=== PATIENT | female | born 1980 | race Caucasian/White ===

== ENCOUNTER 2016-11-29 16:11 | Emergency (ER) | payer MEDICAID ==
[~2016-11-29] VITALS: Ht 165.1 cm; Wt 99.8 kg
[~2016-11-29 16:11] MED LIST: ACHD5005 PO; ALPR1TAB2 PO; BUPR150T6 PO; BUTA-234 PO; HYDR1TAB8 OP; IBP600T1 PO; OXYC-197 PO; PREN-115 PO; SRTR100T PO; XANAX; [UNRECOGNIZED DRUG - REMARK]
--- OUTSIDE RECORDS SUMMARY | 2016-11-29 16:16 | XMS REPORT ---
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
--- OUTSIDE RECORDS SUMMARY | 2016-11-29 16:16 | XMS REPORT ---
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
--- OUTSIDE RECORDS SUMMARY | 2016-11-29 16:17 | XMS REPORT | Continuity of Care Document ---
Author Author [facility] Organization [facility] Address Unknown Phone Unavailable Allergies Active Description Code Type Severity Reaction Onset Reported/Identified Relationship to Patient Clinical Status Yes NKANo Known Allergies NKA Miscellaneous Allergy Unknown N/ A 12/21/2005 Medications Problems Date Dx Coded Attending Type Code Diagnosis Diagnosed By 08/11/2009 Ot 303.92 08/11/2009 Ot 571.1 08/11/2009 Ot 577.0 08/11/2009 [facility] 599.0 [facility] Major Depressive Affective Disorder Recurrent Episode Unspecified Degree 10/01/2010 [facility] 305.00 ALCOHOL ABUSE UNSPEC 10/01/2010 [facility] 307.51 Bulimia Nervosa 10/01/2010 [facility] 296.30 Major Depressive Affective Disorder Recurrent Episode Unspecified Degree 10/01/2010 [facility] 305.00 ALCOHOL ABUSE UNSPEC 10/01/2010 [facility] R 307.51 Bulimia Nervosa 10/01/2010 [facility] 296.30 Major Depressive Affective Disorder Recurrent Episode Unspecified Degree 10/01/2010 [facility] 305.00 ALCOHOL ABUSE UNSPEC 10/01/2010 [facility] 307.51 Bulimia Nervosa 10/01/2010 296.30 Major Depressive Affective Disorder Recurrent Episode Unspecified Degree 10/01/2010 305.00 ALCOHOL ABUSE UNSPEC 10/01/2010 307.51 Bulimia Nervosa 10/01/2010 296.30 Major Depressive Affective Disorder Recurrent Episode Unspecified Degree 10/01/2010 305.00 ALCOHOL ABUSE UNSPEC 10/01/2010 307.51 Bulimia Nervosa 10/01/2010 296.30 Major Depressive Affective Disorder Recurrent Episode Unspecified Degree 10/01/2010 305.00 ALCOHOL ABUSE UNSPEC 10/01/2010 307.51 Bulimia Nervosa 10/01/2010 296.30 Major Depressive Affective Disorder Recurrent Episode Unspecified Degree 10/01/2010 305.00 ALCOHOL ABUSE UNSPEC 10/01/2010 307.51 Bulimia Nervosa 10/01/2010 [facility], JAI R 296.30 Major Depressive Affective Disorder Recurrent Episode Unspecified Degree 10/01/2010 [facility], JAI R 305.00 ALCOHOL [facility]BUSE [facility]PEC [facility]51 Bulimia Nervosa 10/01/2010 [facility], JAI R 296.30 Major Depressive Affective Disorder Recurrent Episode Unspecified Degree 10/01[facility] 305.00 ALCOHOL ABUSE UNSPEC 10/01/2010 [facility], JAI R 307.51 Bulimia Nervosa 10/01/2010 [facility], JAI R 296.30 Major Depressive Affective Disorder Recurrent Episode Unspecified Degree 10/01/2010 [facility], JAI R 305.00 ALCOHOL ABUSE UNSPEC 10/01/2010 [facility] 307.51 Bulimia Nervosa 10/01/2010 [facility], JAI R 296.30 Major Depressive Affective Disorder Recurrent Episode Unspecified Degree 10/01/2010 [facility] R 305.00 ALCOHOL ABUSE UNSPEC 10/01/2010 [facility] R 307.51 Bulimia Nervosa 10/01/2010 [facility], JAI R 296.30 Major Depressive Affective Disorder Recurrent Episode Unspecified Degree 10/01/2010 [facility] R 305.00 ALCOHOL ABUSE UNSPEC 10/01/2010 [facility] R 307.51 Bulimia Nervosa 10/01/2010 [facility], JAI R 296.30 Major Depressive Affective Disorder Recurrent Episode Unspecified Degree 10/01/2010 [facility] R 305.00 ALCOHOL ABUSE UNSPEC 10/01/2010 [facility] R 307.51 Bulimia Nervosa 10/01/2010 [facility] R 296.30 Major Depressive Affective Disorder Recurrent Episode Unspecified Degree 10/01/2010 [facility] 305.00 ALCOHOL ABUSE UNSPEC 10/01/2010 [facility], JAI R 307.51 Bulimia Nervosa 10/01/2010 [facility], JAI R 296.30 Major Depressive Affective Disorder Recurrent Episode Unspecified Degree 10/01/[facility] 305.00 ALCOHOL ABUSE UNSPEC 10/01/2010 [facility], JAI R 307.51 Bulimia Nervosa 10/01/2010 [facility], JAI R 296.30 Major Depressive Affective Disorder Recurrent Episode Unspecified Degree 10/01/2010 [facility], JAI R 305.00 ALCOHOL ABUSE UNSPEC 10/01/2010 [facility], JAI R 307.51 Bulimia Nervosa 10/01/2010 [facility], JAI R 296.30 Major Depressive Affective Disorder Recurrent Episode Unspecified Degree 10/01/2010 [facility], JAI R 305.00 ALCOHOL ABUSE UNSPEC 10/01/2010 [facility], JAI R 307.51 Bulimia Nervosa 10/01/2010 [facility] [facility], TERESA R 296.30 Major Depressive Affective Disorder Recurrent Episode Unspecified Degree 10/01/2010 [facility] [employer], TERESA R 305.00 ALCOHOL ABUSE UNSPEC 10/01/2010 [employer] [employer], TERESA R 307.51 Bulimia Nervosa 10/01/2010 CAROLYN ABEBE VLADIMIR S 296.30 Major Depressive Affective Disorder Recurrent Episode Unspecified Degree 10/01/2010 CARLOYN [place] VLADIMIR S 305.00 ALCOHOL ABUSE UNSPEC 10/01/2010 CAROLYN [place]N VLADIMIR S 307.51 Bulimia Nervosa 11/03/2010 [facility], JAI R 078.10 Viral Warts Unspecified 11/03/2010 [facility], JAI R 300.00 AN ANXIETY UNSPEC 11/03/2010 [facility], JAI R 311 DEPRESSIVE DISORDER NOS 11/03/2010 [facility], JAI R 592.9 Urinary Calculus Unspecified 11/03/2010 [facility], JAI R 599.0 Urinary Tract Infection Site Not Specified 11/03/2010 [facility], JIA R 796.2 Elevated Blood Pressure Reading Without Diagnosis Of Hypertension 11/03/2010 [facility], JAI R 078.10 Viral Warts Unspecified 11/03/2010 [facility], JAI R 300.00 AN ANXIETY UNSPEC 11/03/2010 [facility], JAI R 311 DEPRESSIVE DISORDER NOS 11/03/2010 [facility], AJI R 592.9 Urinary Calculus Unspecified 11/03/2010 [facility], JAI R 599.0 Urinary Tract Infection Site Not Specified 11/03/2010 [facility], JAI R 796.2 Elevated Blood Pressure Reading Without Diagnosis Of Hypertension 11/03/2010 [facility], JAI R 078.10 Viral Warts Unspecified 11/03/2010 [facility] R 300.00 AN ANXIETY UNSPEC 11/03/2010 [facility], JAI R 311 DEPRESSIVE DISORDER NOS 11/03/2010 [facility] AJ[facility] R 592.9 Urinary Calculus Unspecified 11/03/2010 [facility], JAI R 599.0 Urinary Tract Infection Site Not Specified 11/03/2010 [facility], JAI R 796.2 Elevated Blood Pressure Reading Without Diagnosis Of Hypertension 11/03/2010 078.10 Viral Warts Unspecified 11/03/2010 300.00 AN ANXIETY UNSPEC 11/03/2010 311 DEPRESSIVE DISORDER NOS 11/03/2010 592.9 Urinary Calculus Unspecified 11/03/2010 599.0 Urinary Tract Infection Site Not Specified 11/03/2010 796.2 Elevated Blood Pressure Reading Without Diagnosis Of Hypertension 11/03/2010 078.10 Viral Warts Unspecified 11/03/2010 300.00 AN ANXIETY UNSPEC 11/03/2010 311 DEPRESSIVE DISORDER NOS 11/03/2010 592.9 Urinary Calculus Unspecified 11/03/2010 599.0 Urinary Tract Infection Site Not Specified 11/03/2010 796.2 Elevated Blood Pressure Reading Without Diagnosis Of Hypertension 11/03/2010 078.10 Viral Warts Unspecified 11/03/2010 300.00 AN ANXIETY UNSPEC 11/03/2010 311 DEPRESSIVE DISORDER NOS 11/03/2010 592.9 Urinary Calculus Unspecified 11/03/2010 599.0 Urinary Tract Infection Site Not Specified 11/03/2010 796.2 Elevated Blood Pressure Reading Without Diagnosis Of Hypertension 11/03/2010 078.10 Viral Warts Unspecified 11/03/2010 300.00 AN ANXIETY UNSPEC 11/03/2010 311 DEPRESSIVE DISORDER NOS 11/03/2010 592.9 Urinary Calculus Unspecified 11/03/2010 599.0 Urinary Tract Infection Site Not Specified 11/03/2010 796.2 Elevated Blood Pressure Reading Without Diagnosis Of Hypertension 11/03/2010 [facility], JAI R 078.10 Viral Warts Unspecified 11/03/2010 [facility] 300.00 AN ANXIETY UNSPEC 11/03/2010 [facility], JAI R 311 DEPRESSIVE DISORDER NOS 11/03/2010 [facility], JAI R 592.9 Urinary Calculus Unspecified 11/03/2010 [facility], JAI R 599.0 Urinary Tract Infection Site Not Specified 11/03/2010 [facility], JAI R 796.2 Elevated Blood Pressure Reading Without Diagnosis Of Hypertension 11/03/2010 [facility], JAI R 078.10 Viral Warts Unspecified 11/03/2010 [facility], JAI R 300.00 AN ANXIETY UNSPEC 11/03/2010 [facility], JAI R 311 DEPRESSIVE DISORDER NOS 11/03/2010 [facility] 592.9 Urinary Calculus Unspecified 11/03/2010 [facility], JAI R 599.0 Urinary Tract Infection Site Not Specified 11/03/2010 [facility] R 796.2 Elevated Blood Pressure Reading Without Diagnosis Of Hypertension 11/03/2010 [facility], JAI R 078.10 Viral Warts Unspecified 11/03/2010 [facility], JAI R 300.00 AN ANXIETY UNSPEC 11/03/2010 [facility], JAI R 311 DEPRESSIVE DISORDER NOS 11/03/2010 [facility] R 592.9 Urinary Calculus Unspecified 11/03/2010 [facility], JAI R 599.0 Urinary Tract Infection Site Not Specified 11/03/2010 [facility] R 796.2 Elevated Blood Pressure Reading Without Diagnosis Of Hypertension 11/03/2010 [facility] R 078.10 Viral Warts Unspecified 11/03/2010 [facility] JAI R 300.00 AN ANXIETY UNSPEC 11/03/2010 [facility], JAI R 311 DEPRESSIVE DISORDER NOS 11/03/2010 [facility] R 592.9 Urinary Calculus Unspecified 11/03/2010 [facility] JAI R 599.0 Urinary Tract Infection Site Not Specified 11/03/2010 [facility] JAI R 796.2 Elevated Blood Pressure Reading Without Diagnosis Of Hypertension 11/03/2010 [facility] JAI R 078.10 Viral Warts Unspecified 11/03/2010 [facility], JAI R 300.00 AN ANXIETY UNSPEC 11/03/2010 [facility], JAI R 311 DEPRESSIVE DISORDER NOS 11/03/2010 [facility], JAI R 592.9 Urinary Calculus Unspecified 11/03/2010 [facility], JAI R 599.0 Urinary Tract Infection Site Not Specified 11/03/2010 [facility] R 796.2 Elevated Blood Pressure Reading Without Diagnosis Of Hypertension 11/03/2010 [facility], JAI R 078.10 Viral Warts Unspecified 11/03/2010 [facility], JAI R 300.00 AN ANXIETY UNSPEC 11/03/2010 [facility], JAI R 311 DEPRESSIVE DISORDER NOS 11/03/2010 [facility], JAI R 592.9 Urinary Calculus Unspecified 11/03/2010 [facility] R 599.0 Urinary Tract Infection Site Not Specified 11/03/2010 [facility] JAI R 796.2 Elevated Blood Pressure Reading Without Diagnosis Of Hypertension 11/03/2010 [facility], JAI R 078.10 Viral Warts Unspecified 11/03/2010 [facility], JAI R 300.00 AN ANXIETY UNSPEC 11/03/2010 [facility] R 311 DEPRESSIVE DISORDER NOS 11/03/2010 [facility] JAI R 592.9 Urinary Calculus Unspecified 11/03/2010 [facility] J[facility] R 599.0 Urinary Tract Infection Site Not Specified 11/03/2010 [facility] JAI R 796.2 Elevated Blood Pressure Reading Without Diagnosis Of Hypertension 11/03/2010 [facility] JAI R 078.10 Viral Warts Unspecified 11/03/2010 [facility] JAI R 300.00 AN ANXIETY UNSPEC 11/03/2010 [facility], JAI R 311 DEPRESSIVE DISORDER NOS 11/03/2010 [facility] J[facility] R 592.9 Urinary Calculus Unspecified 11/03/2010 [facility] J[facility] R 599.0 Urinary Tract Infection Site Not Specified 11/03/2010 [facility] JAI R 796.2 Elevated Blood Pressure Reading Without Diagnosis Of Hypertension 11/03/2010 [facility] JAI R 078.10 Viral Warts Unspecified 11/03/2010 [facility], JAI R 300.00 AN ANXIETY UNSPEC 11/03/2010 [facility], JAI R 311 DEPRESSIVE DISORDER NOS 11/03/2010 [facility], JAI R 592.9 Urinary Calculus Unspecified 11/03/2010 [facility], JAI R 599.0 Urinary Tract Infection Site Not Specified 11/03/2010 [facility], JAI R 796.2 Elevated Blood Pressure Reading Without Diagnosis Of Hypertension 11/03/2010 [facility]THAK [facility], JAI R 078.10 Viral Warts Unspecified 11/03/2010 [facility], JAI R 300.00 AN ANXIETY UNSPEC 11/03/2010 SARHTAK [facility], JAI R 311 DEPRESSIVE DISORDER NOS 11/03/2010 [facility], JAI R 592.9 Urinary Calculus Unspecified 11/03/2010 [facility], JAI R 599.0 Urinary Tract Infection Site Not Specified 11/03/2010 [facility], JAI R 796.2 Elevated Blood Pressure Reading Without Diagnosis Of Hypertension 11/03/2010 GISELLE LEE APRNIA R 078.10 Viral Warts Unspecified 11/03/2010 GISELLE LEE APRNIA R 300.00 AN ANXIETY UNSPEC 11/03/2010 GISELLE LEE APRNIA R 311 DEPRESSIVE DISORDER NOS 11/03/2010 PEGGY LEE APRNRICIA R 592.9 Urinary Calculus Unspecified 11/03/2010 PEGGY LEE APRNRICIA R 599.0 Urinary Tract Infection Site Not Specified 11/03/2010 GISELLE LEE APRNIA R 796.2 Elevated Blood Pressure Reading Without Diagnosis Of Hypertension 11/03/2010 VLADIMIR LEON APRN S 078.10 Viral Warts Unspecified 11/03/2010 VLADIMIR LEON APRN S 300.00 AN ANXIETY UNSPEC 11/03/2010 VLADIMIR LEON APRN S 311 DEPRESSIVE DISORDER NOS 11/03/2010 LOKI LEON APRNNDA S 592.9 Urinary Calculus Unspecified 11/03/2010 LOKI LEON APRNNDA S 599.0 Urinary Tract Infection Site Not Specified 11/03/2010 LOKI LEON APRNNDA S 796.2 Elevated Blood Pressure Reading Without Diagnosis Of Hypertension 01/20/2011 [facility], JAI R 401.9 Unspecified Essential Hypertension 01/20/2011 [facility], JAI R 401.9 Unspecified Essential Hypertension 01/20/2011 [facility], JAI R 401.9 Unspecified Essential Hypertension 01/20/2011 401.9 Unspecified Essential Hypertension 01/20/2011 401.9 Unspecified Essential Hypertension 01/20/2011 401.9 Unspecified Essential Hypertension 01/20/2011 401.9 Unspecified Essential Hypertension 01/20/2011 [facility], JAI R 401.9 Unspecified Essential Hypertension 01/20/2011 [facility], JAI R 401.9 Unspecified Essential Hypertension 01/20/2011 [facility], JAI R 401.9 Unspecified Essential Hypertension 01/20/2011 [facility], JAI R 401.9 Unspecified Essential Hypertension 01/20/2011 [facility], JAI R 401.9 Unspecified Essential Hypertension 01/20/2011 [facility], JAI R 401.9 Unspecified Essential Hypertension 01/20/2011 [facility], JAI R 401.9 Unspecified Essential Hypertension 01/20/2011 [facility], JAI R 401.9 Unspecified Essential Hypertension 01/20/2011 [facility], JAI R 401.9 Unspecified Essential Hypertension 01/20/2011 [facility], JAI R 401.9 Unspecified Essential Hypertension 01/20/2011 JESUS WHITTINGTONNTERESA R 401.9 Unspecified Essential Hypertension 01/20/2011 CAROLYN PERFECT BINDER SETTERADRIANAA S 401.9 Unspecified Essential Hypertension 01/28/2011 [facility], JAI R 401.1 BENIGN ESSENTIAL HYPERTENSION 01/28/2011 [facility], JAI R 401.1 BENIGN ESSENTIAL HYPERTENSION 01/28/2011 [facility], JAI R 401.1 BENIGN ESSENTIAL HYPERTENSION 01/28/2011 401.1 BENIGN ESSENTIAL HYPERTENSION 01/28/2011 401.1 BENIGN ESSENTIAL HYPERTENSION 01/28/2011 401.1 BENIGN ESSENTIAL HYPERTENSION 01/28/2011 401.1 BENIGN ESSENTIAL HYPERTENSION 01/28/2011 [facility], JAI R 401.1 BENIGN ESSENTIAL HYPERTENSION 01/28/2011 [facility], JAI R 401.1 BENIGN ESSENTIAL HYPERTENSION 01/28/2011 [facility], JAI R 401.1 BENIGN ESSENTIAL HYPERTENSION 01/28/2011 [facility], JAI R 401.1 BENIGN ESSENTIAL HYPERTENSION 01/28/2011 [facility], JAI R 401.1 BENIGN ESSENTIAL HYPERTENSION 01/28/2011 [facility], JAI R 401.1 BENIGN ESSENTIAL HYPERTENSION 01/28/2011 [facility], JAI R 401.1 BENIGN ESSENTIAL HYPERTENSION 01/28/2011 [facility], JAI R 401.1 BENIGN ESSENTIAL HYPERTENSION 01/28/2011 [facility], JAI R 401.1 BENIGN ESSENTIAL HYPERTENSION 01/28/2011 [facility], JAI R 401.1 BENIGN ESSENTIAL HYPERTENSION 01/28/2011 TERESA LEE APRN R 401.1 BENIGN ESSENTIAL HYPERTENSION 01/28/2011 VLADIMIR LEON APRN S 401.1 BENIGN ESSENTIAL HYPERTENSION 03/03/2011 [facility], JAI R 786.2 COUGH 03/03/2011 [facility], JAI R 786.2 COUGH 03/03/2011 [facility], JAI R 786.2 COUGH 03/03/2011 786.2 COUGH 03/03/2011 786.2 COUGH 03/03/2011 786.2 COUGH 03/03/2011 786.2 COUGH 03/03/2011 [facility], JAI R 786.2 COUGH 03/03/2011 [facility], JAI R 786.2 [facility]2 COUGH 03/03/2011 [facility], JAI R 786.2 COUGH 03/03/2011 [facility], JAI R 786.2 COUGH 03/03/2011 [facility], JAI R 786.2 COUGH 03/03/2011 [facility], JAI R 786.2 COUGH 03/03/2011 [facility], JAI R 786.2 COUGH 03/03/2011 [facility], JAI R 786.2 COUGH 03/03/2011 [facility] 786.2 COUGH 03/03/2011 TERESA LEE APRN R 786.2 COUGH 03/03/2011 VLADIMIR LEON APRN S 786.2 COUGH 08/05/2011 [facility], JAI R 301.6 PD DEPENDENT 08/05/2011 [facility], JAI R 301.6 PD DEPENDENT 08/05/[facility] 301.6 PD DEPENDENT 08/05/2011 301.6 PD DEPENDENT 08/05/2011 301.6 PD DEPENDENT 08/05/2011 301.6 PD DEPENDENT 08/05/2011 301.6 PD DEPENDENT 08/05/2011 [facility], JAI R 301.6 PD DEPENDENT 08/05/[facility] R 301.6 PD DEPENDENT 08/05/2011 [facility], JAI R 301.6 PD DEPENDENT 08/05/2011 [facility], JAI R 301.6 PD DEPENDENT 08/05/2011 [facility], JAI R 301.6 PD DEPENDENT 08/05/2011 [facility], JAI R 301.6 PD DEPENDENT 08/05/2011 [facility], JAI R 301.6 PD DEPENDENT 08/05/2011 [facility], JAI R 301.6 PD DEPENDENT 08/05/2011 [facility], JAI R 301.6 PD DEPENDENT 08/05/2011 [facility], JAI R 301.6 PD DEPENDENT 08/05/2011 JESUS [employer], TERESA R 301.6 PD DEPENDENT 08/05/2011 CAROLYN [employer]TER, VLADIMIR S 301.6 PD DEPENDENT 12/10/2011 Ot 620.2 OVARIAN CYST NEC/NOS 12/10/2011 Ot 789.03 ABDOMINAL PAIN, RIGHT LOWER QUADRANT 02/10/2012 [facility], JAI R 034.0 STREP THROAT 02/10/2012 034.0 STREP THROAT 02/10/2012 034.0 STREP THROAT 02/10/2012 034.0 STREP THROAT 02/10/2012 034.0 STREP THROAT 02/10/2012 [facility], JAI R 034.0 STREP THROAT 02/10/2012 [facility], JAI R 034.0 STREP THROAT 02/10/2012 [facility], JAI R 034.0 STREP THROAT 02/10/2012 [facility], JAI R 034.0 STREP THROAT 02/10/2012 [facility], JAI R 034.0 STREP THROAT 02/10/2012 [facility], JAI R 034.0 STREP THROAT 02/10/2012 [facility], JAI R 034.0 STREP THROAT 02/10/2012 [facility], JAI R 034.0 STREP THROAT 02/10/2012 [facility], JAI R 034.0 STREP THROAT 02/10/2012 [facility], JAI R 034.0 STREP THROAT 02/10/2012 JESUS PERFECT BINDER SETTERPEGGYTERESA R 034.0 STREP THROAT 02/10/2012 CAROLYN PER[employer]ECT [employer]ER SETTER, VLADIMIR S 034.0 STREP THROAT 08/03/2012 GEOVANNA PANDEY DO Ot 300.00 ANXIETY STATE NOS 08/03/2012 GEOVANNA PANDEY DO Ot 311 DEPRESSIVE DISORDER NEC 08/03/2012 GEOVANNA PANDEY DO Ot 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 08/03/2012 GEOVANNA PANDEY DO Ot 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 08/03/2012 GEOVANNA PANDEY DO Ot V06.4 [id number] 08/03/2012 GEOVANNA PANDEY DO Ot V27.0 DELIVER-SINGLE LIVEBORN 09/11/2012 [facility], JAI R 462 ACUTE PHARYNGITIS 09/11/2012 [facility], JAI R 462 ACUTE PHARYNGITIS 09/11/2012 [facility], JAI R 462 ACUTE PHARYNGITIS 09/11/2012 [facility], JAI R 462 ACUTE PHARYNGITIS 09/11/2012 [facility], JAI R 462 ACUTE PHARYNGITIS 09/11/2012 [facility], JAI R 462 ACUTE PHARYNGITIS 09/11/2012 [facility], JAI R 462 ACUTE PHARYNGITIS 09/11/2012 [facility], JAI R 462 ACUTE PHARYNGITIS 09/11/2012 [facility], JAI R 462 ACUTE PHARYNGITIS 09/11/2012 [facility], JAI R 462 ACUTE PHARYNGITIS 09/11/2012 TERESA LEE APRN R 462 ACUTE PHARYNGITIS 09/11/2012 VLADIMIR LEON APRN S 462 ACUTE PHARYNGITIS 05/22/2013 ELBA HOLLIS, IBETH Kowalski Ot 620.2 OVARIAN CYST NEC/NOS 05/22/2013 ELBA HOLLIS, IBETH Kowalski Ot 789.09 ABDOMINAL PAIN, OTHER SPECIFIED SITE 08/13/2013 TERESA LEE APRN R 692.9 CONTACT DERMATITIS AND OTHER ECZEMA UNSPECIFIED CAUSE 08/13/2013 VLADIMIR LEON APRN S 692.9 CONTACT DERMATITIS AND OTHER ECZEMA UNSPECIFIED CAUSE 05/22/2014 VLADIMIR LEON APRN S 564.00 CONSTIPATION 05/22/2014 VLADIMIR LEON APRN S 780.79 FATIGUE 05/22/2014 VLADIMIR LEON APRN S 789.00 ABDOMINAL PAIN UNSPECIFIED SITE 05/22/2014 VLADIMIR LEON APRN V70.0 EXAM - ROUTINE H&P 06/04/2014 VLADIMIR LEON SIDING INSTALLER Ot 305.00 06/04/2014 VLADIMIR LEON SIDING INSTALLER Ot 780.79 06/04/2014 VLADIMIR LEON SIDING INSTALLER Ot 789.00 07/18/2014 VLADIMIR LEON SIDING INSTALLER Ot 305.00 07/18/2014 VLADIMIR LEON SIDING INSTALLER Ot 780.79 07/18/2014 VLADIMIR LEON SIDING INSTALLER Ot 789.00 05/26/2015 VLADIMIR LEON SIDING INSTALLER Ot 305.00 ALCOHOL ABUSE-UNSPEC 05/26/2015 VLADIMIR LEON SIDING INSTALLER Ot 780.79 OTH MALAISE FATIGUE 05/26/2015 VLADIMIR LEON SIDING INSTALLER Ot 789.00 ABDOMINAL PAIN, UNSPECIFIED SITE 07/13/2015 VLADIMIR LEON SIDING INSTALLER Ot 305.00 ALCOHOL ABUSE-UNSPEC 07/13/2015 VLADIMIR LEON SIDING INSTALLER Ot 780.79 OTH MALAISE FATIGUE 07/13/2015 VLADIMIR LEON SIDING INSTALLER Ot 789.00 ABDOMINAL PAIN, UNSPECIFIED SITE 07/14/2015 VLADIMIR LEON SIDING INSTALLER Ot 305.00 ALCOHOL ABUSE-UNSPEC 07/14/2015 ADRIANA LEONA SIDING INSTALLER Ot 780.79 OTH MALAISE FATIGUE 07/14/2015 VLADIMIR LEON SIDING INSTALLER Ot 789.00 ABDOMINAL PAIN, UNSPECIFIED SITE 12/15/2015 VLADIMIR LEON SIDING INSTALLER Ot 305.00 ALCOHOL ABUSE-UNSPEC 12/15/2015 VLADIMIR LEON SIDING INSTALLER Ot 780.79 OTH MALAISE FATIGUE 12/15/2015 VLADIMIR LEON SIDING INSTALLER Ot 789.00 ABDOMINAL PAIN, UNSPECIFIED SITE 12/15/2015 GREGORIA OQUENDO PERFECT BINDER SETTER Ot F17.210 NICOTINE DEPENDENCE, CIGARETTES, UNCOMPL 12/15/2015 GREGORIA OQUENDO PERFECT BINDER SETTER Ot S93.401A SPRAIN OF UNSPECIFIED LIGAMENT OF RIGHT 12/15/2015 GREGORIA OQUENDO PERFECT BINDER SETTER Ot S99.921A UNSPECIFIED INJURY OF RIGHT FOOT, INITIA 12/15/2015 GREGORIA OQUENDO APRN Ot W17.89XA OTHER FALL FROM ONE LEVEL TO ANOTHER, IN 12/15/2015 GREGORIA OQUENDO APRN Ot W55.19XA OTHER CONTACT WITH HORSE, INITIAL ENCOUN 12/15/2015 GREGORIA OQUENDO APRN Ot Y93.52 ACTIVITY, HORSEBACK RIDING 12/15/2015 GREGORIA OQUENDO APRN Ot Y93.9 ACTIVITY, UNSPECIFIED 12/15/2015 GREGORIA OQUENDO APRN Ot Y99.8 OTHER EXTERNAL CAUSE STATUS 12/16/2015 GREGORIA OQUENDO APRN Ot F17.210 NICOTINE DEPENDENCE, CIGARETTES, UNCOMPL 12/16/2015 GREGORIA OQUENDO APRN Ot S93.401A SPRAIN OF UNSPECIFIED LIGAMENT OF RIGHT 12/16/2015 GREGORIA OQUENDO APRN Ot S99.921A UNSPECIFIED INJURY OF RIGHT FOOT, INITIA 12/16/2015 GREGORIA OQUENDO APRN Ot W17.89XA OTHER FALL FROM ONE LEVEL TO ANOTHER, IN 12/16/2015 GREGORIA OQUENDO APRN Ot W55.19XA OTHER CONTACT WITH HORSE, INITIAL ENCOUN 12/16/2015 GREGORIA OQUENDO APRN Ot Y93.52 ACTIVITY, HORSEBACK RIDING 12/16/2015 GREGORIA OQUENDO APRN Ot Y93.9 ACTIVITY, UNSPECIFIED 12/16/2015 GREGORIA OQUENDO APRN Ot Y99.8 OTHER EXTERNAL CAUSE STATUS 12/25/2015 VLADIMIR LEON Ot 305.00 ALCOHOL ABUSE-UNSPEC 12/25/2015 VLADIMIR LEON Ot 780.79 OTH MALAISE FATIGUE 12/25/2015 VLADIMIR LEON Ot 789.00 ABDOMINAL PAIN, UNSPECIFIED SITE 02/08/2016 VLADIMIR LEONP Ot 305.00 ALCOHOL ABUSE-UNSPEC 02/08/2016 VLADIMIR LEON Ot 780.79 OTH MALAISE FATIGUE 02/08/2016 VLADIMIR LEON Ot 789.00 ABDOMINAL PAIN, UNSPECIFIED SITE Procedures Code Description [place] [address] INDIV PSYTX 45/50 MIN 12/01/2011 90604 INDIV PSYTX 45/50 MIN 12/16/2011 68215 INDIV PSYTX 45/50 MIN 01/21/2012 91981 PSYTX PT&/FAMILY 45 MINUTES 02/10/2012 67678 PSYTX PT&/FAMILY 45 MINUTES 03/16/2012 19290 PSYTX PT&/FAMILY 45 MINUTES 04/06/2012 37948 PSYTX PT&/FAMILY 45 MINUTES 05/19/2012 91208 PSYTX PT&/FAMILY 45 MINUTES 07/06/2012 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 08/01/2012 73.6 EPISIOTOMY 2012 93677 PSYTX PT&/FAMILY 45 MINUTES 10/18/2012 25221 PSYTX PT&/FAMILY 45 MINUTES 12/01/2012 51572 PSYTX PT&/FAMILY 45 MINUTES 02/01/2013 38319 PSYTX PT&/FAMILY 45 MINUTES 03/13/2013 58353 PSYTX PT&/FAMILY 45 MINUTES 03/28/2013 62711 PSYTX PT&/FAMILY 45 MINUTES 05/10/2013 54679 PSYTX PT&/FAMILY 45 MINUTES 05/24/2013 07637 PSYTX PT&/FAMILY 45 MINUTES 06/22/2013 03691 PSYTX PT&/FAMILY 45 MINUTES 07/17/2013 18119 PSYTX PT&/FAMILY 45 MINUTES 07/31/2013 95977 ROUTINE VENIPUNCTURE 05/29/2014 69910 US ABDOMINAL ULTRASOUND, COMPLETE 05/29/2014 67168 CBC 05/29/2014 [id number] GFR CALC (RESULT ONLY) 05/29/2014 96451 CMP 05/29/2014 86798 LIPID PANEL 05/29 53244 LIPASE 2014 55333 TSH 05/29/2014 Results Encounters ACCT No. Visit Date/Time Discharge Status Pt. Type Provider Facility Loc./Unit Complaint [id number] 12/15/2015 10:24:00 2015 12:49:00 DIS Emergency GREGORIA OQUENDO APRN [facility] ER RIGHT FOOT INJURY [id number] 05/29/2014 07:28:00 2014 23:59:59 CLS Outpatient VLADIMIR LEON [facility] RAD ABD PAIN,FATIGUE [id number] 05/22/2013 16:27:00 2013 19:09:00 DIS Emergency ELBA HOLLIS, IBETH T [facility] ER CRAMPING [id number] 08/01/2012 07:25:00 2012 12:30:00 DIS Inpatient GEOVANNA PANDEY DO [facility] WS INDUCTION [id number] 06/04/2014 10:37:00 Document Registration [id number] 06/04/2014 10:37:00 Document Registration [id number] 05/29/2014 08:23:00 05/29/2014 23: 59:59 CLS Outpatient CAROLYN PERFECT BINDER SETTERVLADIMIR Samara [id number] 08/13/2013 13:55:00 08/13/2013 23: 59:59 CLS Outpatient JESUS ABEBETERESA Ronald [id number] 07/31/2013 16:18:00 07/31/2013 23: 59:59 CLS Outpatient SARTHAK LSCS, JAI Cardenas [id number] 07/17/2013 16:58:00 07/17/2013 23: 59:59 CLS Outpatient SARTHAK LSCS, JAI Ronald [id number] 06/22/2013 15:06:00 06/22/2013 23: 59:59 CLS Outpatient SARTHAK LSCS, JAI R [id number] 05/23/2013 15:05:00 05/23/2013 23: 59:59 CLS Outpatient SARTHAK LSCS, JAI R [id number] 05/09/2013 15:08:00 05/09/2013 23: 59:59 CLS Outpatient SARTHAK LSCS, JAI Cardenas [id number] 03/28/2013 15:25:00 03/28/2013 23: 59:59 CLS Outpatient SARTHAK LSCS, JAI R [id number] 03/09/2013 14:01:00 03/09/2013 23: 59:59 CLS Outpatient SARTHAK LSCS, JAI R [id number] 02/01/2013 15:06:00 02/01/2013 23: 59:59 CLS Outpatient SARTHAK LSCS, JAI R [id number] 11/30/2012 16:10:00 11/30/2012 23: 59:59 CLS Outpatient SARTHAK LSCS, JAI R [id number] 10/18/2012 15:07:00 10/18/2012 23: 59:59 CLS Outpatient SARTHAK LSCS, JAI R [id number] 04/06/2012 13:04:00 04/06/2012 23: 59:59 CLS Outpatient [id number] 03/16/2012 16:05:00 03/16/2012 23: 59:59 CLS Outpatient [id number] 02/10/2012 15:02:00 02/10/2012 23: 59:59 [id number] 01/13/2012 15:05:00 01/13/2012 23: 59:59 [id number] 12/01/2011 14:05:00 12/01/2011 23: 59:59 [id number] 07/04/2012 15:05:00 Document Registration [id number] 05/19/2012 15:04:00 Document Registration
[2016-11-29] MEDS ORDERED: ANTACID SUSP 30 ML UDC (MYLANTA) PO ONE (17:00)
[2016-11-29] MEDS ORDERED: LACTATED RINGERS 1,000 ML IV SCH (17:00)
[2016-11-29] MEDS ORDERED: LIDOCAINE 2% VISCOUS 15 ML UDC PO ONE (17:00)
[2016-11-29] MEDS ORDERED: HYOSCYAMINE 0.125 MG (LEVSIN) TAB PO ONE (17:00)
[2016-11-29 17:40] LABS: BASOPHILS % (AUTO) 0 % (0-10); EOSINOPHILS # (AUTO) 0.4 10^3/uL (0.0-0.3); EOSINOPHILS % (AUTO) 4 % (0-10); LYMPHOCYTES # (AUTO) 2.7 X 10^3 (1.0-4.0); LYMPHOCYTES % (AUTO) 23 % (12-44); MEAN CORPUSCULAR HEMOGLOBIN 29 PG (25-34); MEAN CORPUSCULAR HGB CONC 33 G/DL (32-36); MEAN CORPUSCULAR VOLUME 86 FL (80-99); MEAN PLATELET VOLUME 9.6 FL (7.4-10.4); MONOCYTES # (AUTO) 0.8 X 10^3 (0.0-1.0); MONOCYTES % (AUTO) 7 % (0-12); NEUTROPHILS # (AUTO) 7.6 X 10^3 (1.8-7.8); NEUTROPHILS % (AUTO) 66 % (42-75); PLATELET COUNT 306 10^3/uL (130-400); RED BLOOD COUNT 5.36 10^6/uL (4.35-5.85); RED CELL DISTRIBUTION WIDTH 13.6 % (10.0-14.5); WHITE BLOOD COUNT 11.5 10^3/uL (4.3-11.0)
[2016-11-29 17:44] LABS: BILIRUBIN,URINE NEGATIVE (NEGATIVE); KETONES,URINE NEGATIVE (NEGATIVE); LEUKOCYTE ESTERASE ,URINE NEGATIVE (NEGATIVE); NITRITE,URINE NEGATIVE (NEGATIVE); PH,URINE 5 (5-9); PROTEIN,URINE 4+ (NEGATIVE); UROBILINOGEN,URINE NORMAL (NORMAL)
[2016-11-29 17:55] LABS: WBC,URINE 0-2 /HPF
[2016-11-29 18:01] LABS: ALANINE AMINOTRANSFERASE 26 U/L (0-55); ALBUMIN 4.1 GM/DL (3.2-4.5); ANION GAP 7 MMOL/L (5-14); ASPARTATE AMINO TRANSFERASE 25 U/L (5-34); BILIRUBIN,TOTAL 0.5 MG/DL (0.1-1.0); BLOOD UREA NITROGEN 9 MG/DL (7-18); BUN/CREATININE RATIO 11; CALCIUM 9.4 MG/DL (8.5-10.1); CARBON DIOXIDE 23 MMOL/L (21-32); CHLORIDE 108 MMOL/L (98-107); CREATININE SERUM 0.83 MG/DL (0.60-1.30); GFR ESTIMATED > 60; GLUCOSE 104 MG/DL (70-105); LIPASE 12 U/L (8-78); POTASSIUM 3.8 MMOL/L (3.6-5.0); SODIUM 138 MMOL/L (135-145); TOTAL PROTEIN 7.7 GM/DL (6.4-8.2)
--- NOTE | 2016-11-29 18:03 | ED Abdominal Pain ---
General Chief Complaint: Abdominal/GI Problems Stated Complaint: DIARRHEA/STOMACH PAIN Nursing Triage Note: Pt c/o upper abd pain and diarrhea since Sunday 11/26. Pt reports decrease in energy. Sepsis Screen: No Definite Risk Source of Information: Patient Exam Limitations: No Limitations History of Present Illness Time Seen By Provider: 18:02 Initial Comments To ER with a 1 week history of epigastric abdominal pain without vomiting. She has had watery diarrhea. Timing/Duration: 1 Week Severity/Quality: Cramping Location: Epigastric Radiation: No Radiation Activities at Onset: None Associated Symptoms: Nausea/Vomiting (nasuea but no vomiting) Allergies and Home Medications Allergies Coded Allergies: NKANo Known Allergies (Verified Allergy, Unknown, 12/21/05) Home Medications Alprazolam 1 Mg Tablet, 1 MG PO NEEDED, (Reported) Ondansetron 8 Mg Tab.rapdis, 8 MG PO Q6H PRN for NAUSEA/VOMITING-1ST LINE, #14 Prescribed by: GREGORIA OQUENDO on 11/29/16 1841 Oxycodone HCl/Acetaminophen 1 Each Tablet, 1 EACH PO Q4H PRN for PAIN, #10 Prescribed by: GREGORIA OQUENDO on 12/15/15 1242 Sertraline Hcl 100 Mg Tablet, 1 TAB PO DAILY, #30 Prescribed by: GEOVANNA PANDEY on 08/03/12 0906 Review of Systems Constitutional: see HPI EENTM: No Symptoms Reported Respiratory: No Symptoms Reported Cardiovascular: No Symptoms Reported Gastrointestinal: See HPI, Abdominal Pain, Diarrhea, Nausea Genitourinary: No Symptoms Reported Musculoskeletal: no symptoms reported Skin: no symptoms reported Psychiatric/Neurological: No Symptoms Reported Endocrine: No Symptoms Reported Hematologic/Lymphatic: No Symptoms Reported Past Rlgmoks-Bhtzlc-Nzdhzk Hx Patient Social History Recent Foreign Travel: No Contact w/Someone Who Travel: No Recent Infectious Disease Expo: No Recent Hopitalizations: No Immunizations Up To Date Tetanus Booster (TDap): Unknown Seasonal Allergies Seasonal Allergies: Yes Reproductive System Hx Reproductive Disorders: No Genitourinary Genitourinary Disorders: Bladder Infection Psychosocial Behavioral Health Disorders: Anxiety, Depression Blood Transfusions Adverse Reaction to a Blood Tr: No Physical Exam Vital Signs VS - Last 72 Hours, by Label 11/29/16 16:41 Temp 97.2 Pulse 98 Resp 18 B/P (MAP) 164/110 Pulse Ox 96 O2 Delivery Room Air Capillary Refill : Less Than 3 Seconds General Appearance: WD/WN, no apparent distress HEENT: PERRL/EOMI, normal ENT inspection Neck: non-tender, full range of motion Respiratory: no respiratory distress, no accessory muscle use Cardiovascular: regular rate, rhythm, no murmur Gastrointestinal: normal bowel sounds, non tender (mild epigastric tenderness) , soft, tenderness Extremities: normal range of motion, non-tender Neurologic/Psychiatric: alert, normal mood/affect, oriented x 3 Skin: normal color, warm/dry Progress/Results/Core Measures Results/Orders Lab Results Laboratory Tests Test 11/29/16 17:30 11/29/16 17:34 Range/Units White Blood Count 11.5 H 4.3-11.0 10^3/uL Red Blood Count 5.36 4.35-5.85 10^6/uL Hemoglobin 15.3 11.5-16.0 G/DL Hematocrit 46 35-52 % Mean Corpuscular Volume 86 80-99 FL Mean Corpuscular Hemoglobin 29 25-34 PG Mean Corpuscular Hemoglobin Concent 33 32-36 G/DL Red Cell Distribution Width 13.6 10.0-14.5 % Platelet Count 306 130-400 10^3/uL Mean Platelet Volume 9.6 7.4-10.4 FL Neutrophils (%) (Auto) 66 42-75 % Lymphocytes (%) (Auto) 23 12-44 % Monocytes (%) (Auto) 7 0-12 % Eosinophils (%) (Auto) 4 0-10 % Basophils (%) (Auto) 0 0-10 % Neutrophils # (Auto) 7.6 1.8-7.8 X 10^3 Lymphocytes # (Auto) 2.7 1.0-4.0 X 10^3 Monocytes # (Auto) 0.8 0.0-1.0 X 10^3 Eosinophils # (Auto) 0.4 H 0.0-0.3 10^3/uL Basophils # (Auto) 0.0 0.0-0.1 10^3/uL Sodium Level 138 135-145 MMOL/L Potassium Level 3.8 3.6-5.0 MMOL/L Chloride Level 108 H 98-107 MMOL/L Carbon Dioxide Level 23 21-32 MMOL/L Anion Gap 7 5-14 MMOL/L Blood Urea Nitrogen 9 7-18 MG/DL Creatinine 0.83 0.60-1.30 MG/DL Estimat Glomerular Filtration Rate > 60 BUN/Creatinine Ratio 11 Glucose Level 104 70-105 MG/DL Calcium Level 9.4 8.5-10.1 MG/DL Total Bilirubin 0.5 0.1-1.0 MG/DL Aspartate Amino Transf (AST/SGOT) 25 5-34 U/L Alanine Aminotransferase (ALT/SGPT) 26 0-55 U/L Alkaline Phosphatase 92 40-136 U/L Total Protein 7.7 6.4-8.2 GM/DL Albumin 4.1 3.2-4.5 GM/DL Lipase 12 8-78 U/L Urine Color YELLOW Urine Clarity VERY CLOUDY H Urine pH 5 5-9 Urine Specific [place] 1.020 1.016-1.022 Urine Protein 4+ NEGATIVE Urine Glucose (UA) NEGATIVE NEGATIVE Urine Ketones NEGATIVE NEGATIVE Urine Nitrite NEGATIVE NEGATIVE Urine Bilirubin NEGATIVE NEGATIVE Urine Urobilinogen NORMAL NORMAL MG/DL Urine Leukocyte Esterase NEGATIVE NEGATIVE Urine RBC (Auto) 4+ H NEGATIVE Urine RBC 5-10 H /HPF Urine WBC 0-2 /HPF Urine Squamous Epithelial Cells 10-25 H /HPF Urine Crystals NONE /LPF Urine Bacteria LARGE H /HPF Urine Casts NONE /LPF Urine Mucus NEGATIVE /LPF Urine Culture Indicated NO My Orders Orders - GREGORIA OQUENDO APRN Cbc With Automated Diff (11/29/16 16:46) Comprehensive Metabolic Panel (11/29/16 16:46) Ua Culture If Indicated (11/29/16 16:46) Saline Lock/Iv-Start (11/29/16 16:46) Lipase (11/29/16 16:46) Lactated Ringers (Lr 1000 Ml Iv Solution (11/29/16 17:00) Hyoscyamine Sl Tablet (Levsin Sl Tablet) (11/29/16 17:00) Antacid Suspension (Mylanta Suspension (11/29/16 17:00) Lidocaine 2% Viscous 15 Ml (Xylocaine Vi (11/29/16 17:00) Us Gallbladder 83465 (11/29/16 18:01) Acute Abd Series (11/29/16 18:48) Medications Given in ED Current Medications Medications Dose Ordered Sig/Teri Route Start Time Stop Time Status Last Admin Dose Admin Al Hydrox/Mg Hydrox/Simethicone 30 ml ONCE ONCE PO 11/29/16 17:00 11/29/16 17:01 DC 11/29/16 17:57 30 ML Hyoscyamine Sulfate 0.25 mg ONCE ONCE PO 11/29/16 17:00 11/29/16 17:01 DC 11/29/16 17:57 0.25 MG Lidocaine HCl 15 ml ONCE ONCE PO 11/29/16 17:00 11/29/16 17:01 DC 11/29/16 17:57 15 ML Vital Signs/I&O Vital Sign - Last 12Hours 11/29/16 16:41 Temp 97.2 Pulse 98 Resp 18 B/P (MAP) 164/110 Pulse Ox 96 O2 Delivery Room Air Blood Pressure Mean: 128 Departure Impression Impression: Primary Impression: Gastroenteritis Additional Impression: Ileus Disposition: HOME, SELF-CARE Condition: Stable Departure-Patient Inst. Decision time for Depature: 18:39 Referrals: [facility] (PCP/Family) Primary Care Physician Patient Instructions: NO INSTRUCTIONS GIVEN Add. Discharge Instructions: 1. Return to ER for any concerns 2. See your doctor next week 3. Use over the counter imodium as directed on the bottle for the diarrhea All discharge instructions reviewed with patient and/or family. Voiced understanding. Scripts Ondansetron (Zofran Odt) 8 Mg Tab.rapdis 8 MG PO Q6H Y for NAUSEA/VOMITING-1ST LINE, #14 TAB Prov: GREGORIA OQUENDO APRN 11/29/16 Work/School Note: Work Release Form Date Seen in the Emergency Department: Nov 29, 2016 Return to Work: Dec 01, 2016 GREOGRIA OQUENDO APRN Nov 29, 2016 18:03
--- NOTE | 2016-11-29 18:28 | Diagnostic Imaging Report ---
PROCEDURE: US Gallbladder. TECHNIQUE: Multiple real-time grayscale images were obtained over the right upper quadrant in various projections. INDICATION: Abdominal pain with diarrhea. FINDINGS: There is increased echogenicity of the liver. The liver is enlarged measuring 20 cm in long axis. Gallbladder shows no gallstones or wall thickening. The intrahepatic biliary radicles are not dilated. Common bile duct is not seen with considerable bowel gas obscuring the portal region. The pancreas is also obscured. The right kidney measures 10 x 4.7 x 4.5 cm with no evidence of hydronephrosis. No renal masses are seen. There is no ascites. IMPRESSION: Limited study due to considerable ileus. 1. Hepatomegaly with hepatic steatosis. 2. Bile ducts are not dilated. Dictated by: Dictated on workstation # [id number]
[2016-11-29] MEDS ORDERED: ONDA8TAB9 PO (18:41)
--- NOTE | 2016-11-29 19:09 | Diagnostic Imaging Report ---
INDICATION: Nausea and vomiting. FINDINGS: The lungs are well aerated. No infiltrates are present. There is no free air under the diaphragm. There is gas in the stomach, small bowel, and colon without evidence of obstruction. There is very little stool within the colon. There is no organomegaly. No pathologic calcification. IMPRESSION: 1. Findings consistent with mild generalized adynamic ileus. No findings are seen at this time to indicate bowel obstruction. Dictated by: Dictated on workstation # [id number]
[2016-11-29 19:37] VITALS: BP 136/74
== END 2016-11-29 19:36 | disposition home or self-care (01) ==
LOC: EDUNIT# 16:11 → ER 16:13
DX: K52.9 Noninfective gastroenteritis and colitis, unspecified (principal); K56.7 Ileus, unspecified; F41.9 Anxiety disorder, unspecified; F32.9 Major depressive disorder, single episode, unspecified; Z87.448 Personal history of other diseases of urinary system
CPT/HCPCS: 36415; 74022; 76705; 80053; 81000; 83690; 85025; 96360

== ENCOUNTER 2017-02-28 16:16 | Emergency (ER) | payer MEDICAID ==
[~2017-02-28] VITALS: Ht 165.1 cm; Wt 102.1 kg
[~2017-02-28 16:16] MED LIST changes: +ONDA8TAB9 PO
[2017-02-28 17:10] VITALS: BP 193/110
[2017-03-01] MEDS ORDERED: HYDR-757 PO (16:34)
[2017-03-01] MEDS ORDERED: METO-352 PO (17:39)
== END 2017-02-28 18:22 | disposition left against medical advice (07) ==
LOC: EDUNIT# 16:16 → ER 16:18
DX: M54.5 Low back pain (principal); R20.2 Paresthesia of skin
CPT/HCPCS: 99281

== ENCOUNTER 2017-03-01 15:43 | Emergency (ER) | payer MEDICAID ==
[~2017-03-01] VITALS: Ht 165.1 cm; Wt 104.3 kg
--- OUTSIDE RECORDS SUMMARY | 2017-03-01 15:49 | XMS REPORT | Continuity of Care Document ---
Author Author [facility] Organization [facility] Address Unknown Phone Unavailable Allergies Active Description Code Type Severity Reaction Onset Reported/Identified Relationship to Patient Clinical Status Yes NKANo Known Allergies NKA Miscellaneous Allergy Unknown N/A 12/21/2005 Medications There is no data. Problems Date Dx Coded Attending Type Code Diagnosis Diagnosed By 08/11/2009 Ot 303.92 08/11/2009 Ot 571.1 08/11/2009 Ot 577.0 08/11/2009 Ot 599.0 [facility] Major Depressive Affective Disorder Recurrent Episode Unspecified Degree 10/01/2010 [facility] 305.00 ALCOHOL ABUSE UNSPEC 10/01/2010 [facility] 307.51 Bulimia Nervosa 10/01/2010 [facility] 296.30 Major Depressive Affective Disorder Recurrent Episode Unspecified Degree 10/01/2010 [facility] 305.00 ALCOHOL ABUSE UNSPEC 10/01/2010 [facility] 307.51 Bulimia Nervosa 10/01/2010 [facility] 296.30 Major Depressive Affective Disorder Recurrent Episode Unspecified Degree 10/01/2010 [facility] 305.00 ALCOHOL ABUSE UNSPEC 10/01/2010 [facility] 307.51 Bulimia Nervosa 10/01/2010 296.30 Major Depressive [...] ABUSE UNSPEC 10/01/2010 307.51 Bulimia Nervosa 10/01/2010 [facility], JAI R 296.30 Major Depressive Affective Disorder Recurrent Episode Unspecified Degree 10/01/2010 [facility], JAI R 305.00 ALCOHOL ABUSE UNSPEC 10/01/2010 [facility], JAI R 307.51 [facility]imia Nervosa [facility] 296.30 Major Depressive Affective Disorder Recurrent Episode Unspecified Degree 10/01[facility] R 305.00 ALCOHOL ABUSE UNSPEC 10/01/2010 [facility] R 307.51 Bulimia Nervosa 10/01/2010 [facility], JAI R 296.30 Major Depressive Affective Disorder Recurrent Episode Unspecified Degree 10/01[facility] 305.00 ALCOHOL ABUSE UNSPEC 10/01/2010 [facility] R 307.51 Bulimia Nervosa 10/01/2010 [facility], JAI R 296.30 Major Depressive Affective Disorder Recurrent Episode Unspecified Degree 10/01/2010 [facility], JAI R 305.00 ALCOHOL ABUSE UNSPEC 10/01/2010 [facility] 307.51 Bulimia Nervosa 10/01/2010 [facility], JAI R 296.30 Major Depressive Affective Disorder Recurrent Episode Unspecified Degree 10/01/2010 [facility] R 305.00 ALCOHOL ABUSE UNSPEC 10/01/2010 [facility] R 307.51 Bulimia Nervosa 10/01/2010 [facility] R 296.30 Major Depressive Affective Disorder Recurrent Episode Unspecified Degree 10/01/2010 [facility] R 305.00 ALCOHOL ABUSE UNSPEC 10/01/2010 [facility] R 307.51 Bulimia Nervosa 10/01/2010 [facility] R 296.30 Major Depressive Affective Disorder Recurrent Episode Unspecified Degree 10/01/2010 [facility] R 305.00 ALCOHOL ABUSE UNSPEC 10/01/2010 [facility] R 307.51 Bulimia Nervosa 10/01/2010 [facility], JAI R 296.30 Major Depressive Affective Disorder Recurrent Episode Unspecified Degree 10/01/2010 [facility] 305.00 ALCOHOL ABUSE UNSPEC 10/01/2010 [facility], JAI R 307.51 Bulimia Nervosa 10/01/2010 [facility], JAI R 296.30 Major Depressive Affective Disorder Recurrent Episode Unspecified Degree 10/01/2010 [facility], JAI R 305.00 ALCOHOL ABUSE UNSPEC 10/01/2010 [facility], JAI R 307.51 Bulimia Nervosa 10/01/2010 [facility], JAI R 296.30 Major Depressive Affective Disorder Recurrent Episode Unspecified Degree 10/01/2010 [facility], JAI R 305.00 ALCOHOL ABUSE UNSPEC 10/01/2010 [facility], JAI R 307.51 Bulimia Nervosa 10/01/2010 [facility], TERESA R 296.30 Major Depressive Affective Disorder Recurrent Episode Unspecified Degree 10/01/2010 [facility], TERESA R 305.00 ALCOHOL ABUSE UNSPEC 10/01/2010 [facility], TERESA R 307.51 Bulimia Nervosa 10/01/2010 CAROLYN CURATOR OF EDUCATIONLOKIVLADIMIR S 296.30 Major Depressive Affective Disorder Recurrent Episode Unspecified Degree 10/01/2010 [facility], VLADIMIR S 305.00 ALCOHOL ABUSE UNSPEC 10/01/2010 [facility], VLADIMIR S 307.51 Bulimia Nervosa 11/03/2010 [facility], JAI R 078.10 Viral Warts Unspecified 11/03/2010 [facility], JAI R 300.00 AN ANXIETY UNSPEC 11/03/2010 [facility], JAI R 311 DEPRESSIVE DISORDER NOS 11/03/2010 [facility], JAI R 592.9 Urinary Calculus Unspecified 11/03/2010 [facility], JAI R 599.0 Urinary Tract Infection Site Not Specified 11/03/2010 [facility], JAI R 796.2 Elevated Blood Pressure Reading Without Diagnosis Of Hypertension 11/03/2010 [facility], JAI R 078.10 Viral Warts Unspecified 11/03/2010 [facility], JAI R 300.00 AN ANXIETY UNSPEC 11/03/2010 [facility], JAI R 311 DEPRESSIVE DISORDER NOS 11/03/2010 [facility], JAI R 592.9 Urinary Calculus Unspecified 11/03/2010 [facility], JAI R 599.0 Urinary Tract Infection Site Not Specified 11/03/2010 [facility], JAI R 796.2 Elevated Blood Pressure Reading Without Diagnosis Of Hypertension 11/03/2010 [facility], JAI R 078.10 Viral Warts Unspecified 11/03/2010 [facility], JAI R 300.00 AN ANXIETY UNSPEC 11/03/2010 [facility], JAI R 311 DEPRESSIVE DISORDER NOS 11/03/2010 [facility], JAI R 592.9 Urinary Calculus Unspecified 11/03/2010 [facility], JAI R 599.0 Urinary Tract Infection Site Not Specified 11/03/2010 [facility], JAI R 796.2 Elevated Blood [...] Pressure Reading Without Diagnosis Of Hypertension 11/03/2010 [facility], JAI R 078.10 Viral Warts Unspecified 11/03/2010 [facility], JAI R 300.00 AN ANXIETY UNSPEC 11/03/2010 [facility], JAI R 311 DEPRESSIVE DISORDER NOS 11/03/2010 [facility] 592.9 Urinary Calculus Unspecified 11/03/2010 [facility], JAI R 599.0 Urinary Tract Infection Site Not Specified 11/03/2010 [facility] R 796.2 Elevated Blood Pressure Reading Without Diagnosis Of Hypertension 11/03/2010 [facility], JAI R 078.10 Viral Warts Unspecified 11/03/2010 [facility] 300.00 AN ANXIETY UNSPEC 11/03/2010 [facility] R 311 DEPRESSIVE DISORDER NOS 11/03/2010 [facility], JAI R 592.9 Urinary Calculus Unspecified 11/03/2010 [facility] R 599.0 Urinary Tract Infection Site Not Specified 11/03/2010 [facility], JAI R 796.2 Elevated Blood Pressure Reading Without Diagnosis Of Hypertension 11/03/2010 [facility], JAI R 078.10 Viral Warts Unspecified 11/03/2010 [facility], JAI R 300.00 AN ANXIETY UNSPEC 11/03/2010 [facility] R 311 DEPRESSIVE DISORDER NOS 11/03/2010 [facility], JAI R 592.9 Urinary Calculus Unspecified 11/03/2010 [facility] R 599.0 Urinary Tract Infection Site Not Specified 11/03/2010 [facility], JAI R 796.2 Elevated Blood Pressure Reading Without Diagnosis Of Hypertension 11/03/2010 [facility], JAI R 078.10 Viral Warts Unspecified 11/03/2010 [facility], JAI R 300.00 AN ANXIETY UNSPEC 11/03/2010 [facility] 311 DEPRESSIVE DISORDER NOS 11/03/2010 [facility], JAI R 592.9 Urinary Calculus Unspecified 11/03/2010 [facility] R 599.0 Urinary Tract Infection Site Not Specified 11/03/2010 [facility], JAI R 796.2 Elevated Blood Pressure Reading Without Diagnosis Of Hypertension 11/03/2010 [facility], JAI R 078.10 Viral Warts Unspecified 11/03/2010 [facility] R 300.00 AN ANXIETY UNSPEC [...] Urinary Tract Infection Site Not Specified 11/03/2010 [facility] R 796.2 Elevated Blood Pressure Reading Without Diagnosis Of Hypertension 11/03/2010 [facility] R 078.10 Viral Warts Unspecified 11/03/2010 [facility], JAI R 300.00 AN ANXIETY UNSPEC 11/03/2010 [facility], JAI R 311 DEPRESSIVE DISORDER NOS 11/03/2010 [facility] R 592.9 Urinary Calculus Unspecified 11/03/2010 [facility], JAI R 599.0 Urinary Tract Infection Site Not Specified 11/03/2010 [facility] R 796.2 Elevated Blood Pressure Reading Without Diagnosis Of Hypertension 11/03/2010 [facility], JAI R 078.10 Viral Warts Unspecified 11/03/2010 [facility], JAI R 300.00 AN ANXIETY UNSPEC 11/03/2010 [facility], JAI R 311 DEPRESSIVE DISORDER NOS 11/03/2010 [facility] R 592.9 Urinary Calculus Unspecified 11/03/2010 [facility], JAI R 599.0 Urinary Tract Infection Site Not Specified 11/03/2010 [facility] R 796.2 Elevated Blood Pressure Reading Without Diagnosis Of Hypertension 11/03/2010 [facility], JAI R 078.10 Viral Warts Unspecified 11/03/2010 [facility], JAI R 300.00 AN ANXIETY UNSPEC 11/03/2010 [facility], JAI R 311 DEPRESSIVE DISORDER NOS 11/03/2010 [facility], JAI R 592.9 Urinary Calculus Unspecified 11/03/2010 [facility], JAI R 599.0 Urinary Tract Infection Site Not Specified 11/03/2010 [facility], JAI R 796.2 Elevated Blood Pressure Reading Without Diagnosis Of Hypertension 11/03/2010 [facility], JAI R 078.10 Viral Warts Unspecified 11/03/2010 [facility], JAI R 300.00 AN ANXIETY UNSPEC 11/03/2010 [facility], JAI R 311 DEPRESSIVE DISORDER NOS 11/03/2010 [facility], JAI R 592.9 Urinary Calculus Unspecified 11/03/2010 [facility], JAI R 599.0 Urinary Tract Infection Site Not Specified 11/03/2010 [facility], JAI R 796.2 Elevated Blood Pressure Reading Without Diagnosis Of Hypertension 11/03/2010 JESUS CURATOR OF EDUCATIONGISELLEIA R 078.10 Viral Warts Unspecified 11/03/2010 JESUS WHITTINGTONNPEGGYTERESA R 300.00 AN ANXIETY UNSPEC 11/03/2010 PEGGY LEE APRNRICIA R 311 DEPRESSIVE DISORDER NOS 11/03/2010 JESUS WHITTINGTONN TERESA R 592.9 Urinary Calculus Unspecified 11/03/2010 J[facility] TERESA R 599.0 Urinary Tract Infection Site Not Specified 11/03/2010 GISELLE LEE APRNIA R 796.2 Elevated Blood Pressure Reading Without Diagnosis Of Hypertension 11/03/2010 ADRIANA LEON APRNA S 078.10 Viral Warts Unspecified 11/03/2010 LOIK LEON APRNNDA S 300.00 AN ANXIETY UNSPEC 11/03/2010 CAROLYN ABEBE VLADIMIR S 311 DEPRESSIVE DISORDER NOS 11/03/2010 CAROLYN [facility], VLADIMIR S 592.9 Urinary Calculus Unspecified 11/03/2010 [facility], VLADIMIR S 599.0 Urinary Tract Infection Site Not Specified 11/03/2010 CAROLYN [facility]N, VLADIMIR S 796.2 Elevated Blood Pressure Reading Without Diagnosis Of Hypertension 01/20/2011 [facility], JAI R 401.9 Unspecified Essential Hypertension 01/20/2011 [facility], JAI R 401.9 Unspecified Essential Hypertension 01/20/2011 [facility], JAI R 401.9 Unspecified Essential [...] R 401.9 Unspecified Essential Hypertension 01/20/2011 [facility], VLADIMIR S 401.9 Unspecified Essential Hypertension 01/28/2011 [facility] [...] JAI R 401.1 BENIGN ESSENTIAL HYPERTENSION 01/28/2011 [facility], JAI R 401.1 BENIGN ESSENTIAL HYPERTENSION [...] CS, JAI R 786.2 COUGH 03/03/2011 [facility], JAI R 786.2 COUGH 03/03/2011 [facility], JAI R 786.2 COUGH 03/03/2011 [facility], JAI R 786.2 COUGH 03/03/2011 [facility], JAI R 786.2 COUGH 03/03/2011 [facility], JAI R 786.2 COUGH 03/03/2011 [facility], JAI R 786.2 COUGH 03/03/2011 TERESA LEE APRN R 786.2 COUGH 03/03/2011 VLADIMIR LEON APRN S 786.2 COUGH 08/05/2011 [facility], JAI R 301.6 PD DEPENDENT 08/05/2011 [facility], JAI R 301.6 PD DEPENDENT 08/05/2011 [facility], JAI R 301.6 PD DEPENDENT 08/05/2011 301.6 PD DEPENDENT 08/05/2011 301.6 PD DEPENDENT 08/05/2011 301.6 PD DEPENDENT 08/05/2011 301.6 PD DEPENDENT 08/05/2011 [facility], JAI R 301.6 PD DEPENDENT 08/05/2011 SARTHAK [...] JAI R 301.6 PD DEPENDENT 08/05/2011 JESUS ABEBE, TERESA R 301.6 PD DEPENDENT 08/05/2011 ADRIANA LEON APRNA S 301.6 PD DEPENDENT 12/10/2011 Ot 620.2 OVARIAN CYST NEC/NOS 12/10/2011 Ot 789.03 ABDOMINAL PAIN, RIGHT LOWER QUADRANT 02/10/2012 [facility], AJI R 034.0 STREP THROAT 02/10/2012 034.0 STREP [...] LSCS, JAI R 034.0 STREP THROAT 02/10/2012 GISELLE LEE APRNIA R 034.0 STREP THROAT 02/10/2012 LOKI LEON APRNNDA S 034.0 STREP THROAT 08/03/2012 GEOVANNA PANDEY DO Ot 300.00 ANXIETY STATE NOS 08/03/2012 GEOVANNA PANDEY DO Ot 311 DEPRESSIVE DISORDER NEC 08/03/2012 GEOVANNA PANDEY DO Ot 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 08/03/2012 GEOVANNA PANDEY DO Ot 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 08/03/2012 GEOVANNA PANDEY DO Ot V06.4 [id number] 08/03/2012 GEOVANNA PANDEY DO Ot V27.0 DELIVER-SINGLE LIVEBORN 09/11/2012 [facility], JAI R 462 ACUTE PHARYNGITIS 09/11/2012 [facility], JAI R 462 ACUTE PHARYNGITIS 09/11/2012 [facility], JAI R 462 ACUTE PHARYNGITIS 09/11/2012 [facility], JAI R 462 ACUTE PHARYNGITIS 09/11/2012 [facility], JAI R 462 ACUTE PHARYNGITIS 09/11/2012 [facility], JAI R 462 ACUTE PHARYNGITIS 09/11/2012 [facility], JAI R 462 ACUTE PHARYNGITIS 09/11/2012 [facility], JAI R 462 ACUTE PHARYNGITIS 09/11/2012 [facility], JAI R 462 ACUTE PHARYNGITIS 09/11/2012 [facility], JAI R 462 ACUTE PHARYNGITIS 09/11/2012 TERESA LEE APRN R 462 ACUTE PHARYNGITIS 09/11/2012 VLADIMIR LEON APRN S 462 ACUTE PHARYNGITIS 05/22/2013 ELBA HOLLIS, IBETH Kowalski Ot 620.2 OVARIAN CYST NEC/NOS 05/22/2013 IBETH ARREOLA MD Ot 789.09 ABDOMINAL PAIN, OTHER SPECIFIED SITE [...] EXAM - ROUTINE H&P 06/04/2014 VLADIMIR LEON GYROSCOPE TECHNICIAN Ot 305.00 06/04/2014 VLADIMIR LEON GYROSCOPE TECHNICIAN Ot 780.79 06/04/2014 VLADIMIR LEON GYROSCOPE TECHNICIAN Ot 789.00 07/18/2014 VLADIMIR LEONP Ot 305.00 07/18/2014 VLADIMIR LEON GYROSCOPE TECHNICIAN Ot 780.79 07/18/2014 VLADIMIR LEON GYROSCOPE TECHNICIAN Ot 789.00 05/26/2015 VLADIMIR LEON GYROSCOPE TECHNICIAN Ot 305.00 ALCOHOL ABUSE-UNSPEC 05/26/2015 VLADIMIR LEON GYROSCOPE TECHNICIAN Ot 780.79 OTH MALAISE FATIGUE 05/26/2015 VLADIMIR LEON GYROSCOPE TECHNICIAN Ot 789.00 ABDOMINAL PAIN, UNSPECIFIED SITE 07/13/2015 VLADIMIR LEON GYROSCOPE TECHNICIAN Ot 305.00 ALCOHOL ABUSE-UNSPEC 07/13/2015 VLADIMIR LEON GYROSCOPE TECHNICIAN Ot 780.79 OTH MALAISE FATIGUE 07/13/2015 VLADIMIR LEON GYROSCOPE TECHNICIAN Ot 789.00 ABDOMINAL PAIN, UNSPECIFIED SITE 07/14/2015 VLADIMIR LEON GYROSCOPE TECHNICIAN Ot 305.00 ALCOHOL ABUSE-UNSPEC 07/14/2015 VLADIMIR LEON GYROSCOPE TECHNICIAN Ot 780.79 OTH MALAISE FATIGUE 07/14/2015 VLADIMIR LEONP Ot 789.00 ABDOMINAL PAIN, UNSPECIFIED SITE 12/15/2015 VLADIMIR LEON GYROSCOPE TECHNICIAN Ot 305.00 ALCOHOL ABUSE-UNSPEC 12/15/2015 VLADIMIR LEON GYROSCOPE TECHNICIAN Ot 780.79 OTH MALAISE FATIGUE 12/15/2015 VLADIMIR LEON GYROSCOPE TECHNICIAN Ot 789.00 ABDOMINAL PAIN, UNSPECIFIED SITE 12/15/2015 GREGORIA OQUENDO CURATOR OF EDUCATION Ot F17.210 NICOTINE DEPENDENCE, CIGARETTES, UNCOMPL 12/15/2015 GREGORIA OQUENDO CURATOR OF EDUCATION Ot S93.401A SPRAIN OF UNSPECIFIED LIGAMENT OF RIGHT 12/15/2015 GREGORIA OQUENDO CURATOR OF EDUCATION Ot S99.921A UNSPECIFIED INJURY OF RIGHT FOOT, [...] Y99.8 OTHER EXTERNAL CAUSE STATUS 12/25/2015 VLADIMIR LEONP Ot 305.00 ALCOHOL ABUSE-UNSPEC 12/25/2015 VLADIMIR LEONP Ot 780.79 OTH MALAISE FATIGUE 12/25/2015 VLADIMIR LEON GYROSCOPE TECHNICIAN Ot 789.00 ABDOMINAL PAIN, UNSPECIFIED SITE 02/08/2016 VLADIMIR LEON GYROSCOPE TECHNICIAN Ot 305.00 ALCOHOL ABUSE-UNSPEC 02/08/2016 VLADIMIR LEONP Ot 780.79 OTH MALAISE FATIGUE 02/08/2016 VLADIMIR LEONP Ot 789.00 ABDOMINAL PAIN, UNSPECIFIED SITE 11/29/2016 VLADIMIR LEON GYROSCOPE TECHNICIAN Ot 305.00 ALCOHOL ABUSE-UNSPEC 11/29/2016 VLADIMIR LEON GYROSCOPE TECHNICIAN Ot 780.79 OTH MALAISE FATIGUE 11/29/2016 VLADIMIR LEON GYROSCOPE TECHNICIAN Ot 789.00 ABDOMINAL PAIN, UNSPECIFIED SITE 11/29/2016 GREGORIA OQUENDO APRN Ot F32.9 MAJOR DEPRESSIVE DISORDER, SINGLE EPISOD 11/29/2016 GREGORIA OQUENDO CURATOR OF EDUCATION Ot F41.9 ANXIETY DISORDER, UNSPECIFIED 11/29/2016 GREGORIA OQUENDO CURATOR OF EDUCATION Ot K52.9 NONINFECTIVE GASTROENTERITIS AND COLITIS 11/29/2016 GREGORIA OQUENDO CURATOR OF EDUCATION Ot K56.7 ILEUS, UNSPECIFIED 11/29/2016 GREGORIA OQUENDO CURATOR OF EDUCATION Ot R10.13 EPIGASTRIC PAIN 11/29/2016 GREGORIA OQUENDO CURATOR OF EDUCATION Ot Z87.448 PERSONAL HISTORY OF OTHER DISEASES OF UR 12/01/2016 GREGORIA OQUENDO CURATOR OF EDUCATION Ot F32.9 MAJOR DEPRESSIVE DISORDER, SINGLE EPISOD 12/01/2016 GREGORIA OQUENDO APRN Ot F41.9 ANXIETY DISORDER, UNSPECIFIED 12/01/2016 GREGORIA OQUENDO APRN Ot K52.9 NONINFECTIVE GASTROENTERITIS AND COLITIS 12/01/2016 GREGORIA OQUENDO CURATOR OF EDUCATION Ot K56.7 ILEUS, UNSPECIFIED 12/01/2016 GREGORIA OQUENDO CURATOR OF EDUCATION Ot R10.13 EPIGASTRIC PAIN 12/01/2016 GREGORIA OQUENDO CURATOR OF EDUCATION Ot Z87.448 PERSONAL HISTORY OF OTHER DISEASES OF UR Procedures Code [place] [address] INDIV PSYTX 45/50 MIN 12/01/2011 60626 INDIV PSYTX 45/50 MIN 12/16/2011 51978 INDIV PSYTX 45/50 MIN 01/21/2012 43075 PSYTX PT&/FAMILY 45 MINUTES 02/10/2012 68264 PSYTX PT&/FAMILY 45 MINUTES 03/16/2012 41965 PSYTX PT&/FAMILY 45 MINUTES 04/06/2012 77201 PSYTX PT&/FAMILY 45 MINUTES 05/19/2012 32861 PSYTX PT&/FAMILY 45 MINUTES 07/06/2012 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 08/01/2012 73.6 EPISIOTOMY 08/01/2012 63028 PSYTX PT&/FAMILY 45 MINUTES 10/18/2012 47394 PSYTX PT&/FAMILY 45 MINUTES 12/01/2012 94782 PSYTX PT&/FAMILY 45 MINUTES 02/01/2013 00075 PSYTX PT&/FAMILY 45 MINUTES 03/13/2013 17719 PSYTX PT&/FAMILY 45 MINUTES 03/28/2013 06900 PSYTX PT&/FAMILY 45 MINUTES 05/10/2013 48082 PSYTX PT&/FAMILY 45 MINUTES 05/24/2013 00524 PSYTX PT&/FAMILY 45 MINUTES 06/22/2013 97793 PSYTX PT&/FAMILY 45 MINUTES 07/17/2013 71179 PSYTX PT&/FAMILY 45 MINUTES 07/31/2013 33411 ROUTINE VENIPUNCTURE 05/29/2014 54490 US ABDOMINAL ULTRASOUND, COMPLETE 05/29/2014 31153 CBC 05/29/2014 [id number] GFR CALC (RESULT ONLY) 05/29/2014 48756 CMP 05/29/2014 15293 LIPID PANEL 05/29/2014 62059 LIPASE 05/29/2014 77531 TSH 05/29/2014 Results Test Result Range Complete blood count (CBC) with automated white blood cell (WBC) differential - 11/29/16 17:30 Blood leukocytes automated count (number/volume) 11.5 10*3/uL 4.3-11.0 Blood erythrocytes automated count (number/volume) 5.36 10*6/uL 4.35-5.85 Venous blood hemoglobin measurement (mass/volume) 15.3 g/dL 11.5-16.0 Blood hematocrit (volume fraction) 46 % 35-52 Automated erythrocyte mean corpuscular volume 86 [foz_us] 80-99 Automated erythrocyte mean corpuscular hemoglobin (mass per erythrocyte) 29 pg 25-34 Automated erythrocyte mean corpuscular hemoglobin concentration measurement ( mass/volume) 33 g/dL 32-36 Automated erythrocyte distribution width ratio 13.6 % 10.0-14.5 Automated blood platelet count (count/volume) 306 10*3/uL 130-400 Automated blood platelet mean volume measurement 9.6 [foz_us] 7.4-10.4 Automated blood neutrophils/100 leukocytes 66 % 42-75 Automated blood lymphocytes/100 leukocytes 23 % 12-44 Blood monocytes/100 leukocytes 7 % 0-12 Automated blood eosinophils/100 leukocytes 4 % 0-10 Automated blood basophils/100 leukocytes 0 % 0-10 Blood neutrophils automated count (number/volume) 7.6 10*3 1.8-7.8 Blood lymphocytes automated count (number/volume) 2.7 10*3 1.0-4.0 Blood monocytes automated count (number/volume) 0.8 10*3 0.0-1.0 Automated eosinophil count 0.4 10*3/uL 0.0-0.3 Automated blood basophil count (count/volume) 0.0 10*3/uL 0.0-0.1 Comprehensive metabolic panel - 11/29/16 17:30 Serum or plasma sodium measurement (moles/volume) 138 mmol/L 135-145 Serum or plasma potassium measurement (moles/volume) 3.8 mmol/L 3.6-5.0 Serum or plasma chloride measurement (moles/volume) 108 mmol/L 98-107 Carbon dioxide 23 mmol/L 21-32 Serum or plasma anion gap determination (moles/volume) 7 mmol/L 5-14 Serum or plasma urea nitrogen measurement (mass/volume) 9 mg/dL 7-18 Serum or plasma creatinine measurement (mass/volume) 0.83 mg/dL 0.60-1.30 Serum or plasma urea nitrogen/creatinine mass ratio 11 NRG Serum or plasma creatinine measurement with calculation of estimated glomerular filtration rate > NRG Serum or plasma glucose measurement (mass/volume) 104 mg/dL 70-105 Serum or plasma calcium measurement (mass/volume) 9.4 mg/dL 8.5-10.1 Serum or plasma total bilirubin measurement (mass/volume) 0.5 mg/dL 0.1-1.0 Serum or plasma alkaline phosphatase measurement (enzymatic activity/volume) 92 U/L 40-136 Serum or plasma aspartate aminotransferase measurement (enzymatic activity/ volume) 25 U/L 5-34 Serum or plasma alanine aminotransferase measurement (enzymatic activity/volume ) 26 U/L 0-55 Serum or plasma protein measurement (mass/volume) 7.7 g/dL 6.4-8.2 Serum or plasma albumin measurement (mass/volume) 4.1 g/dL 3.2-4.5 Lipase - 11/29/16 17:30 Lipase 12 U/L 8-78 Complete urinalysis with reflex to culture - 11/29/16 17:34 Urine color determination YELLOW NRG Urine clarity determination VERY CLOUDY NRG Urine pH measurement by test strip 5 5-9 Specific gravity of urine by test strip 1.020 1.016- 1.022 Urine protein assay by test strip, semi-quantitative 4+ NEGATIVE Urine glucose detection by automated test strip NEGATIVE NEGATIVE Erythrocytes detection in urine sediment by light microscopy 4+ NEGATIVE Urine ketones detection by automated test strip NEGATIVE NEGATIVE Urine nitrite detection by test strip NEGATIVE NEGATIVE Urine total bilirubin detection by test strip NEGATIVE NEGATIVE Urine urobilinogen measurement by automated test strip (mass/volume) NORMAL NORMAL Urine leukocyte esterase detection by dipstick NEGATIVE NEGATIVE Automated urine sediment erythrocyte count by microscopy (number/high power field) [HPF] NRG Automated urine sediment leukocyte count by microscopy (number/high power field ) [HPF] NRG Bacteria detection in urine sediment by light microscopy LARGE NRG Squamous epithelial cells detection in urine sediment by light microscopy 10-25 NRG Crystals detection in urine sediment by light microscopy NONE NRG Casts detection in urine sediment by light microscopy NONE NRG Mucus detection in urine sediment by light microscopy NEGATIVE NRG Complete urinalysis with reflex to culture NO NRG Encounters ACCT No. Visit Date/Time Discharge Status Pt. Type Provider Facility Loc./Unit Complaint [id number] 11/29/2016 16:13:00 11/29/2016 19:36:00 DIS Emergency GREGORIA OQUENDO APRN [facility] ER DIARRHEA/STOMACH PAIN [id number] 12/15/2015 10:24:00 12/15/2015 12:49:00 DIS Emergency GREGORIA OQUENDO APRN [facility] ER RIGHT FOOT INJURY [id number] 05/29/2014 07:28:00 05/29/2014 23:59:59 CLS Outpatient VLADIMIR LEON [facility] RAD ABD PAIN,FATIGUE [id number] 05/22/2013 16:27:00 05/22/2013 19:09:00 DIS Emergency IBETH ARREOLA MD [facility] ER CRAMPING [id number] 08/01/2012 07:25:00 08/03/2012 12:30:00 DIS Inpatient GEOVANNA PANDEY DO [facility] WS INDUCTION [id number] 06/04/2014 10:37:00 Document Registration [id number] 06/04/2014 10:37:00 Document Registration [id number] 05/29/2014 08:23:00 05/29/2014 23:59:59 CLS Outpatient VLADIMIR LEON APRN [id number] 08/13/2013 13:55:00 08/13/2013 23:59:59 CLS Outpatient TERESA LEE APRN [id number] 07/31/2013 16:18:00 07/31/2013 23:59:59 CLS Outpatient SARTHAK LSCS, JAI Cardenas [id number] 07/17/2013 16:58:00 07/17/2013 23:59:59 CLS Outpatient SARTHAK LSCS, JAI Cardenas [id number] 06/22/2013 15:06:00 06/22/2013 23:59:59 CLS Outpatient SARTHAK LSCS, JAI Cardenas [id number] 05/23/2013 15:05:00 05/23/2013 23:59:59 CLS Outpatient SARTHAK LSCS, JAI R [id number] 05/09/2013 15:08:00 05/09/2013 23:59:59 CLS Outpatient SARTHAK LSCS, JAI Cardenas [id number] 03/28/2013 15:25:00 03/28/2013 23:59:59 CLS Outpatient SARTAHK LSCS, JAI Cardenas [id number] 03/09/2013 14:01:00 03/09/2013 23:59:59 CLS Outpatient SARTHAK LSCS, JAI Cardenas [id number] 02/01/2013 15:06:00 02/01/2013 23:59:59 CLS Outpatient SARTHAK LSCS, JAI Cardenas [id number] 11/30/2012 16:10:00 11/30/2012 23:59:59 CLS Outpatient SARTHAK LSCS, JAI Cardenas [id number] 10/18/2012 15:07:00 10/18/2012 23:59:59 CLS Outpatient SARTHAK LSCS, JAI Cardenas [id number] 04/06/2012 13:04:00 04/06/2012 23:59:59 CLS Outpatient [id number] 03/16/2012 16:05:00 03/16/2012 23:59:59 CLS Outpatient [id number] 02/10/2012 15:02:00 02/10/2012 23:59:59 CLS Outpatient SARTHAK LSCS, JAI Cardenas [id number] 01/13/2012 15:05:00 01/13/2012 23:59:59 CLS Outpatient SARTHAK LSCS, JAI Cardenas [id number] 12/01/2011 14:05:00 12/01/2011 23:59:59 [facility] Outpatient JAI ROSE [id number] 07/04/2012 15:05:00 Document Registration [id number] 05/19/2012 15:04:00 Document Registration
[2017-03-01] MEDS ORDERED: KETOROLAC 60 MG/2 ML VIAL IM ONE (16:30)
[2017-03-01] MEDS ORDERED: morphine INJ 10 MG/ML 1ML (SYR OR VIAL) IJ ONE (16:30)
[2017-03-01] MEDS ORDERED: HYDR-757 PO (16:34)
--- NOTE | 2017-03-01 16:34 | ED Back Pain ---
General Chief Complaint: Back Problems Stated Complaint: BACK PAIN Nursing Triage Note: PT REPORTS BACK PAIN STARTING APPROX 2 WEEKS AGO. PT WAS SEEN IN [facility] TODAY, AND PRESCRIBED STERIODS, UNABLE TO GET IN TO PCP UNTIL LATE MARCH. CAME IN TODAY D/T UNCONTROLLED PAIN. Nursing Sepsis Screen: No Definite Risk Source of Information: Patient Exam Limitations: No Limitations History of Present Illness Date Seen by Provider: Mar 01, 2017 Time Seen by Provider: 16:30 Initial Comments To ER with complaints of severe low back pain. She was seen in [facility] earlier today and given a prescription for steroids. She has not yet started this. She called her primary care provider to make an appointment for follow-up and cannot be seen until March. She's only had these symptoms once before. This particular episode began about 2 weeks ago and has been getting worse. Pain is in the left low back radiating down the left posterior thigh left leg causing the left toes to tingle. She denies any personal history of cancer, any fevers or chills, any trauma preceding this, denies any IV drug use, loss of bowel or bladder control or saddle anesthesia or hypoesthesia. Location: Lumbar Spine, Paraspinous Muscles Timing/Duration: 2-3 Days Severity: Moderate Associated Symptoms: No fever Allergies and Home Medications Allergies Coded Allergies: NKANo Known Allergies (Verified Allergy, Unknown, 12/21/05) Home Medications Alprazolam 1 Mg Tablet, 1 MG PO NEEDED, (Reported) Hydrocodone/Acetaminophen 1 Each Tablet, 1 EACH PO Q4H PRN for PAIN-SEVERE, #20 Prescribed by: GREGORIA OQUENDO on 03/01/17 1634 Ondansetron 8 Mg Tab.rapdis, 8 MG PO Q6H PRN for NAUSEA/VOMITING-1ST LINE, #14 Prescribed by: GREGORIA OQUENDO on 11/29/16 1841 Oxycodone HCl/Acetaminophen 1 Each Tablet, 1 EACH PO Q4H PRN for PAIN, #10 Prescribed by: GREGORIA OQUENDO on 12/15/15 1242 Sertraline Hcl 100 Mg Tablet, 1 TAB PO DAILY, #30 Prescribed by: GEOVANNA PANDEY on 08/03/12 0906 Constitutional: see HPI, No chills, No fever EENTM: see HPI Respiratory: no symptoms reported Cardiovascular: no symptoms reported Genitourinary: no symptoms reported Musculoskeletal: see HPI, back pain Skin: no symptoms reported Past Hqdjcvy-Ctaccd-Vdrpcd Hx Patient Social History Recent Foreign Travel: No Contact w/Someone Who Travel: No Recent Infectious Disease Expo: No Recent Hopitalizations: No Physical Abuse: No Sexual Abuse: No Mistreated: No Fear: No Immunizations Up To Date Tetanus Booster (TDap): Unknown Seasonal Allergies Seasonal Allergies: Yes Surgeries History of Surgeries: No Respiratory History of Respiratory Disorde: No Cardiovascular History of Cardiac Disorders: No Neurological History of Neurological Disord: No Reproductive System : No Hx Reproductive Disorders: No Genitourinary Genitourinary Disorders: Bladder Infection Gastrointestinal History of Gastrointestinal Di: No Musculoskeletal History of Musculoskeletal Dis: No Endocrine History of Endocrine Disorders: No Cancer History of Cancer: No Psychosocial History of Psychiatric Problem: Yes Behavioral Health Disorders: Anxiety, Depression Suicide Risk Score: 1 Integumentary History of Skin or Integumenta: No Blood Transfusions History of Blood Disorders: No Adverse Reaction to a Blood Tr: No Physical Exam Vital Signs Vital Sign - Last 12Hours 03/01/17 16:20 Temp 96.7 Pulse 87 Resp 18 B/P (MAP) 146/106 (119) Pulse Ox 98 O2 Delivery Room Air Capillary Refill : Less Than 3 Seconds General Appearance: No Apparent Distress HEENT: PERRL/EOMI, TMs Normal Neck: Full Range of Motion, Normal Inspection Cardiovascular: Regular Rate, Rhythm, Normal Peripheral Pulses Respiratory: No Accessory Muscle Use, No Respiratory Distress Gastrointestinal: Non Tender, Soft Extremity: Normal Capillary Refill Neurologic/Psychiatric: Alert, Oriented x3 Skin: Normal Color, Warm/Dry Progress/Results/Core Measures Results/Orders My Orders Orders - GREGORIA OQUENDO APRN Ketorolac Injection (Toradol Injection) (03/01/17 16:30) Morphine Injection (Morphine Injection (03/01/17 16:30) Ondansetron Oral Dissolve Tab (Zofran (03/01/17 17:30) Ondansetron Oral Dissolve Tab (Zofran (03/01/17 17:16) Clonidine Tablet (Catapres Tablet) (03/01/17 17:45) Medications Given in ED Current Medications Medications Dose Ordered Sig/Teri Route Start Time Stop Time Status Last Admin Dose Admin Ketorolac Tromethamine 60 mg ONCE ONCE IM 03/01/17 16:30 03/01/17 16:31 DC 03/01/17 16:53 60 MG Morphine Sulfate 8 mg ONCE ONCE IJ 03/01/17 16:30 03/01/17 16:31 DC 03/01/17 16:53 8 MG Vital Signs/I&O Vital Sign - Last 12Hours 03/01/17 16:20 Temp 96.7 Pulse 87 Resp 18 B/P (MAP) 146/106 (119) Pulse Ox 98 O2 Delivery Room Air Blood Pressure Mean: 119 Departure Impression Impression: Primary Impression: Lumbar radiculopathy Disposition: HOME, SELF-CARE Condition: Stable Departure-Patient Inst. Decision time for Depature: 16:32 Referrals: [facility] (PCP/Family) Primary Care Physician Patient Instructions: Radiculopathy (DC) Add. Discharge Instructions: 1. Return to ER for any concerns such as high fevers, loss of bowel or bladder control, loss of sensation of your genitals. 2. Follow-up with your doctor as scheduled 3. Start your steroids as soon as you get home Scripts Metoprolol Succinate (Toprol Xl) 50 Mg Tab.er.24h 50 MG PO DAILY, #14 TAB Prov: GREGORIA OQUENDO [employer] 03/01/17 Hydrocodone/Acetaminophen ([place] 5-325 Tablet) 1 Each Tablet 1 EACH PO Q4H Y for PAIN-SEVERE, #20 TAB Prov: GREGORIA OQUENDO APRN 03/01/17 GREGORIA OQUENDO APRN Mar 01, 2017 16:34
[2017-03-01] MEDS ORDERED: ONDANSETRON 4 MG (ZOFRAN) ORAL DISSOLVE TAB ONE (17:16)
[2017-03-01] MEDS ORDERED: ONDANSETRON 4 MG (ZOFRAN) ORAL DISSOLVE TAB PO ONE (17:30)
[2017-03-01] MEDS ORDERED: cloNIDine 0.1 MG (CATAPRES) TAB ONE (17:39)
[2017-03-01] MEDS ORDERED: METO-352 PO (17:39)
[2017-03-01 17:43] VITALS: BP 146/106
[2017-03-01] MEDS ORDERED: cloNIDine 0.1 MG (CATAPRES) TAB PO ONE (17:45)
== END 2017-03-01 17:43 | disposition home or self-care (01) ==
LOC: ER 15:43
DX: M54.16 Radiculopathy, lumbar region (principal); F41.9 Anxiety disorder, unspecified; F32.9 Major depressive disorder, single episode, unspecified
CPT/HCPCS: 96372; 99284

== ENCOUNTER 2017-03-10 12:42 | Emergency (ER) | payer MEDICAID ==
[~2017-03-10] VITALS: Ht 165.1 cm; Wt 104.3 kg
[~2017-03-10 12:42] MED LIST changes: +HYDR-757 PO; +METO-352 PO
--- OUTSIDE RECORDS SUMMARY | 2017-03-10 12:49 | XMS REPORT | Continuity of Care Document ---
Author Author [facility] Organization [facility] Address Unknown Phone Unavailable Allergies Active Description Code Type Severity Reaction Onset Reported/Identified Relationship to Patient Clinical Status Yes NKANo Known Allergies NKA Miscellaneous Allergy Unknown N/A 12/21/2005 Medications There is no data. Problems Date Dx Coded Attending Type Code Diagnosis Diagnosed By 08/11/2009 Ot 303.92 08/11/2009 Ot 571.1 08/11/2009 Ot 577.0 08/11/2009 [facility] 599.0 [facility] Major Depressive Affective Disorder Recurrent Episode Unspecified Degree 10/01/2010 [facility] 305.00 ALCOHOL ABUSE UNSPEC 10/01/2010 [facility] 307.51 Bulimia Nervosa 10/01/2010 [facility] 296.30 Major Depressive Affective Disorder Recurrent Episode Unspecified Degree 10/01/2010 [facility] 305.00 ALCOHOL ABUSE UNSPEC 10/01/2010 [facility] 307.51 Bulimia Nervosa 10/01/2010 [facility] 296.30 Major Depressive Affective Disorder Recurrent Episode Unspecified Degree 10/01/2010 [facility] 305.00 ALCOHOL ABUSE UNSPEC 10/01/2010 [facility] 307.51 Bulimia Nervosa 10/01/2010 296.30 Major Depressive [...] ABUSE UNSPEC 10/01/2010 307.51 Bulimia Nervosa 10/01/2010 [facility], JAI R 296.30 Major Depressive Affective Disorder Recurrent Episode Unspecified Degree 10/01/2010 [facility], JAI R 305.00 ALCOHOL ABUSE UNSPEC 10/01/2010 [facility], JAI R 307.51 Bulimia Nervosa 10/01[facility]2010 [facility] 296.30 Major Depressive Affective Disorder Recurrent Episode Unspecified Degree 10/01/2010 [facility] R 305.00 ALCOHOL ABUSE UNSPEC 10/01/2010 [facility] R 307.51 Bulimia Nervosa 10/01/2010 [facility], JAI R 296.30 Major Depressive Affective Disorder Recurrent Episode Unspecified Degree 10/01/2010 [facility] R 305.00 ALCOHOL ABUSE UNSPEC 10/01/2010 [facility] R 307.51 Bulimia Nervosa 10/01/2010 [facility], JAI R 296.30 Major Depressive Affective Disorder Recurrent Episode Unspecified Degree 10/01/2010 [facility], JAI R 305.00 ALCOHOL ABUSE UNSPEC 10/01/2010 [facility] R 307.51 Bulimia Nervosa 10/01/2010 [facility], JAI R 296.30 Major Depressive Affective Disorder Recurrent Episode Unspecified Degree 10/01/2010 [facility] R 305.00 ALCOHOL ABUSE UNSPEC 10/01/2010 [facility] R 307.51 Bulimia Nervosa 10/01/2010 [facility] R 296.30 Major Depressive Affective Disorder Recurrent Episode Unspecified Degree 10/01/2010 [facility] R 305.00 ALCOHOL ABUSE UNSPEC 10/01/2010 [facility] R 307.51 Bulimia Nervosa 10/01/2010 [facility] R 296.30 Major Depressive Affective Disorder Recurrent Episode Unspecified Degree 10/01/2010 [facility] R 305.00 ALCOHOL ABUSE UNSPEC 10/01/2010 [facility] R 307.51 Bulimia Nervosa 10/01/2010 [facility], JAI R 296.30 Major Depressive Affective Disorder Recurrent Episode Unspecified Degree 10/01/2010 [facility] R 305.00 ALCOHOL ABUSE UNSPEC 10/01/2010 [facility], JAI R 307.51 Bulimia Nervosa 10/01/2010 [facility], JAI R 296.30 Major Depressive Affective Disorder Recurrent Episode Unspecified Degree 10/01/2010 [facility], JAI R 305.00 ALCOHOL ABUSE UNSPEC 10/01/2010 [facility], JAI R 307.51 Bulimia Nervosa 10/01/2010 [facility], JAI R 296.30 Major Depressive Affective Disorder Recurrent Episode Unspecified Degree 10/01/2010 [facility], JAI R 305.00 ALCOHOL ABUSE UNSPEC 10/01/2010 [facility], JAI R 307.51 Bulimia Nervosa 10/01/2010 LEE SCOREKEEPER, TERESA R 296.30 Major Depressive Affective Disorder Recurrent Episode Unspecified Degree 10/01/2010 JESUS SCOREKEEPER, TERESA R 305.00 ALCOHOL ABUSE UNSPEC 10/01/2010 JESUS SCOREKEEPER, TERESA R 307.51 Bulimia Nervosa 10/01/2010 CAROLYN SCOREKEEPERLOKIVLADIMIR S 296.30 Major Depressive Affective Disorder Recurrent Episode Unspecified Degree 10/01/2010 CAROLYN SCOREKEEPER, VLADIMIR S 305.00 ALCOHOL ABUSE UNSPEC 10/01/2010 CAROLYN SCOREKEEPER, VLADIMIR S 307.51 Bulimia Nervosa 11/03/2010 [facility], JAI R 078.10 Viral Warts Unspecified 11/03/2010 [facility], JAI R 300.00 AN ANXIETY UNSPEC 11/03/2010 [facility], JAI R 311 DEPRESSIVE DISORDER NOS 11/03/2010 [facility], JAI R 592.9 Urinary Calculus Unspecified 11/03/2010 [facility], JAI R 599.0 Urinary Tract Infection Site Not Specified 11/03/2010 [facility], JAI R 796.2 Elevated Blood Pressure Reading Without Diagnosis Of Hypertension 11/03/2010 [facility], JAI R 078.10 Viral Warts Unspecified 11/03/2010 [facility], JAI R 300.00 AN ANXIETY UNSPEC 11/03/2010 [facility], JAI R 311 DEPRESSIVE DISORDER NOS 11/03/2010 [facility], JAI R 592.9 Urinary Calculus Unspecified 11/03/2010 [facility], JAI R 599.0 Urinary Tract Infection Site Not Specified 11/03/2010 [facility], JAI R 796.2 Elevated Blood Pressure Reading Without Diagnosis Of Hypertension 11/03/2010 [facility], JAI R 078.10 Viral Warts Unspecified 11/03/2010 [facility], JAI R 300.00 AN ANXIETY UNSPEC 11/03/2010 [facility], JAI R 311 DEPRESSIVE DISORDER NOS 11/03/2010 [facility], JAI R 592.9 Urinary Calculus Unspecified 11/03/2010 [facility], JAI R 599.0 Urinary Tract Infection Site Not Specified 11/03/2010 [facility], JAI R 796.2 Elevated Blood Pressure Reading [...] Pressure Reading Without Diagnosis Of Hypertension 11/03/2010 [facility], JAI R 078.10 Viral Warts Unspecified 11/03/2010 [facility], JAI R 300.00 AN ANXIETY UNSPEC 11/03/2010 [facility], JAI R 311 DEPRESSIVE DISORDER NOS 11/03/2010 [facility] 592.9 Urinary Calculus Unspecified 11/03/2010 [facility], JAI R 599.0 Urinary Tract Infection Site Not Specified 11/03/2010 [facility] R 796.2 Elevated Blood Pressure Reading Without Diagnosis Of Hypertension 11/03/2010 [facility], JAI R 078.10 Viral Warts Unspecified 11/03/2010 [facility] R 300.00 AN ANXIETY UNSPEC 11/03/2010 [facility] R 311 DEPRESSIVE DISORDER NOS 11/03/2010 [facility], JAI R 592.9 Urinary Calculus Unspecified 11/03/2010 [facility] R 599.0 Urinary Tract Infection Site Not Specified 11/03/2010 [facility], JAI R 796.2 Elevated Blood Pressure Reading Without Diagnosis Of Hypertension 11/03/2010 [facility], JAI R 078.10 Viral Warts Unspecified 11/03/2010 [facility], JAI R 300.00 AN ANXIETY UNSPEC 11/03/2010 [facility] R 311 DEPRESSIVE DISORDER NOS 11/03/2010 [facility], JAI R 592.9 Urinary Calculus Unspecified 11/03/2010 [facility] R 599.0 Urinary Tract Infection Site Not Specified 11/03/2010 [facility], JAI R 796.2 Elevated Blood Pressure Reading Without Diagnosis Of Hypertension 11/03/2010 [facility], JAI R 078.10 Viral Warts Unspecified 11/03/2010 [facility], JAI R 300.00 AN ANXIETY UNSPEC 11/03/2010 [facility] R 311 DEPRESSIVE DISORDER NOS 11/03/2010 [facility], JAI R 592.9 Urinary Calculus Unspecified 11/03/2010 [facility] R 599.0 Urinary Tract Infection Site Not Specified 11/03/2010 [facility], JAI R 796.2 Elevated Blood Pressure Reading Without Diagnosis Of Hypertension 11/03/2010 [facility], JAI R 078.10 Viral Warts Unspecified 11/03/2010 [facility] R 300.00 AN ANXIETY UNSPEC 11/03/2010 [...] Urinary Tract Infection Site Not Specified 11/03/2010 [facility] R 796.2 Elevated Blood Pressure Reading Without Diagnosis Of Hypertension 11/03/2010 [facility] R 078.10 Viral Warts Unspecified 11/03/2010 [facility], JAI R 300.00 AN ANXIETY UNSPEC 11/03/2010 [facility], JAI R 311 DEPRESSIVE DISORDER NOS 11/03/2010 [facility] R 592.9 Urinary Calculus Unspecified 11/03/2010 [facility], JAI R 599.0 Urinary Tract Infection Site Not Specified 11/03/2010 [facility] R 796.2 Elevated Blood Pressure Reading Without Diagnosis Of Hypertension 11/03/2010 [facility], JAI R 078.10 Viral Warts Unspecified 11/03/2010 [facility], JAI R 300.00 AN ANXIETY UNSPEC 11/03/2010 [facility], JAI R 311 DEPRESSIVE DISORDER NOS 11/03/2010 [facility] R 592.9 Urinary Calculus Unspecified 11/03/2010 [facility], JAI R 599.0 Urinary Tract Infection Site Not Specified 11/03/2010 [facility] R 796.2 Elevated Blood Pressure Reading Without Diagnosis Of Hypertension 11/03/2010 [facility], JAI R 078.10 Viral Warts Unspecified 11/03/2010 [facility], JAI R 300.00 AN ANXIETY UNSPEC 11/03/2010 [facility], JAI R 311 DEPRESSIVE DISORDER NOS 11/03/2010 [facility], JAI R 592.9 Urinary Calculus Unspecified 11/03/2010 [facility], JAI R 599.0 Urinary Tract Infection Site Not Specified 11/03/2010 [facility], AJI R 796.2 Elevated Blood Pressure Reading Without Diagnosis Of Hypertension 11/03/2010 [facility], JAI R 078.10 Viral Warts Unspecified 11/03/2010 [facility], JAI R 300.00 AN ANXIETY UNSPEC 11/03/2010 [facility], JAI R 311 DEPRESSIVE DISORDER NOS 11/03/2010 [facility], JAI R 592.9 Urinary Calculus Unspecified 11/03/2010 [facility], JAI R 599.0 Urinary Tract Infection Site Not Specified 11/03/2010 [facility], JAI R 796.2 Elevated Blood Pressure Reading Without Diagnosis Of Hypertension 11/03/2010 JESUS SCOREKEEPERGISELLEIA R 078.10 Viral Warts Unspecified 11/03/2010 JESUS WHITTINGTONNPEGGYTERESA R 300.00 AN ANXIETY UNSPEC 11/03/2010 PEGGY LEE APRNRICIA R 311 DEPRESSIVE DISORDER NOS 11/03/2010 JESUS WHITTINGTONN TERESA R 592.9 Urinary Calculus Unspecified 11/03/2010 JESUS SCOREKEEPER TERESA R 599.0 Urinary Tract Infection Site Not Specified 11/03/2010 GISELLE LEE APRNIA R 796.2 Elevated Blood Pressure Reading Without Diagnosis Of Hypertension 11/03/2010 ADRIANA LEON APRNA S 078.10 Viral Warts Unspecified 11/03/2010 LOKI LEON APRNNDA S 300.00 AN ANXIETY UNSPEC 11/03/2010 CAROLYN ABEBE VLADIMIR S 311 DEPRESSIVE DISORDER NOS 11/03/2010 [facility] WHITTINGTONN, VLADIMIR S 592.9 Urinary Calculus Unspecified 11/03/2010 CAROLYN SCOREKEEPER, VLADIMIR S 599.0 Urinary Tract Infection Site Not Specified 11/03/2010 [facility] WHITTINGTONN, VLADIMIR S 796.2 Elevated Blood Pressure Reading Without Diagnosis Of Hypertension 01/20/2011 [facility], JAI R 401.9 Unspecified Essential Hypertension 01/20/2011 [facility], JAI R 401.9 Unspecified Essential Hypertension 01/20/2011 [facility], JAI R 401.9 Unspecified Essential Hypertension 01/20/2011 [...] R 401.9 Unspecified Essential Hypertension 01/20/2011 CAROLYN SCOREKEEPER, VLADIMIR S 401.9 Unspecified Essential Hypertension 01/28/2011 [...] 401.1 BENIGN ESSENTIAL HYPERTENSION 01/28/2011 [facility], JIA R 401.1 BENIGN ESSENTIAL HYPERTENSION 01/28/2011 [facility] [...] R 034.0 STREP THROAT 02/10/2012 [facility], AJI R 034.0 STREP THROAT 02/10/2012 GISELLE LEE APRNIA R 034.0 STREP THROAT 02/10/2012 LOKI LEON APRNNDA S 034.0 STREP THROAT 08/03/2012 GEOVANNA PANDEY DO Ot 300.00 ANXIETY STATE NOS 08/03/2012 GEOVANNA PANDEY DO Ot 311 DEPRESSIVE DISORDER NEC 08/03/2012 GEOVANNA PANDEY DO Ot 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 08/03/2012 GEOVANNA PANDEY DO Ot 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 08/03/2012 GEOVANNA PANDEY DO Ot V06.4 [id number] 08/03/2012 GEOVANNA PANDEY DO Ot V27.0 DELIVER-SINGLE LIVEBORN 09/11/2012 [facility], JAI R 462 ACUTE PHARYNGITIS 09/11/2012 [facility], JAI R 462 ACUTE PHARYNGITIS 09/11/2012 [facility], JAI R 462 ACUTE PHARYNGITIS 09/11/2012 [facility], JAI R 462 ACUTE PHARYNGITIS 09/11/2012 [facility], JAI R 462 ACUTE PHARYNGITIS 09/11/2012 [facility], JAI R 462 ACUTE PHARYNGITIS 09/11/2012 [facility], JAI R 462 ACUTE PHARYNGITIS 09/11/2012 [facility], JAI R 462 ACUTE PHARYNGITIS 09/11/2012 [facility], JAI R 462 ACUTE PHARYNGITIS 09/11/2012 [facility], JAI R 462 ACUTE PHARYNGITIS 09/11/2012 TERESA [...] EXAM - ROUTINE H&P 06/04/2014 VLADIMIR LEON CLEANER AND PREPARER Ot 305.00 06/04/2014 VLADIMIR LEON CLE[employer]ER AND PREPARER Ot 780.79 06/04/2014 VLADIMIR LEON CLE[employer]ER AND PREPARER Ot 789.00 07/18/2014 VLADIMIR LEONP Ot 305.00 07/18/2014 VLADIMIR LEON CLEANER AND PREPARER Ot 780.79 07/18/2014 VLADIMIR LEON CLEANER AND PREPARER Ot 789.00 05/26/2015 VLADIMIR LEON CLEANER AND PREPARER Ot 305.00 ALCOHOL ABUSE-UNSPEC 05/26/2015 VLADIMIR LEON CLE[employer]ER AND PREPARER Ot 780.79 OTH MALAISE FATIGUE 05/26/2015 VLADIMIR LEON CLEANER AND PREPARER Ot 789.00 ABDOMINAL PAIN, UNSPECIFIED SITE 07/13/2015 VLADIMIR LEON CLEANER AND PREPARER Ot 305.00 ALCOHOL ABUSE-UNSPEC 07/13/2015 VLADIMIR LEON CLEANER AND PREPARER Ot 780.79 OTH MALAISE FATIGUE 07/13/2015 VLADIMIR LEON CLEANER AND PREPARER Ot 789.00 ABDOMINAL PAIN, UNSPECIFIED SITE 07/14/2015 VLADIMIR LEON CLEANER AND PREPARER Ot 305.00 ALCOHOL ABUSE-UNSPEC 07/14/2015 VLADIMIR LEON CLEANER AND PREPARER Ot 780.79 OTH MALAISE FATIGUE 07/14/2015 VLADIMIR LEONP Ot 789.00 ABDOMINAL PAIN, UNSPECIFIED SITE 12/15/2015 VLADIMIR LEON CLEANER AND PREPARER Ot 305.00 ALCOHOL ABUSE-UNSPEC 12/15/2015 VLADIMIR LEON CLEANER AND PREPARER Ot 780.79 OTH MALAISE FATIGUE 12/15/2015 VLADIMIR LEON CLEANER AND PREPARER Ot 789.00 ABDOMINAL PAIN, UNSPECIFIED SITE 12/15/2015 GREGORIA OQUENDO SCOREKEEPER Ot F17.210 NICOTINE DEPENDENCE, CIGARETTES, UNCOMPL 12/15/2015 GREGORIA OQUENDO SCOREKEEPER Ot S93.401A SPRAIN OF UNSPECIFIED LIGAMENT OF RIGHT 12/15/2015 GREGORIA OQUENDO SCOREKEEPER Ot S99.921A UNSPECIFIED INJURY OF RIGHT FOOT, [...] 780.79 OTH MALAISE FATIGUE 12/25/2015 VLADIMIR LEON CLEANER AND PREPARER Ot 789.00 ABDOMINAL PAIN, UNSPECIFIED SITE 02/08/2016 VLADIMIR LEON CLEANER AND PREPARER Ot 305.00 ALCOHOL ABUSE-UNSPEC 02/08/2016 VLADIMIR LEONP Ot 780.79 OTH MALAISE FATIGUE 02/08/2016 VLADIMIR LEONP Ot 789.00 ABDOMINAL PAIN, UNSPECIFIED SITE 11/29/2016 VLADIMIR LEON CLEANER AND PREPARER Ot 305.00 ALCOHOL ABUSE-UNSPEC 11/29/2016 VLADIMIR LEON CLEANER AND PREPARER Ot 780.79 OTH MALAISE FATIGUE 11/29/2016 VLADIMIR LEON CLEANER AND PREPARER Ot 789.00 ABDOMINAL PAIN, UNSPECIFIED SITE 11/29/2016 GREGORIA OQUENDO APRN Ot F32.9 MAJOR DEPRESSIVE DISORDER, SINGLE EPISOD 11/29/2016 GREGORIA OQUENDO SCOREKEEPER Ot F41.9 ANXIETY DISORDER, UNSPECIFIED 11/29/2016 GREGORIA OQUENDO SCOREKEEPER Ot K52.9 NONINFECTIVE GASTROENTERITIS AND COLITIS 11/29/2016 GREGORIA OQUENDO SCOREKEEPER Ot K56.7 ILEUS, UNSPECIFIED 11/29/2016 GREGORIA OQUENDO SCOREKEEPER Ot R10.13 EPIGASTRIC PAIN 11/29/2016 GREGORIA OQUENDO SCOREKEEPER Ot Z87.448 PERSONAL HISTORY OF OTHER DISEASES OF UR 12/01/2016 GREGORIA OQUENDO SCOREKEEPER Ot F32.9 MAJOR DEPRESSIVE DISORDER, SINGLE EPISOD 12/01/2016 GREGORIA OQUENDO APRN Ot F41.9 ANXIETY DISORDER, UNSPECIFIED 12/01/2016 GREGORIA OQUENDO APRN Ot K52.9 NONINFECTIVE GASTROENTERITIS AND COLITIS 12/01/2016 GREGORIA OQUENDO SCOREKEEPER Ot K56.7 ILEUS, UNSPECIFIED 12/01/2016 GREGORIA OQUENDO APRN Ot R10.13 EPIGASTRIC PAIN 12/01/2016 GREGORIA OQUENDO SCOREKEEPER Ot Z87.448 PERSONAL HISTORY OF OTHER DISEASES OF UR 03/02/2017 BUZZ HOLLIS, JHONY Pascual Ot M54.5 LOW BACK PAIN 03/02/2017 BUZZ HOLLIS, JHONY Pascual Ot R20.2 PARESTHESIA OF SKIN Procedures Code Description [place] [address] INDIV PSYTX 45/50 MIN 12/01/2011 09688 INDIV PSYTX 45/50 MIN 12/16/2011 81922 INDIV PSYTX 45/50 MIN 01/21/2012 12542 PSYTX PT&/FAMILY 45 MINUTES 02/10/2012 12130 PSYTX PT&/FAMILY 45 MINUTES 03/16/2012 01831 PSYTX PT&/FAMILY 45 MINUTES 04/06/2012 01358 PSYTX PT&/FAMILY 45 MINUTES 05/19/2012 05457 PSYTX PT&/FAMILY 45 MINUTES 07/06/2012 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 08/01/2012 73.6 EPISIOTOMY 08/01/2012 29124 PSYTX PT&/FAMILY 45 MINUTES 10/18/2012 91146 PSYTX PT&/FAMILY 45 MINUTES 12/01/2012 57162 PSYTX PT&/FAMILY 45 MINUTES 02/01/2013 18956 PSYTX PT&/FAMILY 45 MINUTES 03/13/2013 77106 PSYTX PT&/FAMILY 45 MINUTES 03/28/2013 84940 PSYTX PT&/FAMILY 45 MINUTES 05/10/2013 96632 PSYTX PT&/FAMILY 45 MINUTES 05/24/2013 45295 PSYTX PT&/FAMILY 45 MINUTES 06/22/2013 46240 PSYTX PT&/FAMILY 45 MINUTES 07/17/2013 97138 PSYTX PT&/FAMILY 45 MINUTES 07/31/2013 55800 ROUTINE VENIPUNCTURE 05/29/2014 65109 US ABDOMINAL ULTRASOUND, COMPLETE 05/29/2014 56870 CBC 05/29/2014 8710450 GFR CALC (RESULT ONLY) 05/29/2014 40215 CMP 05/29/2014 16739 LIPID PANEL 05/29/2014 71037 LIPASE 05/29/2014 28660 TSH 05/29/2014 Results Test Result Range Complete [...] Status Pt. Type Provider Facility Loc./Unit Complaint [id number] 03/01/2017 15:43:00 03/01/2017 17:43:00 DIS Emergency GREGORIA OQUENDO APRN [facility] ER BACK PAIN [id number] 02/28/2017 16:18:00 02/28/2017 18:22:00 DIS Outpatient BUZZ HOLLIS, JHONY Pascual [facility] ER PINCHED NERVE IN BACK, TOES ARE GOING NUMB [id number] 11/29/2016 16:13:00 11/29/2016 19:36:00 DIS Emergency GREGORIA OQUENDO APRN [facility] ER DIARRHEA/STOMACH PAIN [id number] 12/15/2015 10:24:00 12/15/2015 12:49:00 DIS Emergency GREGORIA OQUENDO APRN [facility] ER RIGHT FOOT INJURY [id number] 05/29/2014 07:28:00 05/29/2014 23:59:59 CLS Outpatient VLADIMIR LEON [facility] RAD ABD PAIN,FATIGUE [id number] 05/22/2013 16:27:00 05/22/2013 19:09:00 DIS Emergency IBETH ARREOLA MD [facility] ER CRAMPING [id number] 08/01/2012 07:25:00 08/03/2012 12:30:00 DIS Inpatient GEOVANNA PANDEY DO [facility] WS INDUCTION [id number] 06/04/2014 10:37:00 Document Registration [id number] 06/04/2014 10:37:00 Document Registration [id number] 05/29/2014 08:23:00 05/29/2014 23:59:59 CLS Outpatient VLADIMIR LEON APRN [id number] 08/13/2013 13:55:00 08/13/2013 23:59:59 CLS Outpatient TERESA LEE APRN [id number] 07/31/2013 16:18:00 07/31/2013 23:59:59 CLS Outpatient SARTHAK LSCS, JAI Cardenas [id number] 07/17/2013 16:58:00 07/17/2013 23:59:59 CLS Outpatient SARTHAK LSCS, JAI R [id number] 06/22/2013 15:06:00 06/22/2013 23:59:59 CLS Outpatient SARTHAK LSCS, JAI R [id number] 05/23/2013 15:05:00 05/23/2013 23:59:59 CLS Outpatient SARTHAK LSCS, JAI Cardenas [id number] 05/09/2013 15:08:00 05/09/2013 23:59:59 CLS Outpatient SARTHAK LSCS, JAI Cardenas [id number] 03/28/2013 15:25:00 03/28/2013 23:59:59 CLS Outpatient SARTHAK LSCS, JAI R [id number] 03/09/2013 14:01:00 03/09/2013 23:59:59 CLS Outpatient SARTHAK LSCS, JAI R [id number] 02/01/2013 15:06:00 02/01/2013 23:59:59 CLS Outpatient SARTHAK LSCS, JAI Cardenas [id number] 11/30/2012 16:10:00 11/30/2012 23:59:59 CLS Outpatient SARTHAK LSCS, JIA Cardenas [id number] 10/18/2012 15:07:00 10/18/2012 23:59:59 CLS Outpatient SARTHAK LSCS JAI Cardenas [id number] 04/06/2012 13:04:00 04/06/2012 23:59:59 CLS Outpatient [id number] 03/16/2012 16:05:00 03/16/2012 23:59:59 CLS Outpatient [id number] 02/10/2012 15:02:00 02/10/2012 23:59:59 CLS Outpatient JAI ROSE [id number] 01/13/2012 15:05:00 01/13/2012 23:59:59 CLS Outpatient SARTHAK LSJAI CARVAJAL [id number] 12/01/2011 14:05:00 12/01/2011 23:59:59 [id number] 07/04/2012 15:05:00 Document Registration [id number] 05/19/2012 15:04:00 Document Registration
--- NOTE | 2017-03-10 12:59 | ED Back Pain ---
General Chief Complaint: Back Problems Stated Complaint: BACK PAIN-OUT OF PAIN MEDS Nursing Triage Note: PT CO OF ONGOING BACK PAIN, OUT OF MEDS, CANT GET INTO SEE DR FOR A FEW WEEKS, STATES HAVING SOME DIFF W URINATION, STATES INC, STATES HURTS TO HOLD URINE. PT STATES NOT ABLE TO LIE DOWN SITTING IN CHAIR Nursing Sepsis Screen: No Definite Risk Source of Information: Patient Exam Limitations: No Limitations History of Present Illness Date Seen by Provider: Mar 10, 2017 Time Seen by Provider: 12:58 Initial Comments To ER by her mother with reports of ongoing and worsening low back pain, worsening numbness down the left leg. She was seen here recently for this and given prescription for hydrocodone as she had just been to urgent care and given a steroid Dosepak. She finished all of those but no improvement. She states it hurts to hold her urine and has been having some incontinence that she cannot make it to the bathroom in time since her last visit. At the time of her last visit she had none of the red flags for low back pain she was treated conservatively. Given worsening of symptoms we'll proceed with MRI lumbar spine today. Location: Lumbar Spine Timing/Duration: 1 Week, Getting Worse Severity: Moderate Associated Symptoms: tingling in legs/feet, sensory/motor loss, lower back pain Allergies and Home Medications Allergies Coded Allergies: NKANo Known Allergies (Verified Allergy, Unknown, 12/21/05) Home Medications Alprazolam 1 Mg Tablet, 1 MG PO NEEDED, (Reported) Hydrocodone/Acetaminophen 1 Each Tablet, 1 EACH PO Q4H PRN for PAIN-SEVERE, #20 Prescribed by: GREGORIA OQUENDO on 03/01/17 1634 Metoprolol Succinate 50 Mg Tab.er.24h, 50 MG PO DAILY, #14 Prescribed by: GREGORIA OQUENDO on 03/01/17 1739 Ondansetron 8 Mg Tab.rapdis, 8 MG PO Q6H PRN for NAUSEA/VOMITING-1ST LINE, #14 Prescribed by: GREGORIA OQUENDO on 11/29/16 1841 Oxycodone HCl/Acetaminophen 1 Each Tablet, 1 EACH PO Q4H PRN for PAIN, #10 Prescribed by: GREGORIA OQUENDO on 12/15/15 1242 Oxycodone HCl/Acetaminophen 1 Each Tablet, 1 EACH PO Q6H PRN for PAIN-MODERATE TO SEVERE, #20 Prescribed by: GREGORIA OQUENDO on 03/10/17 1510 Sertraline Hcl 100 Mg Tablet, 1 TAB PO DAILY, #30 Prescribed by: GEOVANNA PANDEY on 08/03/12 0906 Constitutional: see HPI EENTM: see HPI Respiratory: no symptoms reported Cardiovascular: no symptoms reported Genitourinary: no symptoms reported Musculoskeletal: see HPI, back pain Skin: no symptoms reported Psychiatric/Neurological: No Symptoms Reported Past Ghyoymd-Utxkux-Hbycym Hx Patient Social History Alcohol Beverage of Choice: Cheap Liquor Type Used: Cigarettes Recent Foreign Travel: No Contact w/Someone Who Travel: No Recent Infectious Disease Expo: No Recent Hopitalizations: No Physical Abuse: No Sexual Abuse: No Immunizations Up To Date Tetanus Booster (TDap): Less than 5yrs Seasonal Allergies Seasonal Allergies: Yes Surgeries History of Surgeries: No Respiratory History of Respiratory Disorde: No Cardiovascular History of Cardiac Disorders: No Neurological History of Neurological Disord: No Reproductive System Last Menstrual Period: Mar 10, 2017 Hx Reproductive Disorders: No Genitourinary History of Genitourinary Disor: Yes Genitourinary Disorders: Bladder Infection Gastrointestinal History of Gastrointestinal Di: No Musculoskeletal History of Musculoskeletal Dis: No Endocrine History of Endocrine Disorders: No HEENT History of HEENT Disorders: No Cancer History of Cancer: No Psychosocial History of Psychiatric Problem: Yes Behavioral Health Disorders: Anxiety, Depression Suicide Risk Score: 0 Integumentary History of Skin or Integumenta: No Blood Transfusions History of Blood Disorders: No Adverse Reaction to a Blood Tr: No Physical Exam Vital Signs Vital Sign - Last 12Hours 03/10/17 12:50 Temp 97.0 Pulse 90 Resp 18 B/P (MAP) 175/115 (135) Pulse Ox 98 Capillary Refill : Less Than 3 Seconds General Appearance: No Apparent Distress, WD/WN HEENT: PERRL/EOMI, TMs Normal Neck: Full Range of Motion, Normal Inspection Respiratory: No Accessory Muscle Use, No Respiratory Distress Gastrointestinal: Normal Bowel Sounds, Non Tender, Soft Extremity: Normal Capillary Refill, Normal Inspection Neurologic/Psychiatric: Alert, Oriented x3, No Motor/Sensory Deficits Skin: Normal Color, Warm/Dry Progress/Results/Core Measures Results/Orders Lab Results Laboratory Tests Test 03/10/17 13:15 Range/Units Urine Color YELLOW Urine Clarity CLEAR Urine pH 5 5-9 Urine Specific Chandler 1.020 1.016-1.022 Urine Protein 3+ H NEGATIVE Urine Glucose (UA) NEGATIVE NEGATIVE Urine Ketones NEGATIVE NEGATIVE Urine Nitrite NEGATIVE NEGATIVE Urine Bilirubin NEGATIVE NEGATIVE Urine Urobilinogen NORMAL NORMAL MG/DL Urine Leukocyte Esterase 1+ H NEGATIVE Urine RBC (Auto) 5+ H NEGATIVE Urine RBC 5-10 H /HPF Urine WBC 10-25 H /HPF Urine Squamous Epithelial Cells 5-10 /HPF Urine Crystals NONE /LPF Urine Bacteria LARGE H /HPF Urine Casts NONE /LPF Urine Mucus NEGATIVE /LPF Urine Culture Indicated YES My Orders Orders - GREGORIA OQUENDO APRN Ua Culture If Indicated (03/10/17 12:56) Bladder Scan (03/10/17 12:56) Mri Lumbar Spine W/O Contrast (03/10/17 12:56) Clonidine Tablet (Catapres Tablet) (03/10/17 13:30) Urine Culture (03/10/17 13:15) Sulfamethoxazole/Trimet Ds Tab (Bactrim (03/10/17 13:45) Hydrocodone/Apap 5/325 Tablet (Lortab 5 (03/10/17 14:00) Medications Given in ED Current Medications Medications Dose Ordered Sig/Teri Route Start Time Stop Time Status Last Admin Dose Admin Acetaminophen/ Hydrocodone Bitart 1 tab ONCE ONCE PO 03/10/17 14:00 03/10/17 14:01 DC 03/10/17 13:54 1 TAB Clonidine HCl 0.1 mg ONCE ONCE PO 03/10/17 13:30 03/10/17 13:31 DC 03/10/17 13:48 0.1 MG Trimethoprim/ Sulfamethoxazole 1 ea ONCE ONCE PO 03/10/17 13:45 03/10/17 13:46 DC 03/10/17 13:48 1 EA Vital Signs/I&O Vital Sign - Last 12Hours 03/10/17 12:50 Temp 97.0 Pulse 90 Resp 18 B/P (MAP) 175/115 (135) Pulse Ox 98 Blood Pressure Mean: 135 Diagnostic Imaging Diagonstic Imaging: Xray Comments NAME: CASTILLO LOPEZ MED REC#: [id number] PT STATUS: REG ER : 1980 PHYSICIAN: GREGORIA OQUENDO APRN ADMIT DATE: 03/10/17/ER Draft Date of Exam:03/10/17 MRI LUMBAR SPINE W/O CONTRAST INDICATION: Low back pain and left leg pain with left foot numbness. Multiplanar multisequence imaging of the lumbar spine was performed without contrast. No prior studies are available for comparison. FINDINGS: Curvature and alignment of the lumbar spine is normal. Vertebral body heights are maintained. The marrow signal intensity is unremarkable. No geographic marrow lesion or compression fracture is identified. There is fairly normal height and signal intensity to the lumbar discs with the exception of some desiccation at the L5-S1 level. The conus is unremarkable at the T12-L1 level. T12-L1: No central canal or neuroforaminal stenosis is identified. L1-L2: There is some asymmetric left paracentral wide-based disc bulging producing slight indentation upon the ventral thecal sac. There is linear signal within the posterior annulus at this location suggestive of annular tear. However, no resultant central canal or neuroforaminal stenosis is seen. L2-L3: There is a small midline disc bulge indenting the ventral thecal sac. Very slight narrowing of the central canal is noted. The neuroforamina are patent. L3-L4: There is ligamentous thickening present. The central canal is widely patent. The neuroforamina are patent. L4-L5: Ligamentous thickening and facet changes are noted. There does appear to be trefoil narrowing of the central canal. There is narrowing of the lateral recesses bilaterally. Neuroforamina are patent. L5-S1: There are facet changes and ligamentous thickening producing moderate narrowing of the canal. Broad based disc/osteophyte complex does appear to indent the exiting S1 nerve roots at the lateral recesses. Neuroforamina are patent. The paraspinous tissues are unremarkable. IMPRESSION: Lumbar spondylosis and facet arthropathy. There is multilevel central canal and lateral recess stenosis, described level by level above. No significant neuroforaminal stenosis is seen. Dictated on workstation # [id number] Dict: 03/10/17 1424 Trans: 03/10/17 1434 ANTWAN [id number] Interpreted by: SAMEERA MURRAY MD Electronically signed by: Departure Communication (Admissions) Progress Notes 1338- postvoid residual bladder scan shows 11ml, 12ML, 10MLon each of 3 readings , no loss of bowel or bladder control, no fevers. Impression Impression: Primary Impression: Lumbar radiculopathy Additional Impression: Urinary tract infection Disposition: HOME, SELF-CARE Condition: Stable Departure-Patient Inst. Decision time for Depature: 13:46 Referrals: [facility] [place] (PCP/Family) Primary Care Physician GEOFFREY OZUNA MD, TOBY G DO Patient Instructions: Radiculopathy Add. Discharge Instructions: 1. Pain medication as directed 2. Follow-up with your doctor this week to discuss treatment options which may include lumbar spine injections. I did make an appointment for you on April 12 at 3 PM Scripts Oxycodone HCl/Acetaminophen (Oxycodone-Acetaminophen 5-325) 1 Each Tablet 1 EACH PO Q6H Y for PAIN-MODERATE TO SEVERE, #20 TAB Prov: GREGORIA OQUENDO APRN 03/10/17 Copy Copies To 1: ANNIE NICE DO; GEOFFREY OZUNA MD; SHAHZAD NOBLE PETER J APRN Mar 10, 2017 12:59
[2017-03-10 13:24] LABS: BILIRUBIN,URINE NEGATIVE (NEGATIVE); CLARITY,URINE CLEAR; COLOR,URINE YELLOW; GLUCOSE, URINE (UA) NEGATIVE (NEGATIVE); KETONES,URINE NEGATIVE (NEGATIVE); LEUKOCYTE ESTERASE ,URINE 1+ (NEGATIVE); NITRITE,URINE NEGATIVE (NEGATIVE); PH,URINE 5 (5-9); PROTEIN,URINE 3+ (NEGATIVE); UROBILINOGEN,URINE NORMAL (NORMAL)
[2017-03-10] MEDS ORDERED: cloNIDine 0.1 MG (CATAPRES) TAB PO ONE (13:30)
[2017-03-10 13:40] LABS: BACTERIA,URINE LARGE /HPF
[2017-03-10] MEDS ORDERED: TRIM/SULFAMETH 160/800 (SEPTRA DS) TAB PO ONE (13:45)
[2017-03-10] MEDS ORDERED: HYDROcodone/APAP 5 MG/325 MG (LORTAB) TAB PO ONE (14:00)
--- NOTE | 2017-03-10 14:34 | Diagnostic Imaging Report ---
INDICATION: Low back pain and left leg pain with left foot numbness. Multiplanar multisequence imaging of the lumbar spine was performed without contrast. No prior studies are available for comparison. FINDINGS: Curvature and alignment of the lumbar spine is normal. Vertebral body heights are maintained. The marrow signal intensity is unremarkable. No geographic marrow lesion or compression fracture is identified. There is fairly normal height and signal intensity to the lumbar discs with the exception of some desiccation at the L5-S1 level. The conus is unremarkable at the T12-L1 level. T12-L1: No central canal or neuroforaminal stenosis is identified. L1-L2: There is some asymmetric left paracentral wide-based disc bulging producing slight indentation upon the ventral thecal sac. There is linear signal within the posterior annulus at this location suggestive of annular tear. However, no resultant central canal or neuroforaminal stenosis is seen. L2-L3: There is a small midline disc bulge indenting the ventral thecal sac. Very slight narrowing of the central canal is noted. The neuroforamina are patent. L3-L4: There is ligamentous thickening present. The central canal is widely patent. The neuroforamina are patent. L4-L5: Ligamentous thickening and facet changes are noted. There does appear to be trefoil narrowing of the central canal. There is narrowing of the lateral recesses bilaterally. Neuroforamina are patent. L5-S1: There are facet changes and ligamentous thickening producing moderate narrowing of the canal. Broad based disc/osteophyte complex does appear to indent the exiting S1 nerve roots at the lateral recesses. Neuroforamina are patent. The paraspinous tissues are unremarkable. IMPRESSION: Lumbar spondylosis and facet arthropathy. There is multilevel central canal and lateral recess stenosis, described level by level above. No significant neuroforaminal stenosis is seen. Dictated by: Dictated on workstation # [id number]
[2017-03-10] MEDS ORDERED: OXYC-471 PO (15:10)
[2017-03-10] MEDS ORDERED: SULF1TAB35 PO (15:24)
[2017-03-10 15:30] VITALS: BP 146/104
== END 2017-03-10 15:30 | disposition home or self-care (01) ==
LOC: EDUNIT# 12:42 → ER 12:44
DX: M54.16 Radiculopathy, lumbar region (principal); N39.0 Urinary tract infection, site not specified; F41.9 Anxiety disorder, unspecified; F32.9 Major depressive disorder, single episode, unspecified
CPT/HCPCS: 72148; 81000; 87088; 99283

== ENCOUNTER 2017-08-18 14:47 | Outpatient (CLI) | payer MEDICAID ==
[~2017-08-18] VITALS: Ht 165.1 cm; Wt 98.9 kg
[~2017-08-18 14:47] MED LIST changes: +OXYC-471 PO; +SULF1TAB35 PO
[2017-08-18] MEDS ORDERED: methylPREDNISolone 80 MG/ML (DEPO MEDROL) VIAL ONE (14:51)
[2017-08-18 14:56] VITALS: BP 191/124
[2017-08-18] MEDS ORDERED: DEXAMETHASONE 10 MG/ML (DECADRON) 1 ML VIAL ONE (15:10)
[2017-08-18 15:20] VITALS: BP 195/116
--- NOTE | 2017-08-18 22:42 | OPERATIVE REPORT ---
DATE OF SERVICE: 08/18/2017 PREOPERATIVE AND POSTOPERATIVE DIAGNOSIS: Lumbar radiculopathy. OPERATIVE PROCEDURE: Left-sided transforaminal epidural steroid injection at the levels of L4-L5 and L5-S1. ANESTHESIA: Propofol. COMPLICATIONS: None. CLINICAL SURGICAL COURSE: After being placed in the prone position upon a procedure table, we then administered Propofol for anesthesia. The area overlying the (higher process, sacral ala) transverse process was identified under fluoroscopic guidance. The skin overlying the area was prepped with Betadine. The skin and the deep structures were anesthetized with 5 mL of 1% Lidocaine. A 25 gauge needle was then carried down to the neural foramen under direct fluoroscopic guidance. The needle was directed to lie under the pedicle at a 6 o'clock position. The needle depth was confirmed by lateral fluoroscopy. The tip of the needle was directed to the posterior aspect of the foramen. Following the appropriate positioning of the needle in the foramen, 1 cc of Isovue 300 was injected. A proximal and distal spread of the dye was noted. No vascular uptake was noted. Finally, 80 mg of Dexamethasone diluted in a total volume of 3 mms of preservative free saline was injected with good wash out of the contrast media observed. No blood, CSF or paresthesia was noted during the procedure. Job ID: [id number] DocumentID: [id number] Dictated Date: 08/18/2017 15:21:31 Sleeve Fixer Date: 08/18/2017 22:41:20 Dictated By: BARBARA CASEY DO
== END 2017-08-18 15:21 ==
LOC: CARD 14:47
PROVIDERS: ATTEND Pain Medicine Interventional Pain Medicine
DX: M54.16 Radiculopathy, lumbar region (principal)
CPT/HCPCS: 64483; 64484

== ENCOUNTER 2019-01-02 23:59 | Emergency (ER) | payer OTHER, MEDICAID ==
[~2019-01-02] VITALS: Ht 170 cm; Wt 113.3 kg
[~2019-01-02 23:59] MED LIST changes: +HYDR-4226 PO; -HYDR-757 PO; -OXYC-197 PO; +OXYC1TAB87 PO
[2019-01-03] VITALS: BP 126/78
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
[2019-01-03] MEDS ORDERED: LIDOCAINE 1% INJ 20 ML 20 ML VIAL ONE (00:25)
[2019-01-03] MEDS ORDERED: KETAMINE/NaCl 50 MG/5 ML SYRINGE (ED ONLY) IV ONE (00:30)
[2019-01-03] MEDS ORDERED: ceFAZolin 2 GM IV Premixed 50 ML IV ONE (00:30)
[2019-01-03] MEDS ORDERED: fentaNYL INJECTION 100 MCG/2 ML AMP ONE (00:38)
[2019-01-03] MEDS ORDERED: TETANUS,DIPTH,PERTUSS P/F (BOOSTRIX) 0.5 ML VIAL IM ONE (01:15)
[2019-01-03 01:31] LABS: BILIRUBIN,URINE NEGATIVE (NEGATIVE); CLARITY,URINE CLEAR; COLOR,URINE YELLOW; GLUCOSE, URINE (UA) NEGATIVE (NEGATIVE); KETONES,URINE NEGATIVE (NEGATIVE); LEUKOCYTE ESTERASE ,URINE NEGATIVE (NEGATIVE); NITRITE,URINE NEGATIVE (NEGATIVE); PROTEIN,URINE 1+ (NEGATIVE)
[2019-01-03 01:44] LABS: AMPHETAMINE SCREEN, URINE NEGATIVE (NEGATIVE); BACTERIA,URINE NEGATIVE /HPF; BARBITURATE SCREEN URINE NEGATIVE (NEGATIVE); BENZODIAZEPINES SCREEN URINE NEGATIVE (NEGATIVE); CANNABINOID SCREEN, URINE NEGATIVE (NEGATIVE); COCAINE SCREEN URINE NEGATIVE (NEGATIVE); HYALINE CASTS, URINE 0-2 /LPF; METHADONE STAT NEGATIVE (NEGATIVE); METHAMPHETAMINE SCREEN URINE S NEGATIVE (NEGATIVE); OPIATE SCREEN URINE NEGATIVE (NEGATIVE); OXYCODONE STAT NEGATIVE (NEGATIVE); PROPOXYPHENE STAT NEGATIVE (NEGATIVE); TRICYCLIC ANTIDEPRESSANTS SCRE NEGATIVE (NEGATIVE)
[2019-01-03] MEDS ORDERED: fentaNYL INJECTION 100 MCG/2 ML AMP IVP ONE (01:45)
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
== END 2019-01-03 02:10 | disposition short-term general hospital (02) ==
LOC: EDUNIT# 23:59 → ER 01-03 00:01
DX: S61.411A Laceration without foreign body of right hand, initial encounter (principal); S01.81XA Laceration without foreign body of other part of head, initial encounter; S82.301B Unspecified fracture of lower end of right tibia, initial encounter for open fracture type I or II; S82.451B Displaced comminuted fracture of shaft of right fibula, initial encounter for open fracture type I or II; I10 Essential (primary) hypertension; F32.9 Major depressive disorder, single episode, unspecified; F41.9 Anxiety disorder, unspecified; F17.210 Nicotine dependence, cigarettes, uncomplicated; R40.2132 Coma scale, eyes open, to sound, at arrival to emergency department; R40.2252 Coma scale, best verbal response, oriented, at arrival to emergency department; R40.2362 Coma scale, best motor response, obeys commands, at arrival to emergency department; V89.2XXA Person injured in unspecified motor-vehicle accident, traffic, initial encounter
CPT/HCPCS: 51702; 71045; 73590; 80306; 81000; 85027; 90471; 90715; 93041; 96365; 96375; 96376

== ENCOUNTER 2019-02-19 13:00 | Outpatient (CLI) | payer OTHER, MEDICAID ==
[~2019-02-19] VITALS: Ht 165 cm; Wt 113.3 kg
[2019-02-19 13:17] VITALS: BP 107/65
[2019-02-19] MEDS ORDERED: ERTAPENEM IV NR (13:30)
[2019-02-19] MEDS ORDERED: NS IV NR (13:30)
== END 2019-02-19 14:30 | disposition home or self-care (01) ==
LOC: SDC 13:00
PROVIDERS: ATTEND Internal Medicine Infectious Disease
DX: S82.891A Other fracture of right lower leg, initial encounter for closed fracture (principal); M00.9 Pyogenic arthritis, unspecified
CPT/HCPCS: 96365

== ENCOUNTER 2019-03-14 18:50 | Emergency (ER) | payer MEDICAID, OTHER ==
[~2019-03-14] VITALS: Ht 165 cm; Wt 113.3 kg
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
[2019-03-14 20:50] VITALS: BP 121/74
== END 2019-03-14 20:53 | disposition home or self-care (01) ==
LOC: EDUNIT# 18:50 → ER 18:51
DX: Z45.2 Encounter for adjustment and management of vascular access device (principal); I10 Essential (primary) hypertension; F41.9 Anxiety disorder, unspecified; F32.9 Major depressive disorder, single episode, unspecified; Z88.1 Allergy status to other antibiotic agents
CPT/HCPCS: 99281

== ENCOUNTER → 2019-06-25 | Outpatient (CLI) | payer MEDICAID ==
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
== END ==
LOC: RAD 10:58
PROVIDERS: ATTEND Orthopaedic Surgery
DX: S82.201 Unspecified fracture of shaft of right tibia (principal); S82.401 Unspecified fracture of shaft of right fibula; S52.231D Displaced oblique fracture of shaft of right ulna, subsequent encounter for closed fracture with routine healing; V89.2XXD Person injured in unspecified motor-vehicle accident, traffic, subsequent encounter; Z98.890 Other specified postprocedural states; Z87.81 Personal history of (healed) traumatic fracture
CPT/HCPCS: 73090; 73130; 73610

== ENCOUNTER → 2019-08-13 | Outpatient (CLI) | payer OTHER, MEDICAID ==
[2019-08-13 18:36] LABS: ALANINE AMINOTRANSFERASE 14 U/L (0-55); ALBUMIN 3.8 GM/DL (3.2-4.5); ALKALINE PHOSPHATASE 96 U/L (40-136); BILIRUBIN,TOTAL 0.4 MG/DL (0.1-1.0); BUN/CREATININE RATIO 19; CALCIUM 9.3 MG/DL (8.5-10.1); CARBON DIOXIDE 21 MMOL/L (21-32); CHLORIDE 103 MMOL/L (98-107); CREATININE SERUM 0.72 MG/DL (0.60-1.30); GFR ESTIMATED > 60; GLUCOSE 84 MG/DL (70-105); POTASSIUM 4.3 MMOL/L (3.6-5.0); SODIUM 137 MMOL/L (135-145); TOTAL PROTEIN 6.6 GM/DL (6.4-8.2)
== END ==
LOC: GIR 17:35
PROVIDERS: ATTEND Orthopaedic Surgery
DX: Z01.89 Encounter for other specified special examinations (principal)
CPT/HCPCS: 80053; 86141

== ENCOUNTER 2019-09-24 05:54 | Outpatient (CLI) | payer MEDICAID ==
[~2019-09-24] VITALS: Ht 170.2 cm; Wt 95.0 kg
== END 2019-09-24 14:34 | disposition home or self-care (01) ==
LOC: PREOP 05:54
PROVIDERS: ATTEND Surgery
DX: Z01.818 Encounter for other preprocedural examination (principal)

== ENCOUNTER 2019-10-01 08:07 | Day surgery (SDC) | payer MEDICAID ==
[~2019-10-01] VITALS: Ht 170.2 cm; Wt 95.0 kg
[2019-10-01] MEDS ORDERED: LACTATED RINGERS 1,000 ML IV STA (08:22)
[2019-10-01] MEDS ORDERED: LACTATED RINGERS 1,000 ML IV ONE (08:27)
--- NOTE | 2019-10-01 08:28 | Progress Note-Pre Operative ---
Pre-Operative Progress Note H&P Reviewed The H&P was reviewed, patient examined and no changes noted. Time Seen by Provider: 08:22 Date H&P Reviewed: Oct 01, 2019 Time H&P Reviewed: 08:23 Pre-Operative Diagnosis: Rectal pain, rectal bleed MERCED MIDDLETON DO Oct 01, 2019 08:28
[2019-10-01 08:45] VITALS: BP 125/89
[2019-10-01] MEDS ORDERED: PROPOFOL INJECTION 50 ML IV ONE ×2 (08:48→09:08)
[2019-10-01] MEDS ORDERED: MIDAZOLAM 2 MG/2 ML (VERSED) VIAL ONE (08:48)
[2019-10-01 09:25] VITALS: BP 101/60
--- NOTE | 2019-10-01 09:29 | Progress Note-Post Operative ---
Post-Operative Progess Note Surgeon (s)/Electrical Transmission Engineer (s) Surgeon MERCED MIDDLETON DO Electrical Transmission Engineer: Nichole Kaba Pre-Operative Diagnosis Rectal pain, rectal bleed Post-Operative Diagnosis Melanosis coli Desc colon polyp int hemorrhoids anal fissure Procedure & Operative Findings Date of Procedure 10/01/19 Procedure Performed/Findings Colon with snare Colon with cold bx Anesthesia Type IV sedation by SHIPWRIGHT HELPER Estimated Blood Loss Estimated blood loss (mL): scant Specimens/Packing Specimens Removed colon bx Desc colon polyp MERCED MIDDLETON DO Oct 01, 2019 09:29
[2019-10-01 09:30] VITALS: BP 104/65
--- NOTE | 2019-10-01 09:31 | Endoscopy Discharge Instruct ---
Endo Procedure/Findings Findings 1.: Polyp 2.: Internal Hemorrhoids 3.: Other Findings (Melanosis Coli, Anal Fissure) Discharge Instructions - Activity: You might feel a little sleepy until tomorrow. This is due to the medicine you received to relax you. Until tomorrow, you should: NOT drive a car, operate machinery or power tools. NOT drink any alcoholic beverages. NOT make any important decisions or sign importortant papers. Do not return to work until tomorrow, unless otherwise instructed. Resume previous activities tomorrow. Diet: Start by taking liquids. If you tolerate liquids, advance to solid food. make an appointment for one week 1.: Colonscopy in 5 years Notify Physician - If you experience excessive bleeding, unusual abdominal pain, fever, or chest pain, contact your doctor immediately. MERCED MIDDLETON DO Oct 01, 2019 09:31
[2019-10-01 09:35] VITALS: BP 108/72
[2019-10-01] MEDS ORDERED: ONDANSETRON 4 MG/2 ML (SDV) Z0FRAN IVP ONE (09:35)
[2019-10-01] MEDS ORDERED: ONDANSETRON 4 MG/2 ML (SDV) Z0FRAN ONE (09:38)
[2019-10-01 10:05] VITALS: BP 116/74
--- NOTE | 2019-10-01 10:19 | Anesthesia-General Post-Op ---
MAC Patient Condition Mental Status/LOC: Same as Preop Cardiovascular: Satisfactory Nausea/Vomiting: Absent Respiratory: Satisfactory Pain: Controlled Complications: Absent Post Op Complications Complications None Follow Up Care/Instructions Patient Instructions None needed. Anesthesiology Discharge Order Discharge Order Patient is doing well, no complaints, stable vital signs, no apparent adverse anesthesia problems. No complications reported per nursing. LJ ZULETA CRNA Oct 01, 2019 10:19
[2019-10-01 10:25] VITALS: BP 116/74
--- NOTE | 2019-10-02 02:04 | OPERATIVE REPORT ---
DATE OF SERVICE: PREOPERATIVE DIAGNOSES: 1. Rectal pain. 2. Rectal bleed. POSTOPERATIVE DIAGNOSES: 1. Rectal bleed. 2. Anal fissure. 3. Melanosis coli. 4. Descending colon polyp. 5. Internal hemorrhoids. PROCEDURES: 1. Colonoscopy with snare polypectomy. 2. Colonoscopy with cold biopsy. SURGEON: Julius Tidwell DO. DEGREASING WHEEL OPERATOR: Nichole Kaba MS3. ANESTHESIA: IV sedation by the BENEFITS SALES CONSULTANT. SPECIMEN: Random biopsy from the colon for melanosis and then a descending colon polyp. BLOOD LOSS: Scant. FLUIDS: Per anesthesia. POSTOPERATIVE CONDITION: Stable. INDICATION FOR PROCEDURE: The patient is a 38-year-old female who has been having rectal pain, rectal bleeding, and needed a workup. FINDINGS: The patient had a large anal fissure. She also noted some melanosis coli and then found the descending colon polyp, took a picture and then snared this. She also had some mild internal hemorrhoids. PROCEDURE NOTE: After informed consent was obtained, the patient was brought to the endoscopy suite, placed in bed in left lateral decubitus position. She was administered IV sedation by the BENEFITS SALES CONSULTANT who then monitored her vitals the entire time, heart rate, blood pressure, and pulse ox and the scope was inserted, pushed all the way into about 140 cm, able to get to the cecum. On the way in, noted some melanosis coli, took a picture of this in the cecum, took a picture of appendiceal orifice, noted ileocecal valve, and then slowly withdrew the scope insufflating to look circumferentially at the bronson looking the cecum, up the ascending colon to the hepatic flexure, and then down the transverse colon. Saw some melanosis, elected to do a biopsy of this to confirm this diagnosis and then continued down to the splenic flexure, then into the descending colon. In the descending colon, saw relatively large polyp, able to get a snare around this and then removed it completely with a snare. Suctioned this up, to be sent to pathology and then continued down the descending colon into the sigmoid, finally into the rectum, retroflexed in rectal vault, saw some very minimal internal hemorrhoids, took a picture of this and also carefully everted the anus and took a picture of her large anal fissure. The patient tolerated the procedure and was recovered in endoscopy suite. Job ID: [id number] DocumentID: [id number] Dictated Date: 10/01/2019 15:33:32 Banking Center Manager Date: 10/02/2019 02:03:26 Dictated By: JULIUS TIDWELL DO
== END 2019-10-01 10:25 | disposition home or self-care (01) ==
LOC: ENDO 08:07
PROVIDERS: ATTEND Surgery
DX: K60.2 Anal fissure, unspecified (principal); D12.4 Benign neoplasm of descending colon; K64.8 Other hemorrhoids; K63.89 Other specified diseases of intestine; F32.9 Major depressive disorder, single episode, unspecified; F41.9 Anxiety disorder, unspecified; I10 Essential (primary) hypertension; E66.9 Obesity, unspecified; Z68.32 Body mass index [BMI] 32.0-32.9, adult; F17.210 Nicotine dependence, cigarettes, uncomplicated; Z87.19 Personal history of other diseases of the digestive system; Z88.1 Allergy status to other antibiotic agents; Z79.899 Other long term (current) drug therapy
CPT/HCPCS: 84703; 88305

== ENCOUNTER 2020-08-24 09:45 | Inpatient (IN) | payer MEDICAID ==
[~2020-08-24] VITALS: Ht 167 cm; Wt 95.6 kg
[~2020-08-24 09:45] MED LIST changes: -OXYC-471 PO; +OXYC1TAB11 PO; -SULF1TAB35 PO; +SULF1TAB38 PO
--- NOTE | 2020-08-24 10:24 | Diagnostic Imaging Report ---
EXAMINATION: Chest 1 view HISTORY: Dyspnea. Covid positive. COMPARISON: 01/03/2019. FINDINGS: Patchy opacities are seen in the mid and lower lungs bilaterally. No large pleural effusion or pneumothorax. The cardiac silhouette is unremarkable. No acute osseous abnormalities. IMPRESSION: 1. Bilateral patchy opacities in the mid and lower lungs, concerning for multifocal pneumonia. No pleural effusion. Dictated by: Dictated on workstation # [id number]
[2020-08-24 10:43] LABS: BASOPHILS % (AUTO) 0 % (0-10); EOSINOPHILS % (AUTO) 0 % (0-10); HEMATOCRIT 40 % (35-52); HEMOGLOBIN 13.2 g/dL (11.5-16.0); LYMPHOCYTES % (AUTO) 19 % (12-44); MEAN CORPUSCULAR HEMOGLOBIN 28 pg (25-34); MEAN CORPUSCULAR HGB CONC 33 g/dL (32-36); MEAN CORPUSCULAR VOLUME 85 fL (80-99); MEAN PLATELET VOLUME 9.8 fL (9.0-12.2); MONOCYTES # (AUTO) 0.2 10^3/uL (0.0-1.0); MONOCYTES % (AUTO) 3 % (0-12); NEUTROPHILS # (AUTO) 4.1 10^3/uL (1.8-7.8); NEUTROPHILS % (AUTO) 77 % (42-75); PLATELET COUNT 242 10^3/uL (130-400); WHITE BLOOD COUNT 5.4 10^3/uL (4.3-11.0)
[2020-08-24] MEDS ORDERED: ACETAMINOPHEN 500 MG TAB (TYLENOL) ONE (10:43)
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
[2020-08-24] MEDS ORDERED: LACTATED RINGERS 1,000 ML IV ONE (10:45)
[2020-08-24] MEDS ORDERED: ONDANSETRON 4 MG/2 ML (SDV) Z0FRAN IVP ONE ×2 (10:45→12:15)
[2020-08-24] MEDS ORDERED: RT-ALBUTEROL INHALER HFA (VENTOLIN HFA) 18 GM IH ONE (10:48)
[2020-08-24] MEDS: ACETAMINOPHEN 500 MG TAB (TYLENOL) PO STA ×2 (10:50→11:17)
[2020-08-24] MEDS: IBUPROFEN 800 MG (MOTRIN) TAB PO STA ×2 (10:51→11:17)
[2020-08-24 10:59] LABS: ALBUMIN 3.6 GM/DL (3.2-4.5); CHLORIDE 102 MMOL/L (98-107); POTASSIUM 3.8 MMOL/L (3.6-5.0); SODIUM 136 MMOL/L (135-145)
[2020-08-24 11:00] LABS: CALCIUM 8.5 MG/DL (8.5-10.1); ERYTHROCYTE SEDIMENTATION RATE 55 MM/HR (0-20)
[2020-08-24] MEDS ORDERED: IBUPROFEN SUSP 100MG/5ML (MOTRIN) UDC PO ONE (11:00)
[2020-08-24] MEDS ORDERED: KETOROLAC 30 MG/ML VIAL IVP ONE (11:00)
[2020-08-24] MEDS ORDERED: ENOXAPARIN 40 MG/0.4 ML (LOVENOX) SYR SC SCH ×2 (11:00→14:00)
[2020-08-24] MEDS ORDERED: APAP 325 MG/10.15 ML LIQ (TYLENOL) UDC PO ONE (11:00)
[2020-08-24 11:01] LABS: GLUCOSE 133 MG/DL (70-105); TOTAL PROTEIN 7.1 GM/DL (6.4-8.2)
[2020-08-24 11:03] LABS: BILIRUBIN,TOTAL 0.3 MG/DL (0.1-1.0); CARBON DIOXIDE 20 MMOL/L (21-32)
[2020-08-24 11:05] LABS: ALKALINE PHOSPHATASE 71 U/L (40-136); CREATININE SERUM 0.92 MG/DL (0.60-1.30); GFR ESTIMATED > 60
[2020-08-24 11:06] LABS: BUN/CREATININE RATIO 9
[2020-08-24 11:08] LABS: ALANINE AMINOTRANSFERASE 13 U/L (0-55); CREATINE KINASE 36 U/L (29-168); MAGNESIUM 1.7 MG/DL (1.6-2.4)
[2020-08-24 11:23] LABS: CREATINE KINASE MB 0.1 NG/ML (<6.6)
[2020-08-24 11:43] LABS: BILIRUBIN,URINE NEGATIVE (NEGATIVE); CLARITY,URINE CLEAR; COLOR,URINE YELLOW; GLUCOSE, URINE (UA) NEGATIVE (NEGATIVE); KETONES,URINE NEGATIVE (NEGATIVE); LEUKOCYTE ESTERASE ,URINE NEGATIVE (NEGATIVE); NITRITE,URINE NEGATIVE (NEGATIVE); PH,URINE 6.5 (5-9); PROTEIN,URINE 3+ (NEGATIVE)
[2020-08-24] MEDS ORDERED: ENOXAPARIN 40 MG/0.4 ML (LOVENOX) SYR SC ONE (11:45)
[2020-08-24] MEDS ORDERED: AZITHROMYCIN INJECTION 500 MG in NS (IVPB) 250 ML IV ONE (11:45)
[2020-08-24] MEDS ORDERED: PIPERACILLIN SODIUM/TAZOBACTAM 4.5 GM in NS (IVPB) 100 ML IV ONE (11:45)
[2020-08-24 11:50] LABS: BACTERIA,URINE TRACE /HPF
[2020-08-24 11:58] LABS: AMPHETAMINE SCREEN, URINE NEGATIVE (NEGATIVE); BARBITURATE SCREEN URINE NEGATIVE (NEGATIVE); BENZODIAZEPINES SCREEN URINE NEGATIVE (NEGATIVE); CANNABINOID SCREEN, URINE NEGATIVE (NEGATIVE); COCAINE SCREEN URINE NEGATIVE (NEGATIVE); METHADONE STAT NEGATIVE (NEGATIVE); METHAMPHETAMINE SCREEN URINE S NEGATIVE (NEGATIVE); OPIATE SCREEN URINE NEGATIVE (NEGATIVE); OXYCODONE STAT NEGATIVE (NEGATIVE); PROPOXYPHENE STAT NEGATIVE (NEGATIVE); TRICYCLIC ANTIDEPRESSANTS SCRE NEGATIVE (NEGATIVE)
[2020-08-24 13:35] VITALS: BP 116/75
[2020-08-24] MEDS ORDERED: APAP 325 MG/10.15 ML LIQ (TYLENOL) UDC PO PRN (13:45)
[2020-08-24] MEDS ORDERED: RT-ALBUTEROL INHALER HFA (VENTOLIN HFA) 18 GM IH PRN (13:45)
[2020-08-24] MEDS ORDERED: RT-ALBUTEROL INHALER HFA (VENTOLIN HFA) 18 GM IH SCH (14:00)
[2020-08-24] MEDS ORDERED: PIPERACILLIN/TAZO 4.5 GM/NS 100 ML IV SCH ×2 (14:00)
[2020-08-24] MEDS: D5 1/2 NS W/KCL 20 MEQ/L 1,000 ML IV SCH ×2 (14:17→21:58)
[2020-08-24 16:00] VITALS: BP 95/66
[2020-08-24] MEDS: RT-ALBUTEROL INHALER HFA (VENTOLIN HFA) 18 GM IH SCH ×2 (18:16→21:30)
[2020-08-24 20:14] VITALS: BP 108/72
[2020-08-24] MEDS: IBUPROFEN SUSP 100MG/5ML (MOTRIN) UDC PO PRN (21:22)
[2020-08-24] MEDS: PIPERACILLIN/TAZO 4.5 GM/NS 100 ML IV SCH ×2 (21:22)
[2020-08-24] MEDS: ONDANSETRON 4 MG/2 ML (SDV) Z0FRAN IV PRN (21:23)
[2020-08-24] MEDS: ENOXAPARIN 40 MG/0.4 ML (LOVENOX) SYR SC SCH (23:44)
[2020-08-24 23:56] VITALS: BP 104/68
[2020-08-25] MEDS: D5 1/2 NS W/KCL 20 MEQ/L 1,000 ML IV SCH (01:30)
[2020-08-25] MEDS: RT-ALBUTEROL INHALER HFA (VENTOLIN HFA) 18 GM IH SCH ×6 (02:12→23:21)
[2020-08-25] MEDS: PIPERACILLIN/TAZO 4.5 GM/NS 100 ML IV SCH ×6 (03:53→20:07)
[2020-08-25] MEDS: ONDANSETRON 4 MG/2 ML (SDV) Z0FRAN IV PRN (03:54)
[2020-08-25 04:06] LABS: BASOPHILS % (AUTO) 1 % (0-10); EOSINOPHILS % (AUTO) 0 % (0-10); HEMATOCRIT 39 % (35-52); HEMOGLOBIN 12.3 g/dL (11.5-16.0); LYMPHOCYTES # (AUTO) 0.6 10^3/uL (1.0-4.0); LYMPHOCYTES % (AUTO) 26 % (12-44); MEAN CORPUSCULAR HEMOGLOBIN 28 pg (25-34); MEAN CORPUSCULAR HGB CONC 31 g/dL (32-36); MEAN CORPUSCULAR VOLUME 89 fL (80-99); MEAN PLATELET VOLUME 10.1 fL (9.0-12.2); MONOCYTES # (AUTO) 0.1 10^3/uL (0.0-1.0); MONOCYTES % (AUTO) 6 % (0-12); NEUTROPHILS # (AUTO) 1.5 10^3/uL (1.8-7.8); NEUTROPHILS % (AUTO) 67 % (42-75); PLATELET COUNT 253 10^3/uL (130-400); WHITE BLOOD COUNT 2.2 10^3/uL (4.3-11.0)
[2020-08-25 04:15] LABS: ALBUMIN 3.3 GM/DL (3.2-4.5); POTASSIUM 3.8 MMOL/L (3.6-5.0)
[2020-08-25 04:16] LABS: CALCIUM 8.2 MG/DL (8.5-10.1)
[2020-08-25 04:18] LABS: TOTAL PROTEIN 6.6 GM/DL (6.4-8.2)
[2020-08-25 04:19] LABS: BILIRUBIN,TOTAL 0.2 MG/DL (0.1-1.0); SMEAR SCAN COMMENT YES
[2020-08-25 04:21] LABS: CREATININE SERUM 1.04 MG/DL (0.60-1.30)
[2020-08-25 05:00] VITALS: BP 110/64
--- NOTE | 2020-08-25 05:57 | History & Physical-Hospitalist ---
History of Present Illness HPI/Chief Complaint CC: SOB with fever HPI: This is a 39yoWF clinic Pt of [facility] who is unvaccinated against Covid-19 who presented with fever and chills and SOB found to have Covid-19 pneumonia to the [place] ER. Currently Pt is feeling about the same, she is not using her IS as instructed. Pulmonology will be consulted, we will also heplock her IV fluid, restart her Decadron of 6 mg daily and will watch for increasing oxygen requirements since she has gone from two liters to five liters. We will go ahead and initiate a regular diet. Source: patient Exam Limitations: clinical condition Date Seen 08/25/20 Time Seen by a Provider: 11:00 Attending Physician Sierra Albert DO [facility] Referring Physician Date of Admission Aug 24, 2020 at 11:30 Home Medications & Allergies Home Medications Reviewed patient Home Medication Reconciliation performed by pharmacy medication reconciliations meter technician and/or nursing. Patients Allergies have been reviewed. Allergies Allergies Coded Allergies ceftriaxone (Verified Allergy, Mild, rash, 08/24/20) Past Qzjwntw-Ypvodx-Xszhdl Hx Patient Social History Marrital Status: single Employed/Student: unemployed Tobacco Use?: Yes Tobacco type used: Cigarettes Smoking Status: Current Everyday Smoker Use of E-Cig and/or Vaping dev: Yes Substance use?: No Substance frequency: Couple times a week Alcohol Use?: Yes Alcohol Frequency: Several times a month Seasonal Allergies Seasonal Allergies: Yes Current Status Advance Directives: No Communicates: Verbally Primary Language: Montenegrin Preferred Spoken Language: Montenegrin Is interpretation needed?: No Past Medical History Surgeries: Orthopedic Currently Using CPAP: No Currently Using BIPAP: No Hypertension Sexually Transmitted Disease: No HIV/AIDS: No Bladder Infection Hemorrhoids, Polyps Anxiety, Depression Blood Disorders: No Adverse Reaction/Blood Tranf: No Review of Systems Constitutional: see HPI Respiratory: cough, dyspnea on exertion, phlegm, short of breath Physical Exam Physical Exam Vital Signs Vital Signs - First Documented 08/24/20 08/24/20 08/24/20 09:55 10:30 13:35 Temp 39.2 Pulse 109 Resp 16 B/P (MAP) 138/93 (108) Pulse Ox 92 O2 Delivery Room Air O2 Flow Rate 2.00 FiO2 28 Capillary Refill : Less Than 3 Seconds Height, Weight, BMI Height: 5'5.00" Weight: 218lbs. 0.0oz. 98.544601wv; 36.89 BMI Method:Stated General Appearance: No Apparent Distress, Anxious, Chronically ill, Obese Eyes: Right Eye Normal Inspection, Right Eye PERRL HEENT: PERRL/EOMI, Normal ENT Inspection, Pharynx Normal, Moist Mucous Membra kin Neck: Full Range of Motion, Normal Inspection, Non Tender Respiratory: Chest Non Tender, No Accessory Muscle Use, No Respiratory Distress, Decreased Breath Sounds, Rales Cardiovascular: Regular Rate, Rhythm, No Edema, No Gallop, No JVD, No Murmur, Normal Peripheral Pulses Gastrointestinal: Normal Bowel Sounds, No Organomegaly, No Pulsatile Mass, Non Tender, Soft Back: Normal Inspection, No CVA Tenderness, No Vertebral Tenderness Extremity: Normal Capillary Refill, Normal Inspection, Normal Range of Motion, Non Tender, No Calf Tenderness, No Pedal Edema Neurologic/Psychiatric: Alert, Oriented x3, No Motor/Sensory Deficits, Normal Mood/Affect Skin: Normal Color, Warm/Dry Lymphatic: No Adenopathy Results Results/Procedures Labs Laboratory Tests 08/24/20 10:30 08/25/20 03:31 Patient resulted labs reviewed. Assessment/Plan Admission Diagnosis Assessment: COVID-19 pneumonia Hypoxia Hypertension Plan: Pulmonary consult Monitor closely Admission Status: Inpatient Order (span 2 midnights) Reason for Inpatient Admission: COVID-19 Diagnosis/Problems Diagnosis/Problems (1) Pneumonia due to COVID-19 virus Status: Acute (2) Acute respiratory failure with hypoxia Status: Acute (3) Smoker Status: Acute SIERRA ALBERT DO Aug 25, 2020 05:57
[2020-08-25 08:00] VITALS: BP 112/74
[2020-08-25] MEDS ORDERED: AZITHROMYCIN 500 MG/NS 250 ML IVPB IV SCH ×2 (11:30)
[2020-08-25 12:00] VITALS: BP 108/74
[2020-08-25] MEDS: ENOXAPARIN 40 MG/0.4 ML (LOVENOX) SYR SC SCH ×2 (12:26→22:24)
--- NOTE | 2020-08-25 13:05 | Pulmonary Consultation ---
History of Present Illness History of Present Illness Date Seen by Provider: Aug 25, 2020 Time Seen by Provider: 12:56 Date of Admission 39 F admitted with COVID PNA, CXR shows bilateral opacities, started on chinmay thromycin, Zosyn, Decadron, bid enoxaparin, d dimer 0.73, not on remdesivir due to time frame, gets out of breath, Not much cough now, no hemoptysis, some chest pain, Has lost smell/tense but improving COVID + on 08/18, Sx started one day before SOB, chest pain, body aches, loss taste/smell, has not been vaccinated Smoker 1 PPD SpO2 on 5 lpm NC 95% WBC has dropped to 2.2 Allergies and Home Medications Allergies Coded Allergies: ceftriaxone (Verified Allergy, Mild, rash, 08/24/20) Home Medications Acetaminophen 325 Mg Tablet, 650 MG PO Q6H PRN for PAIN-MILD (1-4), (Reported) TAKES 2 (325MG) TABLETS Amlodipine Besylate 5 Mg Tablet, 5 MG PO HS, (Reported) Duloxetine HCl 30 Mg Capsule.dr, 60 MG PO HS, (Reported) TAKES 2 (30MG) CAPSULES Lisinopril/Hydrochlorothiazide 1 Each Tablet, 1 EACH PO HS, (Reported) Past Medical/Social/Family Hx Patient Social History Tobacco Use?: Yes Tobacco type used: Cigarettes Smoking Status: Current Everyday Smoker Use of E-Cig and/or Vaping dev: Yes Substance use?: No Substance frequency: Couple times a week Alcohol Use?: Yes Alcohol Frequency: Several times a month Current Status Advance Directives: No Communicates: Verbally Primary Language: Georgian Preferred Spoken Language: Georgian Is interpretation needed?: No Review of Systems Constitutional: no symptoms reported Respiratory: cough, dyspnea on exertion Cardiovascular: chest pain Sepsis Event Evaluation Height, Weight, BMI Height: 5'5.00" Weight: 218lbs. 0.0oz. 98.480818zq; 36.89 BMI Method:Stated Exam Exam Patient acknowledged, consented, and participated in this virtual visit which was conducted using real time audio/video Vital Signs Date Time Temp Pulse Resp B/P (MAP) Pulse Ox O2 Delivery O2 Flow Rate FiO2 08/25/20 12:00 35.9 95 18 108/74 (85) 95 Nasal Cannula 5.00 08/25/20 10:52 Nasal Cannula 3.00 08/25/20 10:50 96 Nasal Cannula 5.00 08/25/20 08:00 35.4 77 18 112/74 (87) 92 Nasal Cannula 5.00 08/25/20 07:29 96 Nasal Cannula 5.00 08/25/20 07:00 64 08/25/20 05:00 36.8 71 20 110/64 (79) 91 Nasal Cannula 5.00 08/25/20 02:12 94 Nasal Cannula 5.00 08/25/20 01:00 68 08/24/20 23:56 36.4 69 20 104/68 (80) 92 Nasal Cannula 5.00 08/24/20 20:48 93 5.00 08/24/20 20:14 36.4 80 20 108/72 (84) 88 Nasal Cannula 3.00 08/24/20 19:00 89 08/24/20 18:16 93 Nasal Cannula 2.00 08/24/20 17:38 75 08/24/20 16:00 36.8 88 20 95/66 (76) 93 Nasal Cannula 3.00 08/24/20 14:44 92 Nasal Cannula 3.00 08/24/20 13:50 Nasal Cannula 2.00 08/24/20 13:35 39.2 97 92 28 08/24/20 13:00 97 16 116/75 92 Nasal Cannula 2.00 I & O 08/25/20 07:00 Intake Total 2550 ml Balance 2550 ml Height & Weight Height: 5'5.00" Weight: 218lbs. 0.0oz. 98.736087rk; 36.89 BMI Method:Stated General Appearance: Mild Distress Respiratory: Rhonci, Other (sounds not clearly heard) Cardiovascular: Regular Rate, Rhythm Capillary Refill: Less Than 3 Seconds Gastrointestinal: normal bowel sounds, non tender, soft Extremity: Non Tender, No Pedal Edema Results Lab Laboratory Tests 08/24/20 10:30 08/25/20 03:31 Assessment/Plan Assessment/Plan mild COVID PNA, continue with above meds and watch SpO2, should improve Time spent with patient (mins): 20 MONCHO DUNAWAY MD Aug 25, 2020 13:05
[2020-08-25] MEDS ORDERED: DULO30CA49 PO (13:42)
[2020-08-25] MEDS ORDERED: AMLO-250 PO (13:42)
[2020-08-25] MEDS ORDERED: ACET325T38 PO (13:42)
[2020-08-25] MEDS ORDERED: LISI1TAB26 PO (13:42)
[2020-08-25 16:15] VITALS: BP 104/70
[2020-08-25] MEDS ORDERED: diphenhydrAMINE 25 MG TAB (BENADRYL) PO PRN (18:45)
[2020-08-25] MEDS ORDERED: CALCIUM CARBONATE 500 MG (TUMS) TAB.CHEW PO PRN (18:45)
[2020-08-25] MEDS ORDERED: DOCUSATE SODIUM 100 MG (COLACE) CAP PO PRN (18:45)
[2020-08-25] MEDS ORDERED: LOPERAMIDE 2 MG (IMODIUM) TABLET PO PRN (18:45)
[2020-08-25 19:40] VITALS: BP 119/62
[2020-08-25] MEDS: polyethylene glycoL POWDER 17 GM (MIRALAX) PACK PO SCH (20:06)
[2020-08-25] MEDS: SENNA W/DOCUSATE (SENOKOT S) TABLET PO SCH (20:07)
[2020-08-25] MEDS: ALPRAZolam 0.25 MG (XANAX) TAB PO PRN (20:07)
[2020-08-25] MEDS: ZOLPIDEM 5 MG (AMBIEN) TAB PO SCH (21:52)
[2020-08-25] MEDS: ACETAMINOPHEN 325 MG TABLET PO PRN (21:52)
[2020-08-25 23:30] VITALS: BP 134/87
[2020-08-25] MEDS: HYDROcodone/APAP 5 MG/325 MG (LORTAB) TAB PO PRN (23:40)
[2020-08-26] VITALS (14 sets, daily range): BP systolic 106–161; BP diastolic 64–104
[2020-08-26] MEDS: PIPERACILLIN/TAZO 4.5 GM/NS 100 ML IV SCH ×6 (03:52→22:55)
[2020-08-26] MEDS: RT-ALBUTEROL INHALER HFA (VENTOLIN HFA) 18 GM IH SCH ×6 (05:08→22:30)
--- NOTE | 2020-08-26 05:22 | Progress Note - Hospitalist ---
Subjective HPI/CC On Admission Date Seen by Provider: Aug 26, 2020 Time Seen by Provider: 10:00 CC: SOB with fever HPI: This is a 39yoWF clinic Pt of [facility] who is unvaccinated against Covid-19 who presented with fever and chills and SOB found to have Covid-19 pneumonia to the [place] ER. Currently Pt is feeling about the same, she is not using her IS as instructed. Pulmonology will be consulted, we will also heplock her IV fluid, restart her Decadron of 6 mg daily and will watch for increasing oxygen requirements since she has gone from two liters to five liters. We will go ahead and initiate a regular diet. Subjective/Events-last exam Pt having significant fever Zosyn and Azithromycin maintained along with Decadron, and Lovenox If Pt worsens, she will have to go up to the ICU Noncompliant with IS and inhalers Nursing and RT and I have counseled her on the need to be compliant with i ncreasing lung expansion to prevent further decline Review of Systems General: Fatigue, Malaise Pulmonary: Dyspnea, Cough Neurological: Weakness Focused Exam Lactate Level 08/24/20 10:30: Lactic Acid Level 1.18 Objective Exam Vital Signs Vital Signs Date Time Temp Pulse Resp B/P (MAP) Pulse Ox O2 Delivery O2 Flow Rate FiO2 08/26/20 20:37 37.4 80 22 133/74 (93) 87 Nasal Cannula 5.00 08/24/20 13:35 28 Capillary Refill : Less Than 3 Seconds General Appearance: Anxious, Chronically ill, Mild Distress Respiratory: No Respiratory Distress, Accessory Muscle Use, Decreased Breath Sounds Cardiovascular: Regular Rate, Rhythm Neurologic/Psychiatric: Alert, Oriented x3, Depressed Affect Results/Procedures Lab Laboratory Tests 08/26/20 05:47 Patient resulted labs reviewed. Assessment/Plan Assessment and Plan Assess & Plan/Chief Complaint Assessment: COVID-19 pneumonia Hypoxia Hypertension Depression Hypertension Chronic debility Plan: Pulmonary consult Monitor closely 08/26/2020: Patient not compliant with ProAir inhaler or incentive spirometer or prone position Patient declining will transfer to the ICU due to increasing oxygen requirements Diagnosis/Problems Diagnosis/Problems (1) Pneumonia due to COVID-19 virus Status: Acute (2) Acute respiratory failure with hypoxia Status: Acute (3) Smoker Status: Acute KAMINI ELI DO Aug 26, 2020 05:22
[2020-08-26 06:37] LABS: BASOPHILS % (AUTO) 0 % (0-10); EOSINOPHILS % (AUTO) 0 % (0-10); HEMATOCRIT 39 % (35-52); HEMOGLOBIN 11.9 g/dL (11.5-16.0); LYMPHOCYTES # (AUTO) 0.8 10^3/uL (1.0-4.0); LYMPHOCYTES % (AUTO) 9 % (12-44); MEAN CORPUSCULAR HEMOGLOBIN 27 pg (25-34); MEAN CORPUSCULAR HGB CONC 31 g/dL (32-36); MEAN CORPUSCULAR VOLUME 89 fL (80-99); MEAN PLATELET VOLUME 9.5 fL (9.0-12.2); MONOCYTES # (AUTO) 0.3 10^3/uL (0.0-1.0); MONOCYTES % (AUTO) 3 % (0-12); NEUTROPHILS % (AUTO) 88 % (42-75); PLATELET COUNT 252 10^3/uL (130-400); WHITE BLOOD COUNT 9.1 10^3/uL (4.3-11.0)
[2020-08-26] MEDS: ACETAMINOPHEN 325 MG TABLET PO PRN (06:43)
[2020-08-26 06:59] LABS: ALBUMIN 3.1 GM/DL (3.2-4.5); BILIRUBIN,TOTAL 0.2 MG/DL (0.1-1.0); CALCIUM 8.1 MG/DL (8.5-10.1); CREATININE SERUM 1.05 MG/DL (0.60-1.30); POTASSIUM 4.6 MMOL/L (3.6-5.0); TOTAL PROTEIN 6.4 GM/DL (6.4-8.2)
[2020-08-26 07:21] LABS: BAND NEUTROPHILS 11 %; LYMPHOCYTES % (MANUAL) 8 %; MONOCYTES % (MANUAL) 3 %; NEUTROPHILS % (MANUAL) 78 %
--- NOTE | 2020-08-26 08:19 | Diagnostic Imaging Report ---
HISTORY: Covid pneumonia COMPARISON: 08/24/2020 TECHNIQUE: Frontal view of the chest FINDINGS: There are patchy airspace opacities in the lungs bilaterally. Overall aeration appears slightly decreased compared to the prior exam. There is no pleural effusion or pneumothorax. The cardiac silhouette is normal in size. IMPRESSION: 1. Patchy airspace opacities in the lungs bilaterally with mildly decreased aeration compared to the prior exam. Dictated by: Dictated on workstation # [id number]
[2020-08-26] MEDS: polyethylene glycoL POWDER 17 GM (MIRALAX) PACK PO SCH ×2 (08:23→22:01)
[2020-08-26] MEDS: SENNA W/DOCUSATE (SENOKOT S) TABLET PO SCH ×2 (08:23→22:01)
[2020-08-26] MEDS: HYDROcodone/APAP 5 MG/325 MG (LORTAB) TAB PO PRN (08:24)
[2020-08-26] MEDS: AZITHROMYCIN 500 MG/NS 250 ML IVPB IV SCH ×2 (10:50)
[2020-08-26] MEDS: ENOXAPARIN 40 MG/0.4 ML (LOVENOX) SYR SC SCH ×2 (10:50→22:01)
--- NOTE | 2020-08-26 21:14 | Diagnostic Imaging Report ---
INDICATION: Covid positive, cough. COMPARISON: 08/26/2020 FINDINGS: Single view of the chest demonstrates slightly worsening bilateral pulmonary infiltrates. There is no pneumothorax or large effusion. The heart is slightly enlarged. Osseous structures are age-appropriate. IMPRESSION: Slightly worsening bilateral pulmonary infiltrates. Dictated by: Dictated on workstation # [id number]
[2020-08-26] MEDS ORDERED: LORazepam INJ 2 MG/ML (ATIVAN) VIAL IVP PRN (21:45)
[2020-08-26] MEDS: ZOLPIDEM 5 MG (AMBIEN) TAB PO SCH (22:01)
[2020-08-26] MEDS: ALPRAZolam 0.25 MG (XANAX) TAB PO PRN (22:01)
--- NOTE | 2020-08-26 22:44 | Tele-ICU Progress Note ---
Progress Note 39F admitted 08/24 with COVID pna, at that point had been symptomatic since 08/17, COVID+ on 08/18. Has had increasing O2 demand over her hospital course. Did not tolerate albuterol 4 puff but tolerating 2 puffs. Unable to prone. On transfer to ICU went from 5L NC to [id number]%/30L with SpO2 93-95%. Gradually declined into the 87-88% range. Attempted to place BiPap with improvement in SpO2, but patient not tolerating due to severe claustrophobia. CXR at time of transfer to ICU with slight worsening of pulmonary infiltrates when compared tothat morning. - continue current regimen of azithro, zosyn, albuterol, decadron, lovenox 0.5 mg/kg/q12 hr - BiPap for supportive care, ativan for claustrophobia. Will initiate precedex if needed. - Remains high risk for intubation. Focused Exam Lactate Level 08/24/20 10:30: Lactic Acid Level 1.18 Height, Weight, BMI Height: 5'5.00" Weight: 218lbs. 0.0oz. 98.669170eb; 36.89 BMI Method:Stated EVERT WOO MD Aug 26, 2020 22:44
[2020-08-26] MEDS ORDERED: LORazepam INJ 2 MG/ML (ATIVAN) VIAL ONE (23:11)
[2020-08-27] VITALS (27 sets, daily range): BP systolic 99–139; BP diastolic 51–92
[2020-08-27 01:20] LABS: ABG OXYGEN SATURATION 95 % (94-100); ABG PCO2 35 MMHG (35-45); ABG PH 7.43 (7.37-7.43); ABG PO2 72 MMHG (79-93); ABG TCO2 23.6 MMOL/L (21.0-31.0)
[2020-08-27 01:23] LABS: ALLENS TEST YES-POS; INSPIRED O2 45% bi-pap; PATIENT TEMP 37.5; VENTILATOR NO
[2020-08-27] MEDS: RT-ALBUTEROL INHALER HFA (VENTOLIN HFA) 18 GM IH SCH ×6 (02:55→22:40)
[2020-08-27] MEDS: PIPERACILLIN/TAZO 4.5 GM/NS 100 ML IV SCH ×6 (04:14→19:31)
[2020-08-27] MEDS: ALPRAZolam 0.25 MG (XANAX) TAB PO PRN ×2 (05:59→20:26)
--- NOTE | 2020-08-27 06:09 | Progress Note - Hospitalist ---
Subjective HPI/CC On Admission Date Seen by Provider: Aug 27, 2020 Time Seen by Provider: 10:00 CC: SOB with fever HPI: This is a 39yoWF clinic Pt of [facility] who is unvaccinated against Covid-19 who presented with fever and chills and SOB found to have Covid-19 pneumonia to the [facility]. Currently Pt is feeling about the same, she is not using her IS as instructed. Pulmonology will be consulted, we will also heplock her IV fluid, restart her Decadron of 6 mg daily and will watch for increasing oxygen requirements since she has gone from two liters to five liters. We will go ahead and initiate a regular diet. Subjective/Events-last exam Pt required ICU transfer last night Maintain on BiPAP Becoming more compliant with treatment She is actually lying on her left side to help Covid Picc line will be placed New medication Actemra to prevent the progression to ventilator will be initia hector after informed consent obtained Review of Systems General: Fatigue, Malaise Pulmonary: Dyspnea Focused Exam Lactate Level Objective Exam Vital Signs Vital Signs Date Time Temp Pulse Resp B/P (MAP) Pulse Ox O2 Delivery O2 Flow Rate FiO2 08/28/20 05:40 NIV Bilevel 60.00 08/28/20 05:00 45 32 130/81 (97) 93 08/28/20 03:40 65 08/28/20 03:25 36.7 Capillary Refill : Less Than 3 Seconds General Appearance: No Apparent Distress, WD/WN, Chronically ill, Other (On BiPAP) Respiratory: No Accessory Muscle Use, No Respiratory Distress, Decreased Breath Sounds Cardiovascular: Regular Rate, Rhythm Neurologic/Psychiatric: Alert, Oriented x3, No Motor/Sensory Deficits, Normal Mood/Affect Results/Procedures Lab Laboratory Tests 08/27/20 08:45 08/28/20 03:30 Patient resulted labs reviewed. Assessment/Plan Assessment and Plan Assess & Plan/Chief Complaint Assessment: COVID-19 pneumonia Hypoxia Hypertension Depression Hypertension Chronic debility Plan: Pulmonary consult Monitor closely 08/26/2020: Patient not compliant with ProAir inhaler or incentive spirometer or prone position Patient declining will transfer to the ICU due to increasing oxygen requirements 08/27/2020: BiPAP High risk for intubation Actemra to be infused Diagnosis/Problems Diagnosis/Problems (1) Pneumonia due to COVID-19 virus Status: Acute (2) Acute respiratory failure with hypoxia Status: Acute (3) Smoker Status: Acute KAMINI ELI DO Aug 27, 2020 06:09
[2020-08-27] MEDS: polyethylene glycoL POWDER 17 GM (MIRALAX) PACK PO SCH ×2 (08:41→20:34)
[2020-08-27] MEDS: SENNA W/DOCUSATE (SENOKOT S) TABLET PO SCH ×2 (08:41→20:35)
--- NOTE | 2020-08-27 08:42 | Tele-ICU Progress Note ---
Subjective Date Seen by a Provider: Aug 27, 2020 Time Seen by a Provider: 11:10 Subjective/Events-last exam 39 yo F admitted 08/24 with COVID PNA,transferred to MICU yesterday,probably has had for 10 days, increasing oxygen needs On BIPAP 20/09 50% getting pronning CXR from 08/26 shows extensive bilateral infiltrates On Decadron, azithromycin, Zosyn Awake and alert, Is working hard to breathe SpO2 staying in 90's Review of Systems Pulmonary: Dyspnea Sepsis Event Evaluation Height, Weight, BMI Height: 5'5.00" Weight: 218lbs. 0.0oz. 98.906680ay; 36.89 BMI Method:Stated Focused Exam Lactate Level 08/24/20 10:30: Lactic Acid Level 1.18 Exam Exam Patient acknowledged, consented, and participated in this virtual visit which was conducted using real time audio/video Vital Signs Date Time Temp Pulse Resp B/P (MAP) Pulse Ox O2 Delivery O2 Flow Rate FiO2 08/27/20 08:00 37.8 08/27/20 07:12 73 34 94 55.00 08/27/20 06:00 76 120/79 (93) 89 NIV Bilevel 50.00 08/27/20 06:00 77 34 135/85 (102) 94 NIV Bilevel 50.00 08/27/20 04:17 37.2 NIV Bilevel 50.00 08/27/20 04:00 78 38 130/75 (94) 95 NIV Bilevel 55.00 08/27/20 03:18 84 97 55.00 08/27/20 03:00 71 11 131/78 (92) 97 NIV Bilevel 55.00 08/27/20 02:00 68 22 124/77 (93) 95 NIV Bilevel 55.00 08/27/20 01:35 78 22 96 NIV Bilevel 55.00 08/27/20 01:00 78 08/27/20 01:00 78 131/86 (101) 91 NIV Bilevel 45.00 08/27/20 00:00 65 129/86 (100) 95 NIV Bilevel 45.00 08/26/20 23:45 70 131/82 (98) 94 NIV Bilevel 45.00 08/26/20 23:33 NIV Bilevel 45.00 08/26/20 23:09 71 45.00 08/26/20 23:00 72 136/89 (105) 100 Vapotherm 40.00 90.00 08/26/20 22:45 82 130/104 (113) 86 Vapotherm 40.00 90.00 08/26/20 22:37 Vapotherm 40.00 90.00 08/26/20 22:30 75 135/88 (104) 91 Vapotherm 30.00 100.00 08/26/20 22:15 81 137/87 (104) 87 Vapotherm 30.00 100.00 08/26/20 22:00 92 123/80 (94) 90 Vapotherm 30.00 100.00 08/26/20 21:55 91 Vapotherm 25.00 100 08/26/20 21:45 88 125/73 (90) 88 Vapotherm 30.00 100.00 08/26/20 21:42 37.6 86 22 124/86 (99) 91 Vapotherm 30.00 100.00 08/26/20 20:37 37.4 80 22 133/74 (93) 87 Nasal Cannula 5.00 08/26/20 19:00 72 08/26/20 16:20 36.1 79 22 116/64 (81) 91 Nasal Cannula 5.00 08/26/20 14:39 91 Nasal Cannula 5.00 08/26/20 12:45 92 08/26/20 12:00 35.4 99 22 109/71 (84) 91 Nasal Cannula 5.00 08/26/20 11:02 Nasal Cannula 5.00 08/26/20 10:38 83 Nasal Cannula 3.00 08/26/20 09:41 36.7 08/26/20 08:48 94 Nasal Cannula 3.00 I & O 08/27/20 07:00 Intake Total 1890 ml Output Total 1600 ml Balance 290 ml Height & Weight Height: 5'5.00" Weight: 218lbs. 0.0oz. 98.754073nq; 36.89 BMI Method:Stated General Appearance: Anxious, Chronically ill, Mild Distress, Moderate Distress HEENT: PERRL/EOMI, Normal ENT Inspection, Pharynx Normal, Moist Mucous Membr anes Neck: Full Range of Motion, Normal Inspection, Non Tender Respiratory: No Respiratory Distress, Accessory Muscle Use, Decreased Breath Sounds, Rhonci Cardiovascular: Regular Rate, Rhythm Capillary Refill: Less Than 3 Seconds Gastrointestinal: normal bowel sounds, non tender, soft Extremity: Normal Capillary Refill, Normal Inspection, Normal Range of Motion, Non Tender, No Calf Tenderness, No Pedal Edema, Pedal Edema, Other (trace leg edema, has Alonso, will keep, 2 peripheral IV's) Neurologic/Psychiatric: Alert, Oriented x3, Depressed Affect Skin: Normal Color, Warm/Dry Lymphatic: No Adenopathy Results Lab Laboratory Tests 08/26/20 05:47 Assessment/Plan Assessment/Plan Extensive COVID PNA continue decadron, on Xanax Ativan for anxiety d dimer not that high but on bid Lovenox ABG today 7.43//72 on 50% BiPAP, 20/09 will continue Asked RN to call me if SpO2 goes into 80's physical exam is per health services director: Critically Ill Patient Time spent with patient (mins): 20 MONCHO DUNAWAY MD Aug 27, 2020 08:42
[2020-08-27 08:53] LABS: BASOPHILS % (AUTO) 0 % (0-10); EOSINOPHILS % (AUTO) 0 % (0-10); HEMATOCRIT 39 % (35-52); HEMOGLOBIN 12.2 g/dL (11.5-16.0); LYMPHOCYTES % (AUTO) 11 % (12-44); MEAN CORPUSCULAR HEMOGLOBIN 27 pg (25-34); MEAN CORPUSCULAR HGB CONC 31 g/dL (32-36); MEAN CORPUSCULAR VOLUME 88 fL (80-99); MONOCYTES # (AUTO) 0.4 10^3/uL (0.0-1.0); MONOCYTES % (AUTO) 4 % (0-12); NEUTROPHILS % (AUTO) 84 % (42-75); PLATELET COUNT 319 10^3/uL (130-400); WHITE BLOOD COUNT 9.5 10^3/uL (4.3-11.0)
[2020-08-27 09:13] LABS: BUN/CREATININE RATIO 10; CALCIUM 8.7 MG/DL (8.5-10.1); CARBON DIOXIDE 22 MMOL/L (21-32); CHLORIDE 106 MMOL/L (98-107); CREATININE SERUM 0.91 MG/DL (0.60-1.30); GFR ESTIMATED > 60; GLUCOSE 125 MG/DL (70-105); MAGNESIUM 1.8 MG/DL (1.6-2.4); PHOSPHORUS 3.3 MG/DL (2.3-4.7); POTASSIUM 4.2 MMOL/L (3.6-5.0); SODIUM 139 MMOL/L (135-145)
[2020-08-27] MEDS ORDERED: TOCILIZUMAB INJECTION (NON-FOR 800 MG in NS (IVPB) 60 ML IV NR (11:23)
[2020-08-27] MEDS: AZITHROMYCIN 500 MG/NS 250 ML IVPB IV SCH ×2 (11:49)
[2020-08-27] MEDS: ENOXAPARIN 40 MG/0.4 ML (LOVENOX) SYR SC SCH ×2 (11:53→22:08)
[2020-08-27] MEDS: IBUPROFEN SUSP 100MG/5ML (MOTRIN) UDC PO PRN (11:53)
--- NOTE | 2020-08-27 16:49 | Progress Note ---
Standard Progress Note Progress Notes/Assess & Plan Date Seen by a Provider: Aug 27, 2020 Time Seen by a Provider: 16:47 Progress/Assessment & Plan Called by RN as SpO2 in low 90's, RR shallow but in low 30's, on camera not working hard to breathe, HR has dropped in 40's or 50's Not on Precedex to make sure drop in SpO2 and drop in HR not due to acidosis will get ABG MONCHO DUNAWAY MD Aug 27, 2020 16:49
[2020-08-27 19:57] LABS: ABG BASE EXCESS -0.4 MMOL/L (-2.5-2.5); ABG OXYGEN SATURATION 96 % (94-100); ABG PCO2 37 MMHG (35-45); ABG PH 7.41 (7.37-7.43); ABG PO2 75 MMHG (79-93); ABG TCO2 24.9 MMOL/L (21.0-31.0)
[2020-08-27 20:01] LABS: ALLENS TEST YES-POS; INSPIRED O2 60%; PATIENT TEMP 36.3; VENTILATOR NO
[2020-08-27] MEDS: ZOLPIDEM 5 MG (AMBIEN) TAB PO SCH (20:34)
[2020-08-27] MEDS: MELATONIN 3 MG TABLET PO PRN (22:08)
[2020-08-28] VITALS (29 sets, daily range): BP systolic 118–148; BP diastolic 65–97
[2020-08-28] MEDS: ONDANSETRON 4 MG/2 ML (SDV) Z0FRAN IV PRN (00:12)
[2020-08-28] MEDS ORDERED: PROMETHAZINE INJ 25 MG/ML (PHENERGAN) AMP ONE (01:26)
[2020-08-28] MEDS ORDERED: PROMETHAZINE INJ 25 MG/ML (PHENERGAN) AMP IVP ONE (01:30)
[2020-08-28] MEDS: RT-ALBUTEROL INHALER HFA (VENTOLIN HFA) 18 GM IH SCH ×6 (02:00→21:55)
[2020-08-28] MEDS ORDERED: DexMEDEtomidine 250 ML DRIP 250 ML IV SCH (02:45)
[2020-08-28 03:41] LABS: ABG BASE EXCESS 0.5 MMOL/L (-2.5-2.5); ABG OXYGEN SATURATION 98 % (94-100); ABG PCO2 39 MMHG (35-45); ABG PH 7.41 (7.37-7.43); ABG PO2 98 MMHG (79-93); ABG TCO2 25.9 MMOL/L (21.0-31.0)
[2020-08-28 03:42] LABS: ALLENS TEST YES-POS; BASOPHILS % (AUTO) 0 % (0-10); EOSINOPHILS % (AUTO) 0 % (0-10); HEMATOCRIT 37 % (35-52); HEMOGLOBIN 11.6 g/dL (11.5-16.0); LYMPHOCYTES # (AUTO) 0.8 10^3/uL (1.0-4.0); LYMPHOCYTES % (AUTO) 19 % (12-44); MEAN CORPUSCULAR HEMOGLOBIN 27 pg (25-34); MEAN CORPUSCULAR HGB CONC 32 g/dL (32-36); MEAN CORPUSCULAR VOLUME 87 fL (80-99); MEAN PLATELET VOLUME 9.1 fL (9.0-12.2); MONOCYTES # (AUTO) 0.3 10^3/uL (0.0-1.0); MONOCYTES % (AUTO) 6 % (0-12); NEUTROPHILS % (AUTO) 75 % (42-75); PLATELET COUNT 318 10^3/uL (130-400)
[2020-08-28 03:43] LABS: INSPIRED O2 65%; PATIENT TEMP 36.7; VENTILATOR NO
[2020-08-28 03:49] LABS: CALCIUM 8.6 MG/DL (8.5-10.1)
[2020-08-28 03:53] LABS: PHOSPHORUS 3.4 MG/DL (2.3-4.7)
[2020-08-28 03:54] LABS: CREATININE SERUM 0.69 MG/DL (0.60-1.30)
[2020-08-28 03:56] LABS: MAGNESIUM 2.1 MG/DL (1.6-2.4)
[2020-08-28] MEDS: PIPERACILLIN/TAZO 4.5 GM/NS 100 ML IV SCH ×6 (03:58→20:04)
--- NOTE | 2020-08-28 06:32 | Progress Note - Hospitalist ---
Subjective HPI/CC On Admission Date Seen by Provider: Aug 28, 2020 Time Seen by Provider: 11:00 CC: SOB with fever HPI: This is a 39yoWF clinic Pt of [facility] who is unvaccinated against Covid-19 who presented with fever and chills and SOB found to have Covid-19 pneumonia to the [place] [facility]. Currently Pt is feeling about the same, she is not using her IS as instructed. Pulmonology will be consulted, we will also heplock her IV fluid, restart her Decadron of 6 mg daily and will watch for increasing oxygen requirements since she has gone from two liters to five liters. We will go ahead and initiate a regular diet. Subjective/Events-last exam Pt could not tolerate being off BiPAP Will DC Ambien Pressures are 18/10 on 70% BiPAP Patient declines to give me any more details Review of Systems General: Fatigue, Malaise Neurological: Weakness Objective Exam Vital Signs Vital Signs Date Time Temp Pulse Resp B/P (MAP) Pulse Ox O2 Delivery O2 Flow Rate FiO2 08/29/20 04:01 36.4 08/29/20 03:47 97 NIV Bilevel 70 08/29/20 02:49 41 37 60.00 08/29/20 00:00 145/88 (107) Capillary Refill : Less Than 3 Seconds General Appearance: No Apparent Distress, WD/WN, Chronically ill Respiratory: No Accessory Muscle Use, No Respiratory Distress, Decreased Breath Sounds, Other (On BiPAP) Cardiovascular: Regular Rate, Rhythm Neurologic/Psychiatric: Alert, Oriented x3, No Motor/Sensory Deficits, Normal Mood/Affect Results/Procedures Lab Laboratory Tests 08/29/20 02:45 Patient resulted labs reviewed. Assessment/Plan Assessment and Plan Assess & Plan/Chief Complaint Assessment: COVID-19 pneumonia Hypoxia Hypertension Depression Hypertension Chronic debility Plan: Pulmonary consult Monitor closely 08/26/2020: Patient not compliant with ProAir inhaler or incentive spirometer or prone pos ition Patient declining will transfer to the ICU due to increasing oxygen requirements 08/27/2020: BiPAP High risk for intubation Actemra to be infused 08/28/2020: Supportive care BiPAP High risk for intubation Critical Care Critically Ill Patient Diagnosis/Problems Diagnosis/Problems (1) Pneumonia due to COVID-19 virus Status: Acute (2) Acute respiratory failure with hypoxia Status: Acute (3) Smoker Status: Acute ELI,KAMINI DO Aug 28, 2020 06:32
[2020-08-28] MEDS: SENNA W/DOCUSATE (SENOKOT S) TABLET PO SCH ×2 (08:14→20:04)
[2020-08-28] MEDS: polyethylene glycoL POWDER 17 GM (MIRALAX) PACK PO SCH ×2 (08:14→20:04)
--- NOTE | 2020-08-28 11:30 | Tele-ICU Progress Note ---
Subjective Date Seen by a Provider: Aug 28, 2020 Time Seen by a Provider: 11:29 Sepsis Event Evaluation Height, Weight, BMI Height: 5'5.00" Weight: 218lbs. 0.0oz. 98.835440ud; 36.89 BMI Method:Stated Exam Exam Patient acknowledged, consented, and participated in this virtual visit which was conducted using real time audio/video Vital Signs Date Time Temp Pulse Resp B/P (MAP) Pulse Ox O2 Delivery O2 Flow Rate FiO2 08/28/20 11:00 46 7 146/91 (109) 96 NIV Bilevel 70.00 08/28/20 10:00 55 31 137/88 (104) 91 NIV Bilevel 70.00 08/28/20 09:44 49 35 93 70.00 08/28/20 09:00 57 27 142/91 (108) 91 NIV Bilevel 70.00 08/28/20 08:00 94 NIV Bilevel 70 08/28/20 08:00 36.2 08/28/20 08:00 55 17 144/89 (107) 97 NIV Bilevel 70.00 08/28/20 07:02 NIV Bilevel 70.00 08/28/20 07:00 60 13 143/87 (105) 94 NIV Bilevel 60.00 08/28/20 06:44 63 08/28/20 06:37 49 35 93 55.00 08/28/20 06:00 44 129/81 (97) 94 NIV Bilevel 60.00 08/28/20 05:40 NIV Bilevel 60.00 08/28/20 05:00 45 32 130/81 (97) 93 NIV Bilevel 65.00 08/28/20 04:00 44 41 118/65 (82) 93 NIV Bilevel 65.00 08/28/20 04:00 NIV Bilevel 50.00 08/28/20 03:40 NIV Bilevel 65 08/28/20 03:25 36.7 NIV Bilevel 65.00 08/28/20 03:00 47 12 120/95 (103) 93 NIV Bilevel 80.00 08/28/20 02:00 60 29 98 75.00 08/28/20 02:00 61 12 135/97 (110) 96 NIV Bilevel 80.00 08/28/20 01:00 48 24 127/82 (97) NIV Bilevel 80.00 08/28/20 01:00 60 08/28/20 00:38 NIV Bilevel 80.00 08/28/20 00:00 NIV Bilevel 80 08/28/20 00:00 52 28 141/80 (100) 99 NIV Bilevel 90.00 08/27/20 23:00 58 26 99/51 (67) 95 NIV Bilevel 90.00 08/27/20 22:45 NIV Bilevel 90.00 08/27/20 22:40 52 39 86 60.00 08/27/20 22:00 51 27 114/87 (96) 94 NIV Bilevel 60.00 08/27/20 21:00 56 24 121/78 (92) 94 NIV Bilevel 60.00 08/27/20 20:36 NIV Bilevel 60 08/27/20 20:00 36.3 08/27/20 20:00 57 29 124/84 (97) 94 NIV Bilevel 60.00 08/27/20 19:34 56 31 126/76 (93) 94 NIV Bilevel 60.00 08/27/20 19:00 62 08/27/20 18:00 60 20 136/80 (98) 93 NIV Bilevel 60.00 08/27/20 17:52 59 27 94 60.00 08/27/20 17:00 54 34 118/66 (83) 92 NIV Bilevel 60.00 08/27/20 16:00 NIV Bilevel 60.00 08/27/20 16:00 93 NIV Bilevel 60 08/27/20 16:00 58 25 120/72 (88) 90 NIV Bilevel 45.00 08/27/20 15:50 36.2 08/27/20 15:00 66 33 108/67 (81) 90 NIV Bilevel 45.00 08/27/20 15:00 NIV Bilevel 60.00 08/27/20 14:11 66 36 94 60.00 08/27/20 13:00 74 34 118/74 (89) 90 NIV Bilevel 45.00 08/27/20 12:36 82 08/27/20 12:00 93 NIV Bilevel 45 08/27/20 12:00 87 32 139/89 (106) 92 NIV Bilevel 45.00 08/27/20 11:30 38.0 I & O 08/28/20 07:00 Intake Total 1100 ml Output Total 2000 ml Balance -900 ml Height & Weight Height: 5'5.00" Weight: 218lbs. 0.0oz. 98.693921ks; 36.89 BMI Method:Stated General Appearance: No Apparent Distress, WD/WN, Chronically ill, Other (On BiPAP) HEENT: PERRL/EOMI, Normal ENT Inspection, Pharynx Normal, Moist Mucous Membranes Neck: Full Range of Motion, Normal Inspection, Non Tender Respiratory: No Accessory Muscle Use, No Respiratory Distress, Decreased Breath Sounds Cardiovascular: Regular Rate, Rhythm Capillary Refill: Less Than 3 Seconds Gastrointestinal: normal bowel sounds, non tender, soft Extremity: Normal Capillary Refill, Normal Inspection, Normal Range of Motion, Non Tender, No Calf Tenderness, No Pedal Edema, Pedal Edema, Other (trace leg edema, has Alonso, will keep, 2 peripheral IV's) Neurologic/Psychiatric: Alert, Oriented x3, No Motor/Sensory Deficits, Normal Mood/Affect Skin: Normal Color, Warm/Dry Lymphatic: No Adenopathy Results Lab Laboratory Tests 08/27/20 08:45 08/28/20 03:30 Assessment/Plan Assessment/Plan (Tele-ICU Physician , Progress Note ) Available chart/ vitals / labs / Images reviewed Video assessment done using teleICU camera, rest of exam as per RN Discussed with RN Events overnight : Afebrile hemodynamically stable, no pressors, I/O = neg Drips: As per RN exam : Consultants: Hospital course: 08/24 - 39 yo F admitted 08/24 with COVID PNA,transferred to MICU yesterday,probab ly has had for 10 days, 08/27 - to ICU BIPAP 14/8 50% 08/28- BIPAP 14/8 70% CXR from 08/26 shows extensive bilateral infiltrates A/P Acute resp failure - on BIPAP /8 70% RR 40s , TV 400 - MV 20L HIGH RISK FOR INTUBATION - keep neg fluid balance -pronning COVID PNA - steroids iv Superimposed bact PNA , suspected - zmaxx and zosyn Nutritions - can not be off bipap for even short period of time - will start d5W . monitor Lines : PICC 08/27 LEFT , (Central Line Necessity Reviewed) Alonso: + OG: Nutrition: minimal Analgesia: na Anxiety/ delirium na, will change xolpidem to prn VTE Prophylaxis: lovenox 40 q 12 Stress Ulcer Prophylaxis: ppi Glycemic Control: + Plans in collaboration with bedside consultants and IM MDs. Discussed with RN to reach out if any questions or concerns A total of 31 minutes of critical care time was devoted to this patient today, required to treat and/or prevent further deterioration of critical care condition ( as above) . SELENA WESLEY MD Aug 28, 2020 11:30
[2020-08-28] MEDS: AZITHROMYCIN 500 MG/NS 250 ML IVPB IV SCH ×2 (12:43)
[2020-08-28] MEDS: ENOXAPARIN 40 MG/0.4 ML (LOVENOX) SYR SC SCH ×2 (12:44→23:18)
[2020-08-28] MEDS: D5W 1000 ML IV SOLUTION 1,000 ML IV SCH (12:44)
[2020-08-28] MEDS ORDERED: ZOLPIDEM 5 MG (AMBIEN) TAB PO PRN (20:00)
[2020-08-29] VITALS (28 sets, daily range): BP systolic 136–168; BP diastolic 65–118
[2020-08-29] MEDS: RT-ALBUTEROL INHALER HFA (VENTOLIN HFA) 18 GM IH SCH ×6 (02:49→21:26)
[2020-08-29 03:03] LABS: BASOPHILS % (AUTO) 0 % (0-10); EOSINOPHILS % (AUTO) 0 % (0-10); HEMATOCRIT 35 % (35-52); HEMOGLOBIN 11.2 g/dL (11.5-16.0); LYMPHOCYTES % (AUTO) 23 % (12-44); MEAN CORPUSCULAR HEMOGLOBIN 28 pg (25-34); MEAN CORPUSCULAR HGB CONC 32 g/dL (32-36); MEAN CORPUSCULAR VOLUME 87 fL (80-99); MEAN PLATELET VOLUME 9.1 fL (9.0-12.2); MONOCYTES # (AUTO) 0.3 10^3/uL (0.0-1.0); MONOCYTES % (AUTO) 7 % (0-12); NEUTROPHILS # (AUTO) 2.9 10^3/uL (1.8-7.8); NEUTROPHILS % (AUTO) 70 % (42-75); PLATELET COUNT 349 10^3/uL (130-400); WHITE BLOOD COUNT 4.2 10^3/uL (4.3-11.0)
[2020-08-29 03:13] LABS: POTASSIUM 3.7 MMOL/L (3.6-5.0)
[2020-08-29 03:18] LABS: PHOSPHORUS 3.1 MG/DL (2.3-4.7)
[2020-08-29 03:19] LABS: CREATININE SERUM 0.69 MG/DL (0.60-1.30)
[2020-08-29 03:21] LABS: MAGNESIUM 1.9 MG/DL (1.6-2.4)
[2020-08-29] MEDS: PIPERACILLIN/TAZO 4.5 GM/NS 100 ML IV SCH ×6 (03:58→20:48)
--- NOTE | 2020-08-29 06:19 | Progress Note - Hospitalist ---
Subjective HPI/CC On Admission Date Seen by Provider: Aug 29, 2020 Time Seen by Provider: 10:00 CC: SOB with fever HPI: This is a 39yoWF clinic Pt of [facility] who is unvaccinated against Covid-19 who presented with fever and chills and SOB found to have Covid-[address] [facility]. Currently Pt is feeling about the same, she is not using her IS as instructed. Pulmonology will be consulted, we will also heplock her IV fluid, restart her Decadron of 6 mg daily and will watch for increasing oxygen requirements since she has gone from two liters to five liters. We will go ahead and initiate a regular diet. Subjective/Events-last exam Pt about the same Improved a bit Maintain on BiPAP Opens her eyes Not eating or drinking yet Review of Systems General: Malaise Pulmonary: Dyspnea, Cough Objective Exam Vital Signs Vital Signs Date Time Temp Pulse Resp B/P (MAP) Pulse Ox O2 Delivery O2 Flow Rate FiO2 08/29/20 21:26 49 31 97 50.00 08/29/20 20:00 NIV Bilevel 50 08/29/20 19:58 36.6 08/29/20 18:00 142/92 (109) Capillary Refill : Less Than 3 Seconds General Appearance: No Apparent Distress, WD/WN, Chronically ill Respiratory: Lungs Clear, Decreased Breath Sounds Cardiovascular: Regular Rate, Rhythm Neurologic/Psychiatric: Alert, Oriented x3 Results/Procedures Lab Laboratory Tests 08/29/20 02:45 Patient resulted labs reviewed. Assessment/Plan Assessment and Plan Assess & Plan/Chief Complaint Assessment: COVID-19 pneumonia Hypoxia Hypertension Depression Hypertension Chronic debility Plan: Pulmonary consult Monitor closely 08/26/2020: Patient not compliant with ProAir inhaler or incentive spirometer or prone position Patient declining will transfer to the ICU due to increasing oxygen requirements 08/27/2020: BiPAP High risk for intubation Actemra to be infused 08/28/2020: Supportive care BiPAP High risk for intubation 08/29/2020: Slow recovery Monitor closely High risk for intubation Critical Care Critically Ill Patient Diagnosis/Problems Diagnosis/Problems (1) Pneumonia due to COVID-19 virus Status: Acute (2) Acute respiratory failure with hypoxia Status: Acute (3) Smoker Status: Acute KAMINI ELI DO Aug 29, 2020 06:18
--- NOTE | 2020-08-29 07:07 | Diagnostic Imaging Report ---
INDICATION: Hypoxemia. Portable chest 3:18 AM FINDINGS: There are bilateral pulmonary infiltrates. These appear to have improved since 08/26/2020. There are no effusions or pneumothoraces. IMPRESSION: Improving bilateral pulmonary infiltrates. Dictated by: Dictated on workstation # [id number]
[2020-08-29] MEDS: polyethylene glycoL POWDER 17 GM (MIRALAX) PACK PO SCH ×2 (09:44→21:03)
[2020-08-29] MEDS: PANTOPRAZOLE 40 MG (PROTONIX) VIAL IV SCH (09:44)
[2020-08-29] MEDS: SENNA W/DOCUSATE (SENOKOT S) TABLET PO SCH ×2 (09:44→21:04)
[2020-08-29] MEDS: ENOXAPARIN 40 MG/0.4 ML (LOVENOX) SYR SC SCH (09:44)
[2020-08-29] MEDS: D5W 1000 ML IV SOLUTION 1,000 ML IV SCH (09:46)
--- NOTE | 2020-08-29 11:41 | Tele-ICU Progress Note ---
Subjective Date Seen by a Provider: Aug 29, 2020 Time Seen by a Provider: 11:40 Sepsis Event Evaluation Height, Weight, BMI Height: 5'5.00" Weight: 218lbs. 0.0oz. 98.686077fm; 36.89 BMI Method:Stated Exam Exam Patient acknowledged, consented, and participated in this virtual visit which was conducted using real time audio/video Vital Signs Date Time Temp Pulse Resp B/P (MAP) Pulse Ox O2 Delivery O2 Flow Rate FiO2 08/29/20 11:00 46 26 153/103 (120) 95 NIV Bilevel 50.00 08/29/20 10:00 55 28 165/118 (134) 95 NIV Bilevel 50.00 08/29/20 09:00 44 140/91 (107) 90 NIV Bilevel 50.00 08/29/20 08:03 36.9 08/29/20 08:00 44 34 144/90 (108) 96 NIV Bilevel 50.00 08/29/20 07:51 49 30 96 50.00 08/29/20 07:00 46 28 152/90 (110) 93 NIV Bilevel 70.00 08/29/20 07:00 42 08/29/20 06:00 42 35 151/89 (109) 90 NIV Bilevel 70.00 08/29/20 05:00 40 20 144/87 (106) 93 NIV Bilevel 70.00 08/29/20 04:01 36.4 08/29/20 04:00 45 32 153/93 (113) 86 NIV Bilevel 70.00 08/29/20 03:47 97 NIV Bilevel 70 08/29/20 03:00 42 20 136/86 (103) 93 NIV Bilevel 70.00 08/29/20 02:49 41 37 94 60.00 08/29/20 02:00 40 25 138/81 (100) 90 NIV Bilevel 70.00 08/29/20 01:00 42 25 145/86 (105) 95 NIV Bilevel 70.00 08/29/20 00:34 42 08/29/20 00:00 41 25 145/88 (107) 95 NIV Bilevel 70.00 08/28/20 23:59 97 NIV Bilevel 70 08/28/20 23:00 42 29 131/78 (95) 91 NIV Bilevel 70.00 08/28/20 22:00 43 25 127/81 (96) 91 NIV Bilevel 70.00 08/28/20 21:55 41 44 94 60.00 08/28/20 21:00 46 39 127/86 (100) 92 NIV Bilevel 70.00 08/28/20 20:00 97 NIV Bilevel 70 08/28/20 20:00 47 27 134/82 (99) 95 NIV Bilevel 70.00 08/28/20 19:01 47 32 95 60.00 08/28/20 19:00 46 26 136/82 (100) 96 NIV Bilevel 70.00 08/28/20 19:00 49 08/28/20 18:00 43 30 140/89 (106) 96 NIV Bilevel 70.00 08/28/20 17:00 45 135/82 (99) 93 NIV Bilevel 70.00 08/28/20 16:56 37.6 08/28/20 16:00 94 NIV Bilevel 70 08/28/20 16:00 49 33 141/84 (103) 93 NIV Bilevel 70.00 08/28/20 15:00 71 23 144/93 (110) 96 NIV Bilevel 70.00 08/28/20 14:00 50 26 132/89 (103) 96 NIV Bilevel 70.00 08/28/20 13:34 53 40 96 60.00 08/28/20 13:00 52 40 148/91 (110) 94 NIV Bilevel 70.00 08/28/20 12:33 55 08/28/20 12:00 51 42 132/91 (105) 98 NIV Bilevel 70.00 08/28/20 12:00 94 NIV Bilevel 70 I & O 08/29/20 07:00 Intake Total 850 ml Output Total 1100 ml Balance -250 ml Height & Weight Height: 5'5.00" Weight: 218lbs. 0.0oz. 98.124737eh; 36.89 BMI Method:Stated General Appearance: No Apparent Distress, WD/WN, Chronically ill HEENT: PERRL/EOMI, Normal ENT Inspection, Pharynx Normal, Moist Mucous Membranes Neck: Full Range of Motion, Normal Inspection, Non Tender Respiratory: No Accessory Muscle Use, No Respiratory Distress, Decreased Breath Sounds, Other (On BiPAP) Cardiovascular: Regular Rate, Rhythm Capillary Refill: Less Than 3 Seconds Gastrointestinal: normal bowel sounds, non tender, soft Extremity: Normal Capillary Refill, Normal Inspection, Normal Range of Motion, Non Tender, No Calf Tenderness, No Pedal Edema, Pedal Edema, Other (trace leg edema, has Alonso, will keep, 2 peripheral IV's) Neurologic/Psychiatric: Alert, Oriented x3, No Motor/Sensory Deficits, Normal Mood/Affect Skin: Normal Color, Warm/Dry Lymphatic: No Adenopathy Results Lab Laboratory Tests 08/28/20 03:30 08/29/20 02:45 Assessment/Plan Assessment/Plan (Tele-ICU Physician , Progress Note ) Available chart/ vitals / labs / Images reviewed Video assessment done using teleICU camera, rest of exam as per RN Discussed with RN Events overnight : Afebrile hemodynamically stable, no pressors, I/O = neg 200 Drips: As per RN exam : Consultants: Hospital course: 08/24 - 39 yo F admitted 08/24 with COVID PNA,transferred to MICU yesterday,probably has had for 10 days, 08/27 - to ICU BIPAP 14/8 50% 08/28- BIPAP 14/8 70% 08/29 - BIPAP 14/8 50% CXR from 08/26 shows extensive bilateral infiltrates A/P Acute resp failure - on BIPAP /8 50% RR 30-40s , TV 400 - MV 17 L - improvement in fio2 and mv - WILL TRY TO GET LITTEL VAPOTHERM TiME FOR NUTRITIONS HIGH RISK FOR INTUBATION - keep neg fluid balance -pronning COVID PNA - steroids po - S/P ACTEMRA 08/27 Superimposed bact PNA , suspected - zmaxx and zosyn Nutritions - can not be off bipap for even short period of time - will start d5W . monitor [id number] - iss Lines : PICC 08/27 LEFT , (Central Line Necessity Reviewed) Alonso: + OG: Nutrition: minimal Analgesia: na Anxiety/ delirium na, will change xolpidem to prn VTE Prophylaxis: lovenox 40 q 12 Stress Ulcer Prophylaxis: ppi Glycemic Control: + Plans in collaboration with bedside consultants and IM MDs. Discussed with RN to reach out if any questions or concerns A total of 31 minutes of critical care time was devoted to this patient today, required to treat and/or prevent further deterioration of critical care condition ( as above) . SELENA WESLEY MD 23, 2021 11:41
[2020-08-29] MEDS ORDERED: hydrALAZINE (APESOLINE) 20 MG/ML VIAL IV PRN (13:30)
[2020-08-29] MEDS ORDERED: ACETAMINOPHEN 325 MG TABLET PO PRN (13:30)
[2020-08-29] MEDS: lisINopril 20 MG (PRINIVIL) TABLET PO SCH (21:03)
[2020-08-29] MEDS: DULoxetine 30 MG (CYMBALTA) CAP PO SCH (21:03)
[2020-08-29] MEDS: amLODIPine 5 MG (NORVASC) TAB PO SCH (21:03)
[2020-08-29] MEDS: ONDANSETRON 4 MG/2 ML (SDV) Z0FRAN IV PRN (21:06)
[2020-08-29] MEDS: ALPRAZolam 0.25 MG (XANAX) TAB PO PRN (21:06)
[2020-08-30] VITALS (31 sets, daily range): BP systolic 118–172; BP diastolic 80–104
[2020-08-30] MEDS: ENOXAPARIN 40 MG/0.4 ML (LOVENOX) SYR SC SCH ×3 (00:40→23:36)
[2020-08-30 03:45] LABS: BASOPHILS % (AUTO) 0 % (0-10); EOSINOPHILS % (AUTO) 0 % (0-10); HEMATOCRIT 39 % (35-52); HEMOGLOBIN 12.8 g/dL (11.5-16.0); LYMPHOCYTES # (AUTO) 1.4 10^3/uL (1.0-4.0); LYMPHOCYTES % (AUTO) 21 % (12-44); MEAN CORPUSCULAR HEMOGLOBIN 28 pg (25-34); MEAN CORPUSCULAR HGB CONC 33 g/dL (32-36); MEAN CORPUSCULAR VOLUME 85 fL (80-99); MONOCYTES # (AUTO) 0.5 10^3/uL (0.0-1.0); MONOCYTES % (AUTO) 8 % (0-12); NEUTROPHILS # (AUTO) 4.7 10^3/uL (1.8-7.8); NEUTROPHILS % (AUTO) 70 % (42-75); PLATELET COUNT 451 10^3/uL (130-400); WHITE BLOOD COUNT 6.7 10^3/uL (4.3-11.0)
[2020-08-30] MEDS: D5W 1000 ML IV SOLUTION 1,000 ML IV SCH ×2 (03:51→23:35)
[2020-08-30] MEDS: PIPERACILLIN/TAZO 4.5 GM/NS 100 ML IV SCH ×6 (03:52→20:48)
[2020-08-30] MEDS: ONDANSETRON 4 MG/2 ML (SDV) Z0FRAN IV PRN ×2 (03:52→20:48)
[2020-08-30 03:55] LABS: POTASSIUM 3.9 MMOL/L (3.6-5.0)
[2020-08-30 03:56] LABS: CALCIUM 8.8 MG/DL (8.5-10.1)
[2020-08-30 04:00] LABS: PHOSPHORUS 3.4 MG/DL (2.3-4.7)
[2020-08-30 04:01] LABS: CREATININE SERUM 0.74 MG/DL (0.60-1.30)
[2020-08-30] MEDS: RT-ALBUTEROL INHALER HFA (VENTOLIN HFA) 18 GM IH SCH ×5 (06:32→22:11)
--- NOTE | 2020-08-30 06:44 | Progress Note - Hospitalist ---
Subjective HPI/CC On Admission Date Seen by Provider: Aug 30, 2020 Time Seen by Provider: 06:30 CC: SOB with fever HPI: This is a 39yoWF clinic Pt of [facility] who is unvaccinated against Covid-19 who presented with fever and chills and SOB found to have Covid-19 pneumonia to the [place] [facility]. Currently Pt is feeling about the same, she is not using her IS as instructed. Pulmonology will be consulted, we will also heplock her IV fluid, restart her Decadron of 6 mg daily and will watch for increasing oxygen requirements since she has gone from two liters to five liters. We will go ahead and initiate a regular diet. Subjective/Events-last exam Pt still critical but appears to be more alert Overall slowly improving Labs look good Eating and drinking pretty well Having diarrhea Checked meds and labs Review of Systems General: Fatigue, Malaise Pulmonary: Dyspnea Objective Exam Vital Signs Vital Signs Date Time Temp Pulse Resp B/P (MAP) Pulse Ox O2 Delivery O2 Flow Rate FiO2 08/31/20 06:00 61 105/80 (88) 91 Vapotherm 40.00 100.00 08/31/20 04:00 34 08/30/20 20:00 40 08/30/20 16:17 35.4 Capillary Refill : Less Than 3 Seconds General Appearance: No Apparent Distress, WD/WN, Other (On BiPAP) Respiratory: Lungs Clear, No Accessory Muscle Use, No Respiratory Distress, Decreased Breath Sounds Cardiovascular: Regular Rate, Rhythm Neurologic/Psychiatric: Alert, Oriented x3 Results/Procedures Lab Laboratory Tests 08/31/20 04:00 Patient resulted labs reviewed. Assessment/Plan Assessment and Plan Assess & Plan/Chief Complaint Assessment: COVID-19 pneumonia Hypoxia Hypertension Depression Hypertension Chronic debility Plan: Pulmonary consult Monitor closely 08/26/2020: Patient not compliant with ProAir inhaler or incentive spirometer or prone position Patient declining will transfer to the ICU due to increasing oxygen requirements 08/27/2020: BiPAP High risk for intubation Actemra to be infused 08/28/2020: Supportive care BiPAP High risk for intubation 08/29/2020: Slow recovery Monitor closely High risk for intubation 08/30/2020: BiPAP Supportive care Critical Care Critically Ill Patient Diagnosis/Problems Diagnosis/Problems (1) Pneumonia due to COVID-19 virus Status: Acute (2) Acute respiratory failure with hypoxia Status: Acute (3) Smoker Status: Acute KAMINI ELI DO Aug 30, 2020 06:44
[2020-08-30] MEDS: SENNA W/DOCUSATE (SENOKOT S) TABLET PO SCH ×2 (08:52→21:21)
[2020-08-30] MEDS: polyethylene glycoL POWDER 17 GM (MIRALAX) PACK PO SCH ×2 (08:52→21:21)
[2020-08-30] MEDS: PANTOPRAZOLE 40 MG (PROTONIX) VIAL IV SCH (08:53)
--- NOTE | 2020-08-30 10:57 | Tele-ICU Progress Note ---
Subjective Date Seen by a Provider: Aug 30, 2020 Time Seen by a Provider: 09:45 Subjective/Events-last exam Patient participated in this virtual visit which was conducted using real time audio/video. Thank you for asking us to see this patient for respiratory insufficiency and distress due to Covid pna. Pt not vaccinated.. HPC: Recent events: Sinus bradycardia w sleep. PMH: htn SH: smoking history positive. 1 PPD. FH: Non-contributory ROS: limited by patient's clinical condition, but reasonably comfortable. PE: Resting comfortably. Obese. VSS HR 46 SB BP 133/90 RR 20 O2 sat on BiPAP 50% 16/10 HEENT: No obvious masses, adenopathy or JVD. Chest: clear to auscultation. CV: RRR S1 S2 No murmur or added sounds. Abd: Non-tender. Bowel sounds . : Unremarkable. Alonso . STAGE PRODUCER/psychiatric: Alert and oriented, grossly intact. No obvious focal findings. Extremities: edema. Capillary refill < 3 seconds. Skin: unremarkable. Results: Elevated BG. A/P: Respiratory insufficiency/distress: cpm. Available chart/ vitals / labs / Images reviewed. Video assessment done using teleICU camera, rest of exam as per RN. Respiratory: Continue present management with BiPAP. Monitor for increasing oxygenation needs and/or need for intubation. Critical Care: critically ill patient. Discussed with CASTILLO Perea. Asked RN to reach out to eICU if any questions or concerns later. Time spent with patient/coordination of care with other health professionals (mins): 15 Sepsis Event Evaluation Sepsis Stage: Ruled Out Height, Weight, BMI Height: 5'5.00" Weight: 218lbs. 0.0oz. 98.172488pk; 36.89 BMI Method:Stated Focused Exam Sepsis Stage: Ruled Out Exam Exam Patient acknowledged, consented, and participated in this virtual visit which was conducted using real time audio/video Vital Signs Date Time Temp Pulse Resp B/P (MAP) Pulse Ox O2 Delivery O2 Flow Rate FiO2 08/30/20 10:47 46 32 95 50.00 08/30/20 08:50 95 NIV Bilevel 50 08/30/20 08:08 35.5 08/30/20 08:00 67 147/97 (114) 93 NIV Bilevel 50.00 08/30/20 07:00 45 28 154/101 (118) 95 NIV Bilevel 50.00 08/30/20 07:00 45 08/30/20 06:32 42 28 94 50.00 08/30/20 06:00 42 28 142/99 (113) 93 NIV Bilevel 50.00 08/30/20 05:00 41 34 152/98 (116) 92 NIV Bilevel 50.00 08/30/20 04:00 42 27 149/100 (116) 94 NIV Bilevel 50.00 08/30/20 04:00 94 NIV Bilevel 50 08/30/20 03:28 49 31 97 50.00 08/30/20 03:00 41 22 172/104 (126) 96 NIV Bilevel 50.00 08/30/20 02:00 40 32 157/100 (119) 92 NIV Bilevel 50.00 08/30/20 01:00 40 26 148/92 (110) 93 NIV Bilevel 50.00 08/30/20 01:00 40 08/30/20 00:00 37 31 170/98 (122) 94 NIV Bilevel 50.00 08/30/20 00:00 93 NIV Bilevel 50 08/29/20 23:08 36.9 08/29/20 23:00 40 25 168/97 (120) 93 NIV Bilevel 50.00 08/29/20 22:00 41 33 159/100 (119) 96 NIV Bilevel 50.00 08/29/20 21:26 49 31 97 50.00 08/29/20 21:00 50 23 160/100 (120) 91 NIV Bilevel 50.00 08/29/20 20:00 97 NIV Bilevel 50 08/29/20 20:00 64 29 160/106 (124) 94 NIV Bilevel 50.00 08/29/20 19:58 36.6 08/29/20 19:28 43 21 96 50.00 08/29/20 19:00 48 19 139/93 (108) 95 NIV Bilevel 50.00 08/29/20 19:00 47 08/29/20 18:00 51 22 142/92 (109) 93 NIV Bilevel 50.00 08/29/20 17:00 52 29 138/89 (105) 94 NIV Bilevel 50.00 08/29/20 16:13 36.4 08/29/20 16:00 94 28 139/65 (89) 90 NIV Bilevel 50.00 08/29/20 16:00 97 NIV Bilevel 50 08/29/20 15:00 85 164/99 (120) 95 NIV Bilevel 50.00 08/29/20 14:00 42 152/98 (116) 92 NIV Bilevel 50.00 08/29/20 13:00 43 153/101 (118) 92 NIV Bilevel 50.00 08/29/20 13:00 45 08/29/20 12:00 41 155/106 (122) 92 NIV Bilevel 50.00 08/29/20 12:00 97 NIV Bilevel 50 08/29/20 11:00 46 26 153/103 (120) 95 NIV Bilevel 50.00 I & O 08/30/20 07:00 Intake Total 820 ml Output Total 2550 ml Balance -1730 ml Height & Weight Height: 5'5.00" Weight: 218lbs. 0.0oz. 98.729648aj; 36.89 BMI Method:Stated General Appearance: No Apparent Distress, WD/WN, Chronically ill HEENT: PERRL/EOMI, Normal ENT Inspection, Pharynx Normal, Moist Mucous Membranes Neck: Full Range of Motion, Normal Inspection, Non Tender Respiratory: Lungs Clear, Decreased Breath Sounds Cardiovascular: Regular Rate, Rhythm Capillary Refill: Less Than 3 Seconds Gastrointestinal: normal bowel sounds, non tender, soft Extremity: Normal Capillary Refill, Normal Inspection, Normal Range of Motion, Non Tender, No Calf Tenderness, No Pedal Edema, Pedal Edema, Other (trace leg edema, has Alonso, will keep, 2 peripheral IV's) Neurologic/Psychiatric: Alert, Oriented x3 Skin: Normal Color, Warm/Dry Lymphatic: No Adenopathy Results Lab Laboratory Tests 08/29/20 02:45 08/30/20 03:25 Assessment/Plan Assessment/Plan See free text. Critical Care: Critically Ill Patient Time spent on discussion(mins): 0 Diagnosis/Problems Diagnosis/Problems (1) Pneumonia due to COVID-19 virus Status: Acute (2) Acute respiratory failure with hypoxia Status: Acute MILLER RODAS MD Aug 30, 2020 10:57
[2020-08-30] MEDS ORDERED: RT-ALBUTEROL INHALER HFA (VENTOLIN HFA) 18 GM IH PRN (16:30)
[2020-08-30] MEDS: lisINopril 20 MG (PRINIVIL) TABLET PO SCH (20:48)
[2020-08-30] MEDS: ALPRAZolam 0.25 MG (XANAX) TAB PO PRN (20:48)
[2020-08-30] MEDS: DULoxetine 30 MG (CYMBALTA) CAP PO SCH (20:48)
[2020-08-30] MEDS: amLODIPine 5 MG (NORVASC) TAB PO SCH (20:48)
[2020-08-31] VITALS (27 sets, daily range): BP systolic 103–125; BP diastolic 56–88
[2020-08-31] MEDS: RT-ALBUTEROL INHALER HFA (VENTOLIN HFA) 18 GM IH SCH ×6 (02:31→21:53)
[2020-08-31] MEDS: PIPERACILLIN/TAZO 4.5 GM/NS 100 ML IV SCH ×6 (03:47→20:15)
[2020-08-31 04:40] LABS: BASOPHILS % (AUTO) 0 % (0-10); EOSINOPHILS # (AUTO) 0.3 10^3/uL (0.0-0.3); EOSINOPHILS % (AUTO) 5 % (0-10); HEMATOCRIT 41 % (35-52); HEMOGLOBIN 13.2 g/dL (11.5-16.0); LYMPHOCYTES # (AUTO) 2.6 10^3/uL (1.0-4.0); LYMPHOCYTES % (AUTO) 38 % (12-44); MEAN CORPUSCULAR HEMOGLOBIN 27 pg (25-34); MEAN CORPUSCULAR HGB CONC 32 g/dL (32-36); MEAN CORPUSCULAR VOLUME 85 fL (80-99); MEAN PLATELET VOLUME 9.3 fL (9.0-12.2); MONOCYTES # (AUTO) 0.6 10^3/uL (0.0-1.0); MONOCYTES % (AUTO) 9 % (0-12); NEUTROPHILS # (AUTO) 3.3 10^3/uL (1.8-7.8); NEUTROPHILS % (AUTO) 47 % (42-75); PLATELET COUNT 427 10^3/uL (130-400)
[2020-08-31 04:44] LABS: POTASSIUM 3.4 MMOL/L (3.6-5.0)
[2020-08-31 04:45] LABS: CALCIUM 8.9 MG/DL (8.5-10.1)
[2020-08-31 04:49] LABS: CREATININE SERUM 0.76 MG/DL (0.60-1.30); PHOSPHORUS 3.9 MG/DL (2.3-4.7)
[2020-08-31 04:52] LABS: MAGNESIUM 1.8 MG/DL (1.6-2.4)
[2020-08-31] MEDS: KCL 20 MEQ TAB (K-DUR) PO SCH (05:25)
[2020-08-31] MEDS: MAGNESIUM 1 GM/100 ML IVPB 100 ML IV SCH (05:25)
[2020-08-31] MEDS: POTASSIUM CL 10MEQ/50ML IVPB 50 ML IV SCH (05:25)
--- NOTE | 2020-08-31 06:56 | Progress Note - Hospitalist ---
Subjective HPI/CC On Admission Date Seen by Provider: Aug 31, 2020 Time Seen by Provider: 12:00 CC: SOB with fever HPI: This is a 39yoWF clinic Pt of [facility] who is unvaccinated against Covid-19 who presented with fever and chills and SOB found to have Covid-19 pneumonia to the [facility] ER. Currently Pt is feeling about the same, she is not using her IS as instructed. Pulmonology will be consulted, we will also heplock her IV fluid, restart her Decadron of 6 mg daily and will watch for increasing oxygen requirements since she has gone from two liters to five liters. We will go ahead and initiate a regular diet. Subjective/Events-last exam Patient improving although slowly Vapotherm Eating a bit Having diarrhea taking Imodium Incentive spirometer and Acapella will be provided Overall improved Review of Systems General: Fatigue, Malaise Pulmonary: Dyspnea Objective Exam Vital Signs Vital Signs Date Time Temp Pulse Resp B/P (MAP) Pulse Ox O2 Delivery O2 Flow Rate FiO2 09/01/20 05:00 61 27 128/91 (103) 97 NIV Bilevel 45.00 09/01/20 04:34 36.0 09/01/20 04:24 45 Capillary Refill : Less Than 3 Seconds General Appearance: No Apparent Distress, WD/WN, Anxious, Chronically ill, Obese Respiratory: No Accessory Muscle Use, No Respiratory Distress, Decreased Breath Sounds Cardiovascular: Regular Rate, Rhythm Neurologic/Psychiatric: Alert, Oriented x3, No Motor/Sensory Deficits, Normal Mood/Affect Results/Procedures Lab Laboratory Tests 09/01/20 04:33 Patient resulted labs reviewed. Assessment/Plan Assessment and Plan Assess & Plan/Chief Complaint Assessment: COVID-19 pneumonia Hypoxia Hypertension Depression Hypertension Chronic debility Plan: Pulmonary consult Monitor closely 08/26/2020: Patient not compliant with ProAir inhaler or incentive spirometer or prone position Patient declining will transfer to the ICU due to increasing oxygen requirements 08/27/2020: BiPAP High risk for intubation Actemra to be infused 08/28/2020: Supportive care BiPAP High risk for intubation 08/29/2020: Slow recovery Monitor closely High risk for intubation 08/30/2020: BiPAP Supportive care 08/31/2020: Vapotherm Monitor closely Improving Still critical Critical Care Critically Ill Patient Diagnosis/Problems Diagnosis/Problems (1) Pneumonia due to COVID-19 virus Status: Acute (2) Acute respiratory failure with hypoxia Status: Acute (3) Smoker Status: Acute KAMINI ELI DO Aug 31, 2020 06:56
[2020-08-31] MEDS ORDERED: KCL 20 MEQ TAB (K-DUR) PO ONE (09:00)
[2020-08-31] MEDS: PANTOPRAZOLE 40 MG (PROTONIX) VIAL IV SCH (09:17)
[2020-08-31] MEDS: polyethylene glycoL POWDER 17 GM (MIRALAX) PACK PO SCH ×2 (09:25→22:23)
[2020-08-31] MEDS: SENNA W/DOCUSATE (SENOKOT S) TABLET PO SCH ×2 (09:25→22:23)
--- NOTE | 2020-08-31 10:46 | Tele-ICU Progress Note ---
Progress Note video rounds completed 2 y/o with Topher DUGGAN transferred to ICU for hypoxemia Currently stable with no increased O2 requirements. PE: comfortable withnormal vitals Labs : all normal except low K Meds: zosyn Decaddron Lovenox PLAN: continue O2 therapy as needed, evaluate for worsening resp status and need for intubationLaboratory Tests 08/29/20 02:45: White Blood Count 4.2L, Hemoglobin 11.2L, Red Cell Distribution Width 15.2H, D- Dimer 1.12H, Sodium Level 134L, Glucose Level 391H, Calcium Level 8.0L, C- Reactive Protein High Sensitivity 7.14H 08/30/20 03:25: Red Cell Distribution Width 14.6H, Glucose Level 146H, Platelet Count 451H 08/31/20 04:00: Glucose Level 108H, Platelet Count 427H, Potassium Level 3.4L Focused Exam Sepsis Stage: Sepsis Height, Weight, BMI Height: 5'5.00" Weight: 218lbs. 0.0oz. 98.027867rb; 36.89 BMI Method:Stated MONCHO OCONNELL MD Aug 31, 2020 10:46
[2020-08-31] MEDS: ENOXAPARIN 40 MG/0.4 ML (LOVENOX) SYR SC SCH ×2 (12:03→22:38)
[2020-08-31] MEDS: D5W 1000 ML IV SOLUTION 1,000 ML IV SCH (19:24)
[2020-08-31] MEDS: lisINopril 20 MG (PRINIVIL) TABLET PO SCH (20:15)
[2020-08-31] MEDS: DULoxetine 30 MG (CYMBALTA) CAP PO SCH (20:15)
[2020-08-31] MEDS: amLODIPine 5 MG (NORVASC) TAB PO SCH (20:15)
[2020-08-31] MEDS: MELATONIN 3 MG TABLET PO PRN (20:18)
[2020-08-31] MEDS: ALPRAZolam 0.25 MG (XANAX) TAB PO PRN (20:18)
[2020-09-01] VITALS (16 sets, daily range): BP systolic 104–136; BP diastolic 72–94
[2020-09-01] MEDS: RT-ALBUTEROL INHALER HFA (VENTOLIN HFA) 18 GM IH SCH ×6 (02:59→23:10)
[2020-09-01] MEDS: PIPERACILLIN/TAZO 4.5 GM/NS 100 ML IV SCH ×4 (04:34→12:30)
[2020-09-01 05:31] LABS: BASOPHILS % (AUTO) 0 % (0-10); EOSINOPHILS # (AUTO) 0.1 10^3/uL (0.0-0.3); EOSINOPHILS % (AUTO) 1 % (0-10); HEMATOCRIT 41 % (35-52); HEMOGLOBIN 13.4 g/dL (11.5-16.0); LYMPHOCYTES # (AUTO) 1.5 10^3/uL (1.0-4.0); LYMPHOCYTES % (AUTO) 15 % (12-44); MEAN CORPUSCULAR HEMOGLOBIN 28 pg (25-34); MEAN CORPUSCULAR HGB CONC 32 g/dL (32-36); MEAN CORPUSCULAR VOLUME 85 fL (80-99); MEAN PLATELET VOLUME 9.4 fL (9.0-12.2); MONOCYTES # (AUTO) 0.7 10^3/uL (0.0-1.0); MONOCYTES % (AUTO) 7 % (0-12); NEUTROPHILS # (AUTO) 7.2 10^3/uL (1.8-7.8); NEUTROPHILS % (AUTO) 75 % (42-75); PLATELET COUNT 506 10^3/uL (130-400); WHITE BLOOD COUNT 9.7 10^3/uL (4.3-11.0)
[2020-09-01 05:43] LABS: ALBUMIN 3.6 GM/DL (3.2-4.5)
[2020-09-01 05:44] LABS: CALCIUM 9.3 MG/DL (8.5-10.1)
[2020-09-01 05:46] LABS: TOTAL PROTEIN 6.7 GM/DL (6.4-8.2)
[2020-09-01 05:48] LABS: BILIRUBIN,TOTAL 0.4 MG/DL (0.1-1.0)
[2020-09-01 05:49] LABS: PHOSPHORUS 3.5 MG/DL (2.3-4.7)
[2020-09-01 05:50] LABS: CREATININE SERUM 0.75 MG/DL (0.60-1.30)
[2020-09-01 05:51] LABS: BILIRUBIN,DIRECT 0.2 MG/DL (0.0-0.3); BILIRUBIN,INDIRECT 0.2 MG/DL
[2020-09-01] MEDS: POTASSIUM CL 10MEQ/50ML IVPB 50 ML IV SCH (05:51)
[2020-09-01] MEDS: KCL 20 MEQ TAB (K-DUR) PO SCH (05:51)
[2020-09-01] MEDS: MAGNESIUM 1 GM/100 ML IVPB 100 ML IV SCH (05:51)
[2020-09-01 05:52] LABS: MAGNESIUM 2.2 MG/DL (1.6-2.4)
--- NOTE | 2020-09-01 06:21 | Progress Note - Hospitalist ---
Subjective HPI/CC On Admission Date Seen by Provider: Sep 01, 2020 Time Seen by Provider: 11:00 CC: SOB with fever HPI: This is a 39yoWF clinic Pt of [facility] who is unvaccinated against Covid-19 who presented with fever and chills and SOB found to have Covid-19 pneumonia to the [place] [facility]. Currently Pt is feeling about the same, she is not using her IS as instructed. Pulmonology will be consulted, we will also heplock her IV fl uid, restart her Decadron of 6 mg daily and will watch for increasing oxygen requirements since she has gone from two liters to five liters. We will go ahead and initiate a regular diet. Subjective/Events-last exam Pt doing really well Transferring to 4th floor No pain is reported Still on Vapotherm Slow recovery Review of Systems General: Fatigue, Malaise Neurological: Weakness Objective Exam Vital Signs Vital Signs Date Time Temp Pulse Resp B/P (MAP) Pulse Ox O2 Delivery O2 Flow Rate FiO2 09/02/20 04:41 36.1 56 20 113/76 (88) 97 Vapotherm 40.00 50.00 09/02/20 02:42 50 Capillary Refill : Less Than 3 Seconds General Appearance: No Apparent Distress, WD/WN, Chronically ill Respiratory: Lungs Clear, Normal Breath Sounds Cardiovascular: Regular Rate, Rhythm Neurologic/Psychiatric: Alert, Oriented x3, Depressed Affect Results/Procedures Lab Patient resulted labs reviewed. Assessment/Plan Assessment and Plan Assess & Plan/Chief Complaint Assessment: COVID-19 pneumonia Hypoxia Hypertension Depression Hypertension Chronic debility Plan: Pulmonary consult Monitor closely 08/26/2020: Patient not compliant with ProAir inhaler or incentive spirometer or prone position Patient declining will transfer to the ICU due to increasing oxygen requirements 08/27/2020: BiPAP High risk for intubation Actemra to be infused 08/28/2020: Supportive care BiPAP High risk for intubation 08/29/2020: Slow recovery Monitor closely High risk for intubation 08/30/2020: BiPAP Supportive care 08/31/2020: Vapotherm Monitor closely Improving Still critical 09/01/2020: Transfer to floor Supportive care Improved Critical Care Critically Ill Patient Diagnosis/Problems Diagnosis/Problems (1) Pneumonia due to COVID-19 virus Status: Acute (2) Acute respiratory failure with hypoxia Status: Acute (3) Smoker Status: Acute ELI,KAMINI DO Sep 01, 2020 06:21
[2020-09-01] MEDS: SENNA W/DOCUSATE (SENOKOT S) TABLET PO SCH ×2 (09:26→20:52)
[2020-09-01] MEDS: PANTOPRAZOLE 40 MG (PROTONIX) VIAL IV SCH (09:26)
[2020-09-01] MEDS: polyethylene glycoL POWDER 17 GM (MIRALAX) PACK PO SCH ×2 (09:26→20:52)
--- NOTE | 2020-09-01 11:45 | Tele-ICU Progress Note ---
Subjective Date Seen by a Provider: Sep 01, 2020 Time Seen by a Provider: 11:45 Sepsis Event Evaluation Height, Weight, BMI Height: 5'5.00" Weight: 218lbs. 0.0oz. 98.161686nn; 36.89 BMI Method:Stated Exam Exam Patient acknowledged, consented, and participated in this virtual visit which was conducted using real time audio/video Vital Signs Date Time Temp Pulse Resp B/P (MAP) Pulse Ox O2 Delivery O2 Flow Rate FiO2 09/01/20 10:00 80 36 136/92 (107) 97 Vapotherm 40.00 75.00 09/01/20 09:55 Vapotherm 40.00 75.00 09/01/20 09:52 100 Vapotherm 40.00 100 09/01/20 09:39 35.9 76 16 118/90 (99) 100 Vapotherm 40.00 100.00 09/01/20 09:00 61 20 118/90 (99) 96 NIV Bilevel 45.00 09/01/20 08:00 60 24 126/94 (105) 96 NIV Bilevel 45.00 09/01/20 08:00 35.9 09/01/20 07:10 52 16 96 45.00 09/01/20 07:00 57 17 116/86 (96) 96 NIV Bilevel 45.00 09/01/20 07:00 59 09/01/20 06:00 64 18 121/88 (99) 96 NIV Bilevel 45.00 09/01/20 05:00 61 27 128/91 (103) 97 NIV Bilevel 45.00 09/01/20 04:34 36.0 09/01/20 04:24 NIV Bilevel 45 09/01/20 04:00 62 17 118/85 (93) 96 NIV Bilevel 45.00 09/01/20 03:00 60 19 115/84 (95) 95 NIV Bilevel 45.00 09/01/20 02:59 64 25 93 40.00 09/01/20 02:00 65 26 112/85 (95) 97 NIV Bilevel 45.00 09/01/20 01:00 73 09/01/20 01:00 73 19 117/79 (92) 95 NIV Bilevel 45.00 09/01/20 00:05 36.3 09/01/20 00:00 NIV Bilevel 45 09/01/20 00:00 65 17 118/83 (95) 95 NIV Bilevel 45.00 08/31/20 23:15 NIV Bilevel 45.00 08/31/20 23:00 74 22 122/86 (96) 95 Vapotherm 40.00 100.00 08/31/20 22:00 86 31 116/83 (92) 90 Vapotherm 40.00 100.00 08/31/20 21:53 83 24 94 40.00 08/31/20 21:00 94 22 104/72 (81) 91 Vapotherm 40.00 100.00 08/31/20 20:11 89 24 121/84 (96) 92 Vapotherm 40.00 100.00 08/31/20 20:00 91 Vapotherm 40.00 100 08/31/20 19:30 36.8 08/31/20 19:22 94 Vapotherm 40.00 100 08/31/20 19:00 80 08/31/20 19:00 80 38 125/88 (100) 89 Vapotherm 40.00 100.00 08/31/20 18:00 80 31 124/86 (99) 88 Vapotherm 40.00 100.00 08/31/20 17:00 78 13 117/87 (97) 92 Vapotherm 40.00 100.00 08/31/20 16:00 95 Vapotherm 100 08/31/20 16:00 36.7 08/31/20 16:00 81 32 106/56 (73) 86 Vapotherm 40.00 100.00 08/31/20 15:11 93 Vapotherm 40.00 100 08/31/20 15:00 66 28 117/88 (98) 90 Vapotherm 40.00 100.00 08/31/20 14:00 69 20 116/87 (97) 97 Vapotherm 40.00 100.00 08/31/20 13:00 69 08/31/20 13:00 86 20 110/76 (87) 99 Vapotherm 40.00 100.00 08/31/20 12:35 97 Vapotherm 100 08/31/20 12:00 66 26 106/74 (85) 99 Vapotherm 40.00 100.00 08/31/20 11:49 36.1 I & O 09/01/20 07:00 Intake Total 1550 ml Output Total 1950 ml Balance -400 ml Height & Weight Height: 5'5.00" Weight: 218lbs. 0.0oz. 98.248926rc; 36.89 BMI Method:Stated General Appearance: No Apparent Distress, WD/WN, Anxious, Chronically ill, Obese HEENT: PERRL/EOMI, Normal ENT Inspection, Pharynx Normal, Moist Mucous Membranes Neck: Full Range of Motion, Normal Inspection, Non Tender Respiratory: No Accessory Muscle Use, No Respiratory Distress, Decreased Breath Sounds Cardiovascular: Regular Rate, Rhythm Capillary Refill: Less Than 3 Seconds Gastrointestinal: normal bowel sounds, non tender, soft Extremity: Normal Capillary Refill, Normal Inspection, Normal Range of Motion, Non Tender, No Calf Tenderness, No Pedal Edema, Pedal Edema, Other (trace leg edema, has Alonso, will keep, 2 peripheral IV's) Neurologic/Psychiatric: Alert, Oriented x3, No Motor/Sensory Deficits, Normal Mood/Affect Skin: Normal Color, Warm/Dry Lymphatic: No Adenopathy Results Lab Laboratory Tests 08/31/20 04:00 09/01/20 04:33 Assessment/Plan Assessment/Plan (Tele-ICU Physician , Progress Note ) Available chart/ vitals / labs / Images reviewed Video assessment done using teleICU camera, rest of exam as per RN Discussed with RN Events overnight : Afebrile hemodynamically stable, no pressors, I/O = neg 200 Drips: As per RN exam : Consultants: Hospital course: 08/24 - 39 yo F admitted 08/24 with COVID PNA,transferred to MICU yesterday,probably has had for 10 days, 08/27 - to ICU BIPAP 14/8 50% 08/28- BIPAP 14/8 70% 08/29 - BIPAP 14/8 50% 09/01 - 50% on bipap , vapotherm CXR from 08/26 shows extensive bilateral infiltrates A/P Acute resp failure - on BIPAP 14/8 45 % RR 24 , TV 900- MV 17 L - improvement in fio2 and mv - WILL use VAPOTHERM - keep neg fluid balance -pronning COVID PNA - steroids po - S/P ACTEMRA 08/27 Superimposed bact PNA , suspected - zmaxx done , on zosyn Nutritions - po hYPERGLYCEMIA - iss Lines : PICC 7/21 LEFT , (Central Line Necessity Reviewed) Alonso: + OG: Nutrition: minimal Analgesia: na Anxiety/ delirium na, will change xolpidem to prn VTE Prophylaxis: lovenox 40 q 12 Stress Ulcer Prophylaxis: ppi Glycemic Control: + Plans in collaboration with bedside consultants and IM MDs. Discussed with RN to reach out if any questions or concerns A total of 31 minutes of critical care time was devoted to this patient today, required to treat and/or prevent further deterioration of critical care condition ( as above) . SELENA WESLEY MD Sep 01, 2020 11:45
[2020-09-01] MEDS: ENOXAPARIN 40 MG/0.4 ML (LOVENOX) SYR SC SCH ×2 (12:11→23:08)
[2020-09-01] MEDS: amLODIPine 5 MG (NORVASC) TAB PO SCH (20:45)
[2020-09-01] MEDS: lisINopril 20 MG (PRINIVIL) TABLET PO SCH (20:45)
[2020-09-01] MEDS: DULoxetine 30 MG (CYMBALTA) CAP PO SCH (20:46)
[2020-09-01] MEDS: MELATONIN 3 MG TABLET PO PRN (20:50)
[2020-09-02] VITALS (8 sets, daily range): BP systolic 101–141; BP diastolic 69–89
[2020-09-02] MEDS: RT-ALBUTEROL INHALER HFA (VENTOLIN HFA) 18 GM IH SCH ×5 (02:41→21:14)
[2020-09-02 05:20] LABS: BASOPHILS % (AUTO) 0 % (0-10); EOSINOPHILS # (AUTO) 0.1 10^3/uL (0.0-0.3); EOSINOPHILS % (AUTO) 1 % (0-10); HEMATOCRIT 41 % (35-52); HEMOGLOBIN 13.1 g/dL (11.5-16.0); LYMPHOCYTES # (AUTO) 2.2 10^3/uL (1.0-4.0); LYMPHOCYTES % (AUTO) 17 % (12-44); MEAN CORPUSCULAR HEMOGLOBIN 28 pg (25-34); MEAN CORPUSCULAR HGB CONC 32 g/dL (32-36); MEAN CORPUSCULAR VOLUME 86 fL (80-99); MEAN PLATELET VOLUME 9.3 fL (9.0-12.2); MONOCYTES # (AUTO) 1.1 10^3/uL (0.0-1.0); MONOCYTES % (AUTO) 8 % (0-12); NEUTROPHILS # (AUTO) 9.3 10^3/uL (1.8-7.8); NEUTROPHILS % (AUTO) 71 % (42-75); PLATELET COUNT 506 10^3/uL (130-400); WHITE BLOOD COUNT 13.1 10^3/uL (4.3-11.0)
--- NOTE | 2020-09-02 05:30 | Progress Note - Hospitalist ---
Subjective HPI/CC On Admission Date Seen by Provider: Sep 02, 2020 Time Seen by Provider: 10:00 CC: SOB with fever HPI: This is a 39yoWF clinic Pt of [facility] who is unvaccinated against Covid-19 who presented with fever and chills and SOB found to have Covid-19 pneumonia to the [place] [facility]. Currently Pt is feeling about the same, she is not using her IS as instructed. Pulmonology will be consulted, we will also heplock her IV fluid, restart her Decadron of 6 mg daily and will watch for increasing oxygen requirements since she has gone from two liters to five liters. We will go ahead and initiate a regular diet. Subjective/Events-last exam Pt dramatically improved Alert right now Vapotherm still maintained but hopefully we will be able to decrease PT and OT will be ordered Review of Systems General: Fatigue, Malaise Neurological: Weakness Objective Exam Vital Signs Vital Signs Date Time Temp Pulse Resp B/P (MAP) Pulse Ox O2 Delivery O2 Flow Rate FiO2 09/02/20 19:20 36.2 91 20 126/89 (101) 95 NIV Bilevel 20.00 50.00 09/02/20 18:28 50 Capillary Refill : Less Than 3 Seconds General Appearance: No Apparent Distress, WD/WN, Chronically ill Respiratory: Lungs Clear, Normal Breath Sounds Cardiovascular: Regular Rate, Rhythm Neurologic/Psychiatric: Alert, Oriented x3 Results/Procedures Lab Laboratory Tests 09/02/20 05:00 Patient resulted labs reviewed. Assessment/Plan Assessment and Plan Assess & Plan/Chief Complaint Assessment: COVID-19 pneumonia Hypoxia Hypertension Depression Hypertension Chronic debility Plan: Pulmonary consult Monitor closely 08/26/2020: Patient not compliant with ProAir inhaler or incentive spirometer or prone position Patient declining will transfer to the ICU due to increasing oxygen requirements 08/27/2020: BiPAP High risk for intubation Actemra to be infused 08/28/2020: Supportive care BiPAP High risk for intubation 08/29/2020: Slow recovery Monitor closely High risk for intubation 08/30/2020: BiPAP Supportive care 08/31/2020: Vapotherm Monitor closely Improving Still critical 09/01/2020: Transfer to floor Supportive care Improved 09/02/2020: Dramatically improved Continue treatment Critical Care Critically Ill Patient Diagnosis/Problems Diagnosis/Problems (1) Pneumonia due to COVID-19 virus Status: Acute (2) Acute respiratory failure with hypoxia Status: Acute (3) Smoker Status: Acute KAMINI ELI DO Sep 02, 2020 05:30
[2020-09-02 05:31] LABS: ALBUMIN 3.6 GM/DL (3.2-4.5); POTASSIUM 4.2 MMOL/L (3.6-5.0)
[2020-09-02 05:32] LABS: CALCIUM 9.3 MG/DL (8.5-10.1)
[2020-09-02 05:34] LABS: TOTAL PROTEIN 6.6 GM/DL (6.4-8.2)
[2020-09-02 05:35] LABS: BILIRUBIN,TOTAL 0.3 MG/DL (0.1-1.0)
[2020-09-02 05:37] LABS: CREATININE SERUM 0.75 MG/DL (0.60-1.30)
--- NOTE | 2020-09-02 07:16 | Diagnostic Imaging Report ---
EXAMINATION: Portable semierect AP chest at 532 hours. INDICATION: Respiratory distress. FINDINGS: The heart is stable in size when compared to the prior exam of 08/29/2020. The alveolar/interstitial pulmonary infiltrates involving both lungs seen on the prior study are again evident. The abnormal densities in the left lung are essentially no different but there has been a slight increase in the alveolar/interstitial infiltrates in the right lung base. The upper lungs are generally clear. The mediastinum is not widened. The osseous structures are intact. The central venous catheter on the left is unchanged in position. IMPRESSION: The appearance of the chest has worsened somewhat since the prior exam as there is slightly greater involvement of the right lung base by pneumonia/atelectasis. A follow-up study would be recommended for continued evaluation. Dictated by: Dictated on workstation # [id number]
--- NOTE | 2020-09-02 08:33 | Pulmonary Progress Note ---
Subjective Date Seen by a Provider: Sep 02, 2020 Time Seen by a Provider: 08:32 Subjective/Events-last exam events over night: improved; still has sob and occasional cough on vapotherm 50% Sepsis Event Evaluation Height, Weight, BMI Height: 5'5.00" Weight: 218lbs. 0.0oz. 98.630349dv; 36.89 BMI Method:Stated Exam Exam Patient acknowledged, consented, and participated in this virtual visit which was conducted using real time audio/video Vital Signs Date Time Temp Pulse Resp B/P (MAP) Pulse Ox O2 Delivery O2 Flow Rate FiO2 09/02/20 07:36 36.2 60 22 141/89 (106) 97 NIV Bilevel 35.00 50.00 09/02/20 04:41 36.1 56 20 113/76 (88) 97 Vapotherm 40.00 50.00 09/02/20 02:42 96 Vapotherm 40.00 50 09/02/20 00:10 36.2 75 20 101/69 (80) 97 Vapotherm 40.00 50.00 09/01/20 21:26 Vapotherm 40.00 75 09/01/20 19:18 36.4 84 20 128/87 (101) 96 Vapotherm 40.00 50.00 09/01/20 15:39 36.0 83 20 114/80 (91) 97 Vapotherm 40.00 50.00 09/01/20 14:23 99 Vapotherm 40.00 75 09/01/20 11:45 36.3 09/01/20 10:00 80 36 136/92 (107) 97 Vapotherm 40.00 75.00 09/01/20 09:55 Vapotherm 40.00 75.00 09/01/20 09:52 100 Vapotherm 40.00 100 09/01/20 09:39 35.9 76 16 118/90 (99) 100 Vapotherm 40.00 100.00 09/01/20 09:00 61 20 118/90 (99) 96 NIV Bilevel 45.00 09/01/20 08:35 Vapotherm 40.00 75 I & O 09/02/20 06:59 Intake Total 2100 ml Output Total 1600 ml Balance 500 ml Height & Weight Height: 5'5.00" Weight: 218lbs. 0.0oz. 98.177556ki; 36.89 BMI Method:Stated General Appearance: No Apparent Distress, WD/WN, Chronically ill HEENT: PERRL/EOMI, Normal ENT Inspection, Pharynx Normal, Moist Mucous Membra kin Neck: Full Range of Motion, Normal Inspection, Non Tender Respiratory: Lungs Clear, Normal Breath Sounds, Decreased Breath Sounds Cardiovascular: Regular Rate, Rhythm Capillary Refill: Less Than 3 Seconds Gastrointestinal: normal bowel sounds, non tender, soft Extremity: Normal Capillary Refill, Normal Inspection, Normal Range of Motion, Non Tender, No Calf Tenderness, No Pedal Edema, Pedal Edema, Other (trace leg edema, has Alonso, will keep, 2 peripheral IV's) Neurologic/Psychiatric: Alert, Oriented x3, Depressed Affect Skin: Normal Color, Warm/Dry Lymphatic: No Adenopathy Results Lab Laboratory Tests 09/01/20 04:33 09/02/20 05:00 Assessment/Plan Assessment/Plan Acute hypoxemic resp failure in the context of COVID PNA -dexamethasone -worsening cxray:we will check d dimee/ abg -may need VTE work up -on O2 vapotherm PT MORA MCCOY MD Sep 02, 2020 08:33
[2020-09-02 09:07] LABS: ABG BASE EXCESS 3.7 MMOL/L (-2.5-2.5); ABG OXYGEN SATURATION 92 % (94-100); ABG PCO2 39 MMHG (35-45); ABG PH 7.46 (7.37-7.43); ABG PO2 59 MMHG (79-93); ABG TCO2 28.8 MMOL/L (21.0-31.0); ALLENS TEST YES-POS
[2020-09-02 09:08] LABS: INSPIRED O2 30L/50%; PATIENT TEMP 97.1; VENTILATOR NO
[2020-09-02] MEDS: polyethylene glycoL POWDER 17 GM (MIRALAX) PACK PO SCH ×2 (09:17→21:19)
[2020-09-02] MEDS: PANTOPRAZOLE 40 MG (PROTONIX) TAB PO SCH (09:17)
[2020-09-02] MEDS: SENNA W/DOCUSATE (SENOKOT S) TABLET PO SCH ×2 (09:17→21:20)
[2020-09-02] MEDS: ENOXAPARIN 40 MG/0.4 ML (LOVENOX) SYR SC SCH ×2 (09:27→21:10)
--- NOTE | 2020-09-02 11:53 | Physical Therapy Evaluation ---
PT Evaluation-General Medical Diagnosis Admission Date Aug 24, 2020 at 11:30 Medical Diagnosis: Covid/hypoxia Onset Date: Aug 24, 2020 Therapy Diagnosis Therapy Diagnosis: debility Height/Weight Height (Feet): 5 Height (Inches): 5.00 Weight (Pounds): 218 Weight (Ounces): 0.0 Precautions Precautions/Isolations: Contact Isolation, Droplet Isolation, Fall Prevention Referral Physician: Bety Reason for Referral: Evaluation/Treatment Medical History Pertinent Medical History: HTN, Smoking Current History ER secondary to Covid symptoms Reviewed History: Yes Social History Home: Single Level Current Living Status: Alone Prior Prior Level of Function SCALE: Activities may be completed with or without assistive devices. 1-Pmgruzaiie-qwoagan completes the activity by him/herself with no assistance from a helper. 5-Set-up or Clean-up Assistance-helper sets up or cleans up; patient completes activity. [place] assists only prior to or following the activity. 4-Supervision or Touching Assistance-helper provides verbal cues and/or touchi ng/steadying and/or contact guard assistance as patient completes activity. Assistance may be provided throughout the activity or intermittently. 3-Partial/Moderate Assistance-helper does LESS THAN HALF the effort. [place] lifts, holds or supports trunk or limbs, but provides less than half the effort. 2-Substantial/Maximal Assistance-helper does MORE THAN HALF the effort. [place] lifts or holds trunk or limbs and provides more than half the effort. 9-Ugzblotnb-xzenzx does ALL the effort. Patient does none of the effort to complete the activity. Or, the assistance of 2 or more helpers is required for the patient to complete the activity. If activity was not attempted, code reason: 7-Patient Refused. 9-Not Applicable-not attempted and the patient did not perform the activity before the current illness, exacerbation or injury. 10-Not Attempted due to Environmental Limitations-(lack of equipment, weather restraints, etc.). 88-Not Attempted due to Medical Conditions or Safety Concerns. Bed Mobility: 6 Transfers (B,C,W/C): 6 Gait: 6 Stairs: 6 Indoor Mobility (Ambulation): Independent Stairs: Independent Prior Devices Use: Other-see list below Prior Device Use: cane/CAM boot right PT Evaluation-Current Subjective Patient agrees to PT. Objective Patient Orientation: Normal For Age Attachments: Oxygen (vapotherm), Alonso Catheter ROM/Strength ROM Lower Extremities bilateral LE WFL Strength Lower Extremities 4/5 grossly bilateral LE Integumentary/Posture Bowel Incontinence: No Bladder Incontinence: Alonso Cath Posture WFL Neuromuscular (Tone, Coordination, Reflexes) WFL/grossly intact Sensory Vision: Functional Hearing: Functional Sensation Right Lower Extremit: Intact Sensation Left Lower Extremity: Intact Transfers Roll Left to Right (QC): 6 Lying to Sitting/Side of Bed(Q: 6 Sit to Stand (QC): 6 Chair/Nee-lm-Fcueh Xfer(QC): 6 Gait Does the Patient Walk?: Yes Mode of Locomotion: Walk Anticipated Mode of Locomotion: Walk Walk 10 feet (QC): 6 Distance: 10' x 2 Gait Assistive Device: Cane Single Point Comments/Gait Description patient donns CAM boot independently to ambulate/restricted by Vapotherm tubing Wheelchair Training Does the Pt Use a Wheelchair?: No Balance Sitting Static: Normal Sitting Dynamic: Normal Standing Static: Normal Standing Dynamic: Normal Assessment/Needs SAO2 decreases to 86% with activity with quick recovery. Patient instructed to perform deep breathing exercises with trunk rotation R/L and to stand PRN to perform standing deep breathing. Patient voiced understanding. Rehab Potential: Fair PT Short Term Goals Short Term Goals Time Frame: Sep 06, 2020 Roll Left & Right: 6 Sit to lyin Lying to sitting on side of be: 6 Sit to stand: 6 Chair/yao-oc-qcrwg transfer: 6 Toilet transfer: 6 Walk 10 feet: 6 Walk 50 feet with two turns: 6 Walk 150 feet: 6 PT Plan Problem List Problem List: Activity Tolerance Treatment/Plan Treatment Plan: Continue Plan of Care Treatment Plan: Education, Functional Activity Levi, Therapeutic Exercise Treatment Duration: Sep 06, 2020 Frequency: 5 times per week Estimated Hrs Per Day: .25 hour per day Patient and/or Family Agrees t: Yes Time/GCodes Time In: 1042 Time Out: 1053 Total Billed Treatment Time: 11 Total Billed Treatment 1 visit EVModC 11 min IHSAN MIRZA PT Sep 02, 2020 11:53
--- NOTE | 2020-09-02 16:04 | Occupational Therapy Eval ---
OT Evaluation-General/PLF Medical Diagnosis Admission Date Aug 24, 2020 at 11:30 Medical Diagnosis: Covid/hypoxia Onset Date: Aug 24, 2020 Therapy Diagnosis Therapy Diagnosis: Weakness Height/Weight Height (Feet): 5 Height (Inches): 5.00 Weight (Pounds): 218 Weight (Ounces): 0.0 Precautions Precautions/Isolations: Contact Isolation, Droplet Isolation, Fall Prevention Referral Physician: Bety Referral Reason: Activity Tolerance, Self Care, Evaluation/Treatment, Strengthening/ROM Medical History Pertinent Medical History: HTN, Smoking Additional Medical History Anxiety, depression, bladder infections, ankle surgery, walking boot left LE Reviewed History: Yes Social History Home: Single Level Current Living Status: Children ADL-Prior Level of Function SCALE: Activities may be completed with or without assistive devices. 5-Psgceveqhq-jqqgumf completes the activity by him/herself with no assistance from a helper. 5-Set-up or Clean-up Assistance-helper sets up or cleans up; patient completes activity. [place] assists only prior to or following the activity. 4-Supervision or Touching Assistance-helper provides verbal cues and/or touching/steadying and/or contact guard assistance as patient completes activity. Assistance may be provided throughout the activity or intermittently. 3-Partial/Moderate Assistance-helper does LESS THAN HALF the effort. [place] lifts, holds or supports trunk or limbs, but provides less than half the effort. 2-Substantial/Maximal Assistance-helper does MORE THAN HALF the effort. [place] lifts or holds trunk or limbs and provides more than half the effort. 1-Klemmsvgk-eyzshs does ALL the effort. Patient does none of the effort to complete the activity. Or, the assistance of 2 or more helpers is required for the patient to complete the activity. If activity was not attempted, code reason: 7-Patient Refused. 9-Not Applicable-not attempted and the patient did not perform the activity befo re the current illness, exacerbation or injury. 10-Not Attempted due to Environmental Limitations-(lack of equipment, weather re straints, etc.). 88-Not Attempted due to Medical Conditions or Safety Concerns. ADL PLOF Comments Pt. lives with her 8 year old and 14 year old children. Her mother assists her as needed. Pt. recovering from ankle surgery in March. She wears a walking boot and uses a cane, but states that she was still gaining strength from that surgery. Pt. states that she is independent with daily task such as bathing/dressing, driving. She does not currently work. Self Care: Independent Functional Cognition: Independent Drive Self: Yes OT Current Status Subjective No pain reported. Mental Status/Objective Patient Orientation: Person, Place, Time, Situation Current Upper Extremity ROM WFL Upper Extremity Strength 3+/5 ADL-Treatment Eating (QC): 6 Oral Hygiene (QC): 5 (per pt.) Lower Body Dressing (QC): 5 (per pt.) On/Off Footwear (QC): 6 Toileting Hygiene (QC): 4 (per pt.) Other Treatments Pt. currently on vapotherm. She is unable to ambulate throughout room, but is able to transfer to side of bed and is able to transfer to [facility] [place] [place]. Pt. verbalizes that she has been able to cleanse self after toileting. She is able to don her own walking boot, and was able to ambulate with cane to chair in room. Pt. is functionally able to move, but verbalizes decreased endurance and SOA when doing so. OT educates pt. greatly on need of doing breathing exercises, need of being upright in chair throughout day, and need to ambulate in home when she is able to go home. Pt. and OT also talk about different methods of making day to day tasks easier, such as getting groceries, accepting help from others when it is offered, etc. Pt states that her mother will assist her and will stay with her and her kids as needed. Pt. encouraged to take her time for recovery when getting home. OT to bring in items for continued UE strengthening/endurance training, such as theraband. Pt. does not have current needs and reports being comfortable at bed level. Education OT Patient Education: Correct positioning, Modified ADL techniques, Progress toward Goal/Update tx plan, Purpose of tx/functional activities, Reviewed precautions, Rehab process Teaching Recipient: Patient OT Intermediate Goals [place] Goals Time Frame: Sep 09, 2020 Additional Goals: 1-Demonstrate ADL Tasks, 2-Verbalize Understanding, 3- ImproveStrength/Levi 1=Demonstrate adherence to instructed precautions during ADL tasks. 2=Patient will verbalize/demonstrate understanding of assistive devices/modific ations for ADL. 3=Patient will improve strength/tolerance for activity to enable patient to perform ADL's. OT Education/Plan Problem List/Assessment Assessment: Decreased Activ Tolerance Discharge Recommendations Plan/Recommendations: Continue POC Treatment Plan/Plan of Care Treatment,Training & Education: Yes Patient would benefit from OT for education, treatment and training to promote independence in ADL's, mobility, safety and/or upper extremity function for ADL's. Plan of Care: Functional Mobility, UE Funct Exercise/Act Treatment Duration: Sep 09, 2020 Frequency: 5 times per week Estimated Hrs Per Day: .25 hour per day Agreement: Yes Rehab Potential: Fair Time/GCodes Start Time: 14:20 Stop Time: 14:47 Total Time Billed (hr/min): 27 Billed Treatment Time 1, FELIPE GUILLERMO OT Sep 02, 2020 16:04
[2020-09-02] MEDS: amLODIPine 5 MG (NORVASC) TAB PO SCH (21:10)
[2020-09-02] MEDS: lisINopril 20 MG (PRINIVIL) TABLET PO SCH (21:10)
[2020-09-02] MEDS: DULoxetine 30 MG (CYMBALTA) CAP PO SCH (21:10)
[2020-09-02] MEDS: MELATONIN 3 MG TABLET PO PRN (21:27)
[2020-09-02] MEDS: ALPRAZolam 0.25 MG (XANAX) TAB PO PRN (21:27)
[2020-09-03] MEDS: RT-ALBUTEROL INHALER HFA (VENTOLIN HFA) 18 GM IH SCH ×6 (02:07→21:35)
[2020-09-03 04:41] VITALS: BP 119/77
--- NOTE | 2020-09-03 05:18 | Progress Note - Hospitalist ---
Subjective HPI/CC On Admission Date Seen by Provider: Sep 03, 2020 Time Seen by Provider: 10:00 CC: SOB with fever HPI: This is a 39yoWF clinic Pt of [facility] Porsha who is unvaccinated against Covid-19 who presented with fever and chills and SOB found to have Covid-19 pneumonia to the [place] [facility]. Currently Pt is feeling about the same, she is not using her IS as instructed. Pulmonology will be consulted, we will also heplock her IV fluid, restart her Decadron of 6 mg daily and will watch for increasing oxygen requirements since she has gone from two liters to five liters. We will go ahead and initiate a regular diet. Subjective/Events-last exam Pt dramatically improved Oxygen maintained on Vapotherm but weaning Denies any other significant problems Updated her on the plan Review of Systems General: Fatigue, Malaise Pulmonary: Dyspnea Objective Exam Vital Signs Vital Signs Date Time Temp Pulse Resp B/P (MAP) Pulse Ox O2 Delivery O2 Flow Rate FiO2 09/03/20 19:31 High Flow N/C 4.00 09/03/20 19:21 36.4 91 16 120/71 (87) 95 09/03/20 10:35 30 Capillary Refill : Less Than 3 Seconds General Appearance: No Apparent Distress, WD/WN, Chronically ill Respiratory: Lungs Clear, No Accessory Muscle Use, No Respiratory Distress, Decreased Breath Sounds Cardiovascular: Regular Rate, Rhythm Neurologic/Psychiatric: Alert, Oriented x3, No Motor/Sensory Deficits, Normal Mood/Affect Results/Procedures Lab Laboratory Tests 09/03/20 06:40 Patient resulted labs reviewed. Assessment/Plan Assessment and Plan Assess & Plan/Chief Complaint Assessment: COVID-19 pneumonia Hypoxia Hypertension Depression Hypertension Chronic debility Plan: Pulmonary consult Monitor closely 08/26/2020: Patient not compliant with ProAir inhaler or incentive spirometer or prone position Patient declining will transfer to the ICU due to increasing oxygen requirements 08/27/2020: BiPAP High risk for intubation Actemra to be infused 08/28/2020: Supportive care BiPAP High risk for intubation 08/29/2020: Slow recovery Monitor closely High risk for intubation 08/30/2020: BiPAP Supportive care 08/31/2020: Vapotherm Monitor closely Improving Still critical 09/01/2020: Transfer to floor Supportive care Improved 09/02/2020: Dramatically improved Continue treatment 09/03/2020: Continue to wean off Vapotherm Supportive care Much improved Critical Care Critically Ill Patient Diagnosis/Problems Diagnosis/Problems (1) Pneumonia due to COVID-19 virus Status: Acute (2) Acute respiratory failure with hypoxia Status: Acute (3) Smoker Status: Acute KAMINI ELI DO Sep 03, 2020 05:18
[2020-09-03 06:49] LABS: BASOPHILS % (AUTO) 0 % (0-10); EOSINOPHILS # (AUTO) 0.2 10^3/uL (0.0-0.3); EOSINOPHILS % (AUTO) 1 % (0-10); HEMATOCRIT 41 % (35-52); HEMOGLOBIN 13.1 g/dL (11.5-16.0); LYMPHOCYTES # (AUTO) 3.9 10^3/uL (1.0-4.0); LYMPHOCYTES % (AUTO) 25 % (12-44); MEAN CORPUSCULAR HEMOGLOBIN 28 pg (25-34); MEAN CORPUSCULAR HGB CONC 32 g/dL (32-36); MEAN CORPUSCULAR VOLUME 86 fL (80-99); MEAN PLATELET VOLUME 9.5 fL (9.0-12.2); MONOCYTES # (AUTO) 1.3 10^3/uL (0.0-1.0); MONOCYTES % (AUTO) 8 % (0-12); NEUTROPHILS # (AUTO) 9.5 10^3/uL (1.8-7.8); NEUTROPHILS % (AUTO) 62 % (42-75); PLATELET COUNT 470 10^3/uL (130-400); WHITE BLOOD COUNT 15.3 10^3/uL (4.3-11.0)
[2020-09-03 07:12] LABS: BAND NEUTROPHILS 0 %; LYMPHOCYTES % (MANUAL) 23 %; NEUTROPHILS % (MANUAL) 67 %
[2020-09-03 07:13] LABS: BASOPHILS % (MANUAL) 0 %; EOSINOPHILS % (MANUAL) 0 %; MONOCYTES % (MANUAL) 10 %; RBC MORPH NORMAL
[2020-09-03 07:17] LABS: ALBUMIN 3.7 GM/DL (3.2-4.5); BILIRUBIN,TOTAL 0.4 MG/DL (0.1-1.0); CALCIUM 9.5 MG/DL (8.5-10.1); CREATININE SERUM 0.78 MG/DL (0.60-1.30); POTASSIUM 4.1 MMOL/L (3.6-5.0); TOTAL PROTEIN 6.8 GM/DL (6.4-8.2)
[2020-09-03 08:00] VITALS: BP 118/75
[2020-09-03] MEDS: PANTOPRAZOLE 40 MG (PROTONIX) TAB PO SCH (08:10)
[2020-09-03] MEDS: SENNA W/DOCUSATE (SENOKOT S) TABLET PO SCH ×2 (08:12→20:20)
[2020-09-03] MEDS: polyethylene glycoL POWDER 17 GM (MIRALAX) PACK PO SCH ×2 (08:12→20:20)
--- NOTE | 2020-09-03 10:48 | Occ Therapy Progress Note ---
Therapy Progress Note Difficult to wake pt, woke to name and touch on lower leg. Pt did not open eyes when talking. I introduced myself and explained that I was OT and was there to give pt an exercise program. Requested for pt to try and complete exercise, pt declined wanted to do later. Pt stated she would rather complete tomorrow. Left medium resistance theraband and HEP in room. [id number] 1 visit refusal CLEMENTINA GUZMÁN Sep 03, 2020 10:48
--- NOTE | 2020-09-03 10:52 | Physical Therapy Progress Note ---
Therapy Progress Note Patient adamantly declined stating, "I can do it all by myself. I don't need PT anymore." PT educated patient on importance of performing breathing exercises and OOB activity and patient states she is able to do it on her own. PT to dismiss patient from services at this time. Patient is independent with all mobility without difficulty. 1 ref ([id number]) IHSAN MIRZA PT Sep 03, 2020 10:52
[2020-09-03] MEDS: ENOXAPARIN 40 MG/0.4 ML (LOVENOX) SYR SC SCH (11:41)
[2020-09-03 12:00] VITALS: BP 119/79
--- NOTE | 2020-09-03 14:26 | Pulmonary Progress Note ---
Subjective Date Seen by a Provider: Sep 03, 2020 Time Seen by a Provider: 14:21 Subjective/Events-last exam 39 yo F with, COVID PNA, out of ICU, breathing is better but SOB on exertion. Sx started 3 wk ago, Some chest pain on coughing, Blanca not lose taste or smell sense Pt on 5 lpm hi flow, SpO2 have been in 90's, lowest drop is 91%. On po decadron 4 mg/d Review of Systems Pulmonary: Dyspnea Sepsis Event Evaluation Height, Weight, BMI Height: 5'5.00" Weight: 218lbs. 0.0oz. 98.785097pf; 36.89 BMI Method:Stated Exam Exam Patient acknowledged, consented, and participated in this virtual visit which was conducted using real time audio/video Vital Signs Date Time Temp Pulse Resp B/P (MAP) Pulse Ox O2 Delivery O2 Flow Rate FiO2 09/03/20 12:00 35.8 79 22 119/79 (92) 95 High Flow N/C 5.00 09/03/20 10:35 Vapotherm 20.00 30 09/03/20 09:00 Vapotherm 15.00 30 09/03/20 08:00 36.0 72 21 118/75 (89) 100 Vapotherm 15.00 30.00 09/03/20 06:48 Vapotherm 20.00 40 09/03/20 04:41 36.4 80 20 119/77 (91) 94 Vapotherm 20.00 40.00 09/03/20 02:08 98 Vapotherm 20.00 40 09/02/20 23:58 36.1 80 20 134/88 (103) 97 Vapotherm 20.00 50.00 09/02/20 22:04 36.2 91 95 09/02/20 21:00 Vapotherm 20.00 50 09/02/20 19:20 36.2 91 20 126/89 (101) 95 NIV Bilevel 20.00 50.00 09/02/20 18:28 95 Vapotherm 20.00 50 09/02/20 16:07 36.2 77 20 120/81 (94) 97 NIV Bilevel 20.00 50.00 09/02/20 15:05 96 Vapotherm 25.00 50 I & O 09/03/20 06:59 Intake Total 2780 ml Output Total 2077 ml Balance 703 ml Height & Weight Height: 5'5.00" Weight: 218lbs. 0.0oz. 98.086688sn; 36.89 BMI Method:Stated General Appearance: No Apparent Distress, WD/WN, Chronically ill HEENT: PERRL/EOMI, Normal ENT Inspection, Pharynx Normal, Moist Mucous Membranes Neck: Full Range of Motion, Normal Inspection, Non Tender Respiratory: Lungs Clear, Normal Breath Sounds Cardiovascular: Regular Rate, Rhythm Capillary Refill: Less Than 3 Seconds Gastrointestinal: normal bowel sounds, non tender, soft Extremity: Normal Capillary Refill, Normal Inspection, Normal Range of Motion, Non Tender, No Calf Tenderness, No Pedal Edema, Pedal Edema, Other (trace leg edema, has Alonso, will keep, 2 peripheral IV's) Neurologic/Psychiatric: Alert, Oriented x3 Skin: Normal Color, Warm/Dry Lymphatic: No Adenopathy Results Lab Laboratory Tests 09/02/20 05:00 09/03/20 06:40 Assessment/Plan Assessment/Plan Continues to improve, will keep on Decadron and monitor oxygenation While CXR read as a little worse I would pay more attention on SpO2 and how pt feels WIll follow up tomorrow. Time spent with patient (mins): 15 MONCHO DUNAWAY MD Sep 03, 2020 14:26
[2020-09-03 15:22] VITALS: BP 113/73
[2020-09-03 19:21] VITALS: BP 120/71
[2020-09-03] MEDS: DULoxetine 30 MG (CYMBALTA) CAP PO SCH (20:19)
[2020-09-03] MEDS: MELATONIN 3 MG TABLET PO PRN (20:19)
[2020-09-03] MEDS: amLODIPine 5 MG (NORVASC) TAB PO SCH (20:20)
[2020-09-03] MEDS: lisINopril 20 MG (PRINIVIL) TABLET PO SCH (20:20)
[2020-09-04] VITALS (7 sets, daily range): BP systolic 103–126; BP diastolic 64–81
[2020-09-04] MEDS: ENOXAPARIN 40 MG/0.4 ML (LOVENOX) SYR SC SCH ×3 (00:15→23:39)
[2020-09-04] MEDS: RT-ALBUTEROL INHALER HFA (VENTOLIN HFA) 18 GM IH SCH ×4 (01:09→15:11)
[2020-09-04 04:17] LABS: BASOPHILS % (AUTO) 0 % (0-10); EOSINOPHILS # (AUTO) 0.1 10^3/uL (0.0-0.3); EOSINOPHILS % (AUTO) 1 % (0-10); HEMATOCRIT 41 % (35-52); LYMPHOCYTES # (AUTO) 3.7 10^3/uL (1.0-4.0); LYMPHOCYTES % (AUTO) 21 % (12-44); MEAN CORPUSCULAR HEMOGLOBIN 28 pg (25-34); MEAN CORPUSCULAR HGB CONC 32 g/dL (32-36); MEAN CORPUSCULAR VOLUME 86 fL (80-99); MEAN PLATELET VOLUME 9.5 fL (9.0-12.2); MONOCYTES # (AUTO) 1.6 10^3/uL (0.0-1.0); MONOCYTES % (AUTO) 9 % (0-12); NEUTROPHILS # (AUTO) 11.9 10^3/uL (1.8-7.8); NEUTROPHILS % (AUTO) 66 % (42-75); PLATELET COUNT 517 10^3/uL (130-400); WHITE BLOOD COUNT 17.9 10^3/uL (4.3-11.0)
[2020-09-04 04:25] LABS: ALBUMIN 3.9 GM/DL (3.2-4.5)
[2020-09-04 04:26] LABS: POTASSIUM 4.2 MMOL/L (3.6-5.0)
[2020-09-04 04:27] LABS: CALCIUM 9.6 MG/DL (8.5-10.1)
[2020-09-04 04:28] LABS: TOTAL PROTEIN 6.9 GM/DL (6.4-8.2)
[2020-09-04 04:30] LABS: BILIRUBIN,TOTAL 0.3 MG/DL (0.1-1.0)
[2020-09-04 04:32] LABS: CREATININE SERUM 0.84 MG/DL (0.60-1.30)
--- NOTE | 2020-09-04 05:30 | Progress Note - Hospitalist ---
Subjective HPI/CC On Admission Date Seen by Provider: Sep 04, 2020 Time Seen by Provider: 11:00 CC: SOB with fever HPI: This is a 39yoWF clinic Pt of [facility] VALERY who is unvaccinated against Covid-19 who presented with fever and chills and SOB found to have Covid-19 pneumonia to the [place] ER. Currently Pt is feeling about the same, she is not using her IS as instructed. Pulmonology will be consulted, we will also heplock her IV fluid, restart her Decadron of 6 mg daily and will watch for increasing oxygen requirements since she has gone from two liters to five liters. We will go ahead and initiate a regular diet. Subjective/Events-last exam Pt dramatically improved PT and OT signed off she is AD MARCO A On room air Only requiring 1 half liter last night Will DC on Tuesday No meds and or other changes indicated Review of Systems General: Fatigue Objective Exam Vital Signs Vital Signs Date Time Temp Pulse Resp B/P (MAP) Pulse Ox O2 Delivery O2 Flow Rate FiO2 09/04/20 20:08 37.1 103 20 122/77 (92) 92 Room Air 09/04/20 15:12 20 09/04/20 09:33 0.50 Capillary Refill : Less Than 3 Seconds General Appearance: No Apparent Distress, WD/WN Respiratory: Lungs Clear, Normal Breath Sounds Cardiovascular: Regular Rate, Rhythm Neurologic/Psychiatric: Alert, Oriented x3 Results/Procedures Lab Laboratory Tests 09/04/20 04:00 Patient resulted labs reviewed. Assessment/Plan Assessment and Plan Assess & Plan/Chief Complaint Assessment: COVID-19 pneumonia Hypoxia Hypertension Depression Hypertension Chronic debility Plan: Pulmonary consult Monitor closely 08/26/2020: Patient not compliant with ProAir inhaler or incentive spirometer or prone position Patient declining will transfer to the ICU due to increasing oxygen requirements 08/27/2020: BiPAP High risk for intubation Actemra to be infused 08/28/2020: Supportive care BiPAP High risk for intubation 08/29/2020: Slow recovery Monitor closely High risk for intubation 08/30/2020: BiPAP Supportive care 08/31/2020: Vapotherm Monitor closely Improving Still critical 09/01/2020: Transfer to floor Supportive care Improved 09/02/2020: Dramatically improved Continue treatment 09/03/2020: Continue to wean off Vapotherm Supportive care Much improved 09/04/2020: Discharge home tomorrow Critical Care Critically Ill Patient Diagnosis/Problems Diagnosis/Problems (1) Pneumonia due to COVID-19 virus Status: Acute (2) Acute respiratory failure with hypoxia Status: Acute (3) Smoker Status: Acute KAMINI ELI DO Sep 04, 2020 05:30
--- NOTE | 2020-09-04 08:01 | Diagnostic Imaging Report ---
INDICATION: Pneumonia. COMPARISON: 09/02/2020 FINDINGS: The heart size is normal. There are patchy bilateral pulmonary infiltrates. There is no pleural fusion or pneumothorax. The mediastinum is unremarkable. PICC line has its tip in the superior vena cava. IMPRESSION: Patchy bilateral pulmonary infiltrates suspect for atypical pneumonia possibly Covid. Dictated by: Dictated on workstation # [id number]
[2020-09-04] MEDS: SENNA W/DOCUSATE (SENOKOT S) TABLET PO SCH ×2 (09:26→20:22)
[2020-09-04] MEDS: polyethylene glycoL POWDER 17 GM (MIRALAX) PACK PO SCH ×2 (09:26→20:22)
[2020-09-04] MEDS: PANTOPRAZOLE 40 MG (PROTONIX) TAB PO SCH (09:27)
--- NOTE | 2020-09-04 12:25 | Pulmonary Progress Note ---
Subjective Date Seen by a Provider: Sep 04, 2020 Time Seen by a Provider: 12:23 Subjective/Events-last exam Events over night O2 being weaned off to ra walking better; cough improved vaccine to be consdered. Sepsis Event Evaluation Height, Weight, BMI Height: 5'5.00" Weight: 218lbs. 0.0oz. 98.878984gl; 36.89 BMI Method:Stated Exam Exam Patient acknowledged, consented, and participated in this virtual visit which was conducted using real time audio/video Vital Signs Date Time Temp Pulse Resp B/P (MAP) Pulse Ox O2 Delivery O2 Flow Rate FiO2 09/04/20 12:00 36.2 90 20 126/81 (96) 91 Room Air 09/04/20 10:48 93 Room Air 09/04/20 09:33 96 High Flow N/C 0.50 09/04/20 08:00 35.8 77 18 118/77 (91) 96 High Flow N/C 0.50 09/04/20 07:09 High Flow N/C 0.50 09/04/20 04:31 36.4 71 16 105/72 (83) 98 High Flow N/C 3.00 09/04/20 01:09 High Flow N/C 1.00 09/04/20 00:32 36.6 91 16 109/75 (86) 98 High Flow N/C 3.00 09/03/20 22:37 High Flow N/C 4.00 09/03/20 21:35 High Flow N/C 4.00 09/03/20 21:00 High Flow N/C 4.00 09/03/20 19:31 High Flow N/C 4.00 09/03/20 19:21 36.4 91 16 120/71 (87) 95 High Flow N/C 3.00 09/03/20 15:22 36.4 90 18 113/73 (86) 97 High Flow N/C 4.00 09/03/20 14:37 High Flow N/C 4.00 I & O 09/04/20 07:00 Intake Total 1730 ml Output Total 1200 ml Balance 530 ml Height & Weight Height: 5'5.00" Weight: 218lbs. 0.0oz. 98.603888qr; 36.89 BMI Method:Stated General Appearance: No Apparent Distress, WD/WN, Chronically ill HEENT: PERRL/EOMI, Normal ENT Inspection, Pharynx Normal, Moist Mucous Membranes Neck: Full Range of Motion, Normal Inspection, Non Tender Respiratory: Lungs Clear, No Accessory Muscle Use, No Respiratory Distress, Decreased Breath Sounds Cardiovascular: Regular Rate, Rhythm Capillary Refill: Less Than 3 Seconds Gastrointestinal: normal bowel sounds, non tender, soft Extremity: Normal Capillary Refill, Normal Inspection, Normal Range of Motion, Non Tender, No Calf Tenderness, No Pedal Edema, Pedal Edema, Other (trace leg edema, has Alonso, will keep, 2 peripheral IV's) Neurologic/Psychiatric: Alert, Oriented x3, No Motor/Sensory Deficits, Normal Mood/Affect Skin: Normal Color, Warm/Dry Lymphatic: No Adenopathy Results Lab Laboratory Tests 09/03/20 06:40 09/04/20 04:00 Assessment/Plan Assessment/Plan Acute hypoxemic resp failure in the context of COVID PNA -wean off o2 -dexa -consider one dose of lasix -increased of wbc prompted procal eval- wnl; no major changes exercise o2 eval MORA MCCOY MD Sep 04, 2020 12:25
[2020-09-04] MEDS ORDERED: FUROSEMIDE 40 MG/4 ML INJ (LASIX) IVP ONE (12:30)
[2020-09-04] MEDS ORDERED: FUROSEMIDE 40 MG/4 ML INJ (LASIX) ONE (12:33)
--- NOTE | 2020-09-04 13:02 | Occ Therapy Progress Note ---
Therapy Progress Note Pt. seen this date by Occupational therapist regarding education for continued strength and independence with ADL skills before return home. Pt. is independent up in room. She is taking self to bathroom and able to toilet self, don walking boot, underwear, etc. Pt. educated on HEP again, and verbalizes understanding of theraband exercises. She was given them yesterday as well but states she has not completed yet. Pt. removed from oxygen completed while OT in room by RT, and sats remained at 93-94%. RT/nursing removed oxygen and will continued to monitor. Pt. verbalizes no continued need for OT at this time, and will be discharging home soon. No further OT warranted. 1, visit x 10minutes [id number] Discharge OT FELIPE CHIRINOS OT Sep 04, 2020 13:02
[2020-09-04] MEDS ORDERED: RT-ALBUTEROL HFA 8.5 GM INHALER IH PRN (15:45)
[2020-09-04] MEDS: RT-ALBUTEROL HFA 8.5 GM INHALER IH SCH (17:48)
[2020-09-04] MEDS: amLODIPine 5 MG (NORVASC) TAB PO SCH (20:20)
[2020-09-04] MEDS: lisINopril 20 MG (PRINIVIL) TABLET PO SCH (20:20)
[2020-09-04] MEDS: DULoxetine 30 MG (CYMBALTA) CAP PO SCH (20:20)
[2020-09-04] MEDS: ALPRAZolam 0.25 MG (XANAX) TAB PO PRN (20:25)
[2020-09-05 04:51] LABS: BASOPHILS # (AUTO) 0.1 10^3/uL (0.0-0.1); BASOPHILS % (AUTO) 0 % (0-10); EOSINOPHILS % (AUTO) 0 % (0-10); HEMATOCRIT 40 % (35-52); HEMOGLOBIN 12.9 g/dL (11.5-16.0); LYMPHOCYTES # (AUTO) 3.2 10^3/uL (1.0-4.0); LYMPHOCYTES % (AUTO) 15 % (12-44); MEAN CORPUSCULAR HEMOGLOBIN 28 pg (25-34); MEAN CORPUSCULAR HGB CONC 32 g/dL (32-36); MEAN CORPUSCULAR VOLUME 86 fL (80-99); MEAN PLATELET VOLUME 9.6 fL (9.0-12.2); MONOCYTES # (AUTO) 1.6 10^3/uL (0.0-1.0); MONOCYTES % (AUTO) 8 % (0-12); NEUTROPHILS # (AUTO) 15.9 10^3/uL (1.8-7.8); NEUTROPHILS % (AUTO) 75 % (42-75); PLATELET COUNT 535 10^3/uL (130-400); WHITE BLOOD COUNT 21.4 10^3/uL (4.3-11.0)
[2020-09-05 05:02] LABS: ALBUMIN 3.9 GM/DL (3.2-4.5); POTASSIUM 3.9 MMOL/L (3.6-5.0)
[2020-09-05 05:03] LABS: CALCIUM 9.9 MG/DL (8.5-10.1)
[2020-09-05 05:04] LABS: TOTAL PROTEIN 7.1 GM/DL (6.4-8.2)
[2020-09-05 05:06] LABS: BILIRUBIN,TOTAL 0.3 MG/DL (0.1-1.0)
[2020-09-05 05:08] LABS: CREATININE SERUM 0.83 MG/DL (0.60-1.30)
[2020-09-05] MEDS: RT-ALBUTEROL HFA 8.5 GM INHALER IH SCH ×2 (07:16→11:18)
[2020-09-05] MEDS: PANTOPRAZOLE 40 MG (PROTONIX) TAB PO SCH (07:59)
[2020-09-05 08:00] VITALS: BP 132/79
[2020-09-05] MEDS: polyethylene glycoL POWDER 17 GM (MIRALAX) PACK PO SCH (08:01)
[2020-09-05] MEDS: SENNA W/DOCUSATE (SENOKOT S) TABLET PO SCH (08:01)
--- NOTE | 2020-09-05 10:08 | Tele-ICU Progress Note ---
Subjective Date Seen by a Provider: Sep 05, 2020 Time Seen by a Provider: 09:55 Subjective/Events-last exam Patient acknowledged, consented, and participated in this virtual visit which was conducted using real time audio/video. Thank you for asking us to see this patient for respiratory insufficiency and distress due to Covid pna now much improved and discharging today. HPC: Recent events: Feels much better. PMH:htn SH: smoking history: Yes FH: Non-contributory ROS: feels better PE: VSS O2 sat 95% on RA. Obese. HEENT: No obvious masses, adenopathy or JVD. Chest: clear to auscultation. CV: RRR S1 S2 No murmur or added sounds. Abd: Non-tender. Bowel sounds . : Unremarkable. Alonso . GUEST SERVICE AGENT/psychiatric: Alert and oriented, grossly intact. No obvious focal findings. Extremities: No edema. Capillary refill < 3 seconds. Skin: unremarkable. A/P: Respiratory insufficiency/distress: improved and ready for D/C. Counselled re avoiding cigs/vapes. Video assessment done using teleICU camera. Respiratory: D/C. Time spent with patient/coordination of care with other health professionals (mins): 10 Sepsis Event Evaluation Sepsis Stage: Ruled Out Height, Weight, BMI Height: 5'5.00" Weight: 218lbs. 0.0oz. 98.364824lf; 36.89 BMI Method:Stated Focused Exam Sepsis Stage: Ruled Out Exam Exam Patient acknowledged, consented, and participated in this virtual visit which was conducted using real time audio/video Vital Signs Date Time Temp Pulse Resp B/P (MAP) Pulse Ox O2 Delivery O2 Flow Rate FiO2 09/05/20 09:00 95 Room Air 09/05/20 08:00 35.9 84 18 132/79 (96) 94 Room Air 09/05/20 07:16 95 Room Air 09/04/20 23:40 36.7 101 20 107/69 (82) 93 Room Air 09/04/20 21:00 95 High Flow N/C 2.00 09/04/20 20:08 37.1 103 20 122/77 (92) 92 Room Air 09/04/20 17:48 94 Room Air 09/04/20 16:25 87 88 09/04/20 16:14 36.6 85 20 103/64 (77) 93 Room Air 09/04/20 15:12 93 Room Air 09/04/20 15:12 94 93 20 09/04/20 12:00 36.2 90 20 126/81 (96) 91 Room Air 09/04/20 10:48 93 Room Air I & O 09/05/20 07:00 Intake Total 2520 ml Output Total 1 ml Balance 2519 ml Height & Weight Height: 5'5.00" Weight: 218lbs. 0.0oz. [id number]; 36.89 BMI Method:Stated General Appearance: No Apparent Distress, WD/WN HEENT: PERRL/EOMI, Normal ENT Inspection, Pharynx Normal, Moist Mucous Me mbranes Neck: Full Range of Motion, Normal Inspection, Non Tender Respiratory: Lungs Clear, Normal Breath Sounds Cardiovascular: Regular Rate, Rhythm Capillary Refill: Less Than 3 Seconds Gastrointestinal: normal bowel sounds, non tender, soft Extremity: Normal Capillary Refill, Normal Inspection, Normal Range of Motion, Non Tender, No Calf Tenderness, No Pedal Edema, Pedal Edema, Other (trace leg edema, has Alonso, will keep, 2 peripheral IV's) Neurologic/Psychiatric: Alert, Oriented x3 Skin: Normal Color, Warm/Dry Lymphatic: No Adenopathy Results Lab Laboratory Tests 09/04/20 04:00 09/05/20 04:15 Assessment/Plan Assessment/Plan See free text. Time spent on discussion(mins): 5 Diagnosis/Problems Diagnosis/Problems (1) Pneumonia due to COVID-19 virus Status: Acute (2) Acute respiratory failure with hypoxia Status: Acute MILLER RODAS MD Sep 05, 2020 10:08
[2020-09-05] MEDS: ENOXAPARIN 40 MG/0.4 ML (LOVENOX) SYR SC SCH (11:21)
[2020-09-05] MEDS ORDERED: RT-ALBUINH IH (11:58)
[2020-09-05 15:16] VITALS: BP 129/72
== END 2020-09-05 15:00 | disposition home or self-care (01) | DRG 177 ==
LOC: EDUNIT# 09:45 → ER 09:47 → 4TH 11:30 → ICU 08-26 21:31 → 4TH 09-01 12:20
PROVIDERS: ADMIT Internal Medicine; ATTEND Internal Medicine
PROC: 5A09557 Assistance with Respiratory Ventilation, Greater than 96 Consecutive Hours, Continuous Positive Airway Pressure (ICD-10-PCS; principal; 2020-08-26)
DX: U07.1 COVID-19 (principal); J12.82 Pneumonia due to coronavirus disease 2019; J96.01 Acute respiratory failure with hypoxia; J15.9 Unspecified bacterial pneumonia; F17.210 Nicotine dependence, cigarettes, uncomplicated; Z73.0 Burn-out; I10 Essential (primary) hypertension; F41.9 Anxiety disorder, unspecified; F32.9 Major depressive disorder, single episode, unspecified; R53.81 Other malaise; R73.9 Hyperglycemia, unspecified
CPT/HCPCS: 36415; 36569; 36600; 71045; 76937; 80048; 80053; 80076; 80306; 81000; 82550; 82553; 82805; 82947; 83605; 83615; 83735; 83874; 83880; 84100; 84145; 84484; 84703; 85007; 85025; 85027; 85379; 85652; 86141; 87040; 87081; 93005; 93041; 94640; 94660; 94760; 94761; 96361; 96365; 96372; 96375; 96376

== ENCOUNTER → 2020-09-24 | Outpatient (CLI) | payer MEDICAID ==
[~2020-09-24] MED LIST changes: +ACET325T38 PO; +AMLO-250 PO; +DULO30CA49 PO; +LISI1TAB26 PO; +RT-ALBUINH IH
[2020-09-24 16:24] LABS: BILIRUBIN,URINE NEGATIVE (NEGATIVE); CLARITY,URINE SL CLOUDY; COLOR,URINE YELLOW; GLUCOSE, URINE (UA) NEGATIVE (NEGATIVE); KETONES,URINE NEGATIVE (NEGATIVE); LEUKOCYTE ESTERASE ,URINE NEGATIVE (NEGATIVE); NITRITE,URINE NEGATIVE (NEGATIVE); PROTEIN,URINE 1+ (NEGATIVE)
[2020-09-24 16:31] LABS: BACTERIA,URINE TRACE /HPF; RBC,URINE RARE /HPF; WBC,URINE RARE /HPF
== END ==
LOC: LAB 15:59
PROVIDERS: ATTEND Internal Medicine
DX: N39.0 Urinary tract infection, site not specified (principal)
CPT/HCPCS: 81000; 87088

== ENCOUNTER 2020-12-03 05:39 | Outpatient (CLI) | payer MEDICAID ==
[~2020-12-03] VITALS: Ht 165.1 cm; Wt 107.5 kg
[2020-12-03] MEDS ORDERED: MV-M1TAB20 PO (16:36)
[2020-12-03] MEDS ORDERED: ASPI-999 PO (16:36)
== END 2020-12-04 19:08 | disposition home or self-care (01) ==
LOC: PREOP 05:39
PROVIDERS: ATTEND Surgery
DX: Z01.818 Encounter for other preprocedural examination (principal)

== ENCOUNTER → 2021-09-09 | Outpatient (CLI) | payer MEDICAID ==
[~2021-09-09] MED LIST changes: +ASPI-999 PO; -LISI1TAB26 PO; +LISI1TAB48 PO; +MV-M1TAB20 PO
--- NOTE | 2021-09-09 18:27 | Diagnostic Imaging Report ---
PROCEDURE: US Non-ob pelvis comp/trans. TECHNIQUE: Multiple realtime grayscale images were obtained of the pelvis in various projections endovaginally. Transabdominal imaging was also performed. INDICATION: Abnormal uterine bleeding. FINDINGS: Uterus measures 10 x 5.2 x 6 cm. Endometrial stripe 1.3 cm. Myometrium has a rather heterogeneous appearance throughout without a definite discrete mass. Right ovary measures 3.3 x 1.5 x 1.8 cm. There is a 1.7 cm cyst. The left ovary measures 1.8 x 1 x 1.5 cm. There is an 8 mm simple cyst. There is normal blood flow to both ovaries. Transvaginal imaging shows a nabothian cyst measuring 5 mm. No adnexal fluid. IMPRESSION: 1. Heterogeneous appearing myometrium of the uterus can be seen with adenomyosis. 2. Simple-appearing bilateral ovarian cyst. Dictated by: Dictated on workstation # [id number]
== END ==
LOC: RAD 15:10
PROVIDERS: ATTEND Obstetrics & Gynecology
DX: N83.202 Unspecified ovarian cyst, left side (principal); N83.201 Unspecified ovarian cyst, right side
CPT/HCPCS: 76830; 76856